=== PATIENT | female | born 1950 | race Caucasian/White ===

== ENCOUNTER 2017-11-14 16:47 | Emergency (ER) | payer MEDICARE ==
[~2017-11-14] VITALS: Ht 160 cm; Wt 68.0 kg
[2017-11-14] MEDS ORDERED: ALBUTEROL/IPRATROPIUM 3 ML NEB NEB ONE (17:30)
[2017-11-14] MEDS ORDERED: METHYLPREDNISOLONE SOD SUCC 125 MG/2ML VIAL IV ONE (20:15)
[2017-11-14] MEDS ORDERED: LEVOFLOXACIN 750MG/D5W 150ML 150 ML IV ONE (20:15)
== END 2017-11-14 20:34 | disposition left against medical advice (07) ==
LOC: ER 16:47 → FSED 20:34
DX: R07.9 Chest pain, unspecified (principal); R79.89 Other specified abnormal findings of blood chemistry; D69.6 Thrombocytopenia, unspecified; R03.0 Elevated blood-pressure reading, without diagnosis of hypertension; J44.9 Chronic obstructive pulmonary disease, unspecified; F17.210 Nicotine dependence, cigarettes, uncomplicated
CPT/HCPCS: 71046; 80048; 85025; 93005; 99284; J2930

== ENCOUNTER 2017-11-17 15:43 | Emergency (ER) | payer MEDICARE ==
[~2017-11-17] VITALS: Ht 160 cm; Wt 68.0 kg
--- OUTSIDE RECORDS SUMMARY | 2017-11-17 15:46 | XMS REPORT | Continuity of Care Document ---
Author Author [facility] Organization [facility] Address [address] [facility] [place] [address] Phone Unavailable Care Team Providers Care Yarn Man Name Role Phone NONSTAFF PCP Unavailable Insurance Providers Guarantor Karina Forte Address [address] [place] [address] Email NONE Payer [employer] Medicare Advantage Policy Number [id number] Subscriber's Name Karina Forte Relationship 18 Self / Same As Patient Group Name RETIRED Advance Directives Directive Response Recorded Date/Time Does the patient have an advance directive? No 11/14/17 6:01pm If yes, is advance directive on file with [facility]? No 11/14/17 6:01pm If not on file with [facility] will patient provide a copy? No 11/14/17 6:01pm Do you have a Directive to Physician? No 11/14/17 6:01pm Do you have a Medical Power of Vacuum Drum Drier Operator? No 11/14/17 6:01pm Do you have an out of hospital Do Not Resuscitate Order? No 11/14/17 6:01pm Do you have any special needs we should be aware of? No 11/14/17 6:01pm Do you have a support person here with you today? Yes 11/14/17 6:01pm Did patient receive Notice of Privacy Practices? Yes 11/14/17 6:01pm Did patient receive patient rights and responsibilities? Yes 11/14/17 6:01pm Problems No problem information available. Medications No medication information available. Social History No social history information available. Hospital Discharge Instructions No hospital discharge instruction information available. Plan of Care Discharge Date 11/14/17 8:34pm Disposition AGAINST MEDICAL ADVICE Condition at Discharge Other Instructions/Education Provided COPD - Emphysema Pneumonia - Bacterial Forms Provided Work/School Excuse Prescriptions See Medication Section Additional Instructions/Education Return to ER, if symptoms worsen. You have signed out of the ER "Against Medical Advice." Follow-up with Dr. Coates on 11/17/17. Take medications, as prescribed. Recommend that you wear 2L Oxygen continuously at home, until instructed otherwise by Dr. Coates. Recommend that you do your nebulizer treatments every 4 hours, around the clock Functional Status No functional status information available. Allergies, Adverse Reactions, Alerts Allergen Type Severity Reaction Status Last Updated Hydromorphone Allergy Severe Active 11/14/17 Immunizations No immunization information available. Vital Signs Acute Vital Signs Vital Response Date/Time Pulse Pulse Rate (adult) 106 bpm (60 - 90) 11/14/2017 7:10pm Respiratory Rate 22 bpm (12 - 24) 11/14/2017 7:10pm Height 5 ft 3 in 11/14/2017 5:59pm Weight 150 lb 11/14/2017 5:59pm Body Mass Index 26.6 kg/m^2 11/14/2017 5:59pm Results No relevant diagnostic test, laboratory data and/or discharge summary information available. Procedures No procedure information available. Encounters Encounter Location Arrival/Admit Date Discharge/Depart Date Attending Provider Departed Emergency Room [facility] 11/14/17 4:47pm 8:34pm MAYCOL PEARCE MD
[2017-11-17] MEDS ORDERED: METHYLPREDNISOLONE SOD SUCC 125 MG/2ML VIAL IV ONE (16:00)
--- NOTE | 2017-11-17 16:40 | Diagnostic Imaging Report ---
PROCEDURE: A single AP view of the chest. COMPARISON: None. INDICATIONS: SHORTNESS OF BREATH FINDINGS: Lines/tubes: None. Lungs: The lungs are well inflated. There is mildly increased interstitial lung markings. Pleura: There is no significant pleural effusion or pneumothorax. Heart and mediastinum: The heart and the mediastinum are unremarkable. Aorta is mildly calcified and tortuous. Bones: No acute bony abnormality. IMPRESSION: Mildly increased interstitial lung markings, suggestive of mild interstitial edema. Otherwise, unremarkable. Dictated by: Charlie Villalpando M.D. on 11/17/2017 at 16:39 Electronically approved by: Charlei Villalpando M.D. on 11/17/2017 at 16:39
[2017-11-17] MEDS ORDERED: ALBUTEROL/IPRATROPIUM 3 ML NEB NEB ONE (16:45)
[2017-11-17] MEDS ORDERED: ALBUTEROL/IPRATROPIUM 3 ML NEB NEB PRN (16:45)
[2017-11-17 16:57] LABS: BASOPHILS # (AUTO) 0.1 (0.0-0.1); BASOPHILS % 0.7 % (0.0-1.0); EOSINOPHILS # (AUTO) 0.4 (0.0-0.4); EOSINOPHILS % 5.9 % (0.0-6.0); HEMATOCRIT 40.9 % (34.2-44.1); HEMOGLOBIN 14.6 g/dL (12.0-16.0); LYMPHOCYTES # (AUTO) 1.4 (1.0-3.2); LYMPHOCYTES % 18.9 % (18.0-39.1); MEAN CORPUSCULAR HEMOGLOBIN 29.7 pg (28-32); MEAN CORPUSCULAR HGB CONC 35.7 g/dL (31-35); MEAN CORPUSCULAR VOLUME 83.1 fL (81-99); MONOCYTES # (AUTO) 0.4 (0.2-0.8); MONOCYTES % 5.3 % (4.4-11.3); NEUTROPHILS # (AUTO) 4.9 (2.1-6.9); NEUTROPHILS % 68.6 % (38.7-80.0); PLATELET COUNT 113 x10e3/uL (140-360); RED BLOOD COUNT 4.92 x10e6/uL (3.6-5.1); RED CELL DISTRIBUTION WIDTH 14.6 % (11.7-14.4)
[2017-11-17 17:16] LABS: ALANINE AMINOTRANSFERASE 32 IU/L (0-55); ALBUMIN/GLOBULIN RATIO 1.2 (0.8-2.0); ALKALINE PHOSPHATASE 118 IU/L (40-150); BLOOD UREA NITROGEN 10 mg/dL (7-26); BUN/CREATININE RATIO 15 (6-25); CALCIUM 9.2 mg/dL (8.4-10.2); CARBON DIOXIDE 25 mmol/L (22-29); CHLORIDE 105 mmol/L (98-107); CREATINE KINASE 75 IU/L (29-168); CREATININE, SERUM 0.67 mg/dL (0.57-1.11); EST GLOMERULAR FILTRATION RATE > 60 ML/MIN (60-); GLUCOSE 136 mg/dL (74-118); LIPASE 31 U/L (8-78); MAGNESIUM 1.4 MG/DL (1.3-2.1); SODIUM 140 mmol/L (136-145)
[2017-11-17 17:35] LABS: THYROID STIMULATING HORMONE 0.737 uIU/mL (0.350-4.940)
[2017-11-17] MEDS ORDERED: SODIUM CHLORIDE 0.9% 1000ML 1,000 ML IV STA (17:59)
[2017-11-17 18:14] LABS: BILIRUBIN,URINE NEGATIVE (NEGATIVE); CLARITY,URINE CLEAR (CLEAR); COLOR,URINE YELLOW (YELLOW); KETONES,URINE NEGATIVE (NEGATIVE); LEUKOCYTE ESTERASE ,URINE NEGATIVE (NEGATIVE); NITRITE,URINE NEGATIVE (NEGATIVE); PROTEIN,URINE DIPSTICK NEGATIVE (NEGATIVE); URINE UROBILINOGEN 0.2 mg/dL (0.2 - 1)
[2017-11-17 18:28] LABS: BACTERIA,URINE FEW /HPF; EPITHELIAL CELLS,URINE MODERATE /LPF
[2017-11-17] MEDS ORDERED: SODIUM CHLORIDE 0.9% 1000ML 1,000 ML IV SCH (18:28)
[2017-11-17] MEDS ORDERED: NICOTINE 21 MG/EA PATCH TOP SCH (18:30)
[2017-11-17] MEDS ORDERED: AZITHROMYCIN 500MG/SOD CHL 0.9% 250ML BAG IV SCH (18:30)
[2017-11-17] MEDS ORDERED: ASPIRIN 81 MG ENTERIC COATED PO SCH (18:45)
[2017-11-17] MEDS ORDERED: AZITHROMYCIN 500MG/NS 250 ML 250 ML IV SCH (18:45)
[2017-11-17] MEDS: NITROGLYCERIN 0.4 MG SUBL SL PRN ×2 (18:55→19:00)
[2017-11-17] MEDS ORDERED: IPRATROPIUM BROMIDE 0.02% 2.5 ML NEB NEB SCH (19:00)
[2017-11-17] MEDS ORDERED: ALBUTEROL SULF 0.083% NEB SOLN 3 ML NEB NEB SCH (19:00)
[2017-11-18] MEDS ORDERED: METHYLPREDNISOLONE SOD SUCC 40 MG/ML VIAL IV SCH
[2017-11-18] MEDS ORDERED: ASPIRIN 325 MG TAB PO SCH (09:00)
== END 2017-11-17 20:02 | disposition left against medical advice (07) ==
LOC: ER 15:43
DX: R06.09 Other forms of dyspnea (principal); R07.9 Chest pain, unspecified; J44.9 Chronic obstructive pulmonary disease, unspecified; F17.210 Nicotine dependence, cigarettes, uncomplicated; Z99.81 Dependence on supplemental oxygen
CPT/HCPCS: 36415; 71045; 80053; 81001; 82550; 82553; 83605; 83690; 83735; 83880; 84443; 84484; 85025; 87040; 87400; 93005; 94640; 99284; J0456; J2930; J7030

== ENCOUNTER 2018-02-23 17:13 | Observation (INO) | payer MEDICARE ==
[~2018-02-23] VITALS: Ht 157.5 cm; Wt 73.7 kg
--- OUTSIDE RECORDS SUMMARY | 2018-02-23 17:16 | XMS REPORT | Continuity of Care Document ---
Author Author [facility] Organization [facility] Address [address] [place] [address] Phone Unavailable Care Team Providers Care Armhole Baster Hand Name Role Phone NONSTAFF PCP Unavailable Insurance Providers Guarantor Karina Forte Address [address] [place] [address] [facility] [employer] Medicare Advantage Policy Number [id number] Subscriber's Name Karina Forte Relationship 18 Self / Same As Patient Group Name RETIRED Effective Date 93 Advance Directives Directive Response Recorded Date/Time Does the patient have an advance directive? No 11/14/17 6:01pm If yes, is advance directive on file with [facility]? No 11/14/17 6:01pm If not on file with [facility] will patient provide a copy? No 11/14/17 6:01pm Do you have a Directive to Physician? No 11/17/17 4:07pm Do you have a Medical Power of Mold Stacker? No 11/17/17 4:07pm Do you have an out of hospital Do Not Resuscitate Order? No 11/17/17 4:07pm Do you have any special needs we should be aware of? No 11/17/17 4:07pm Do you have a support person here with you today? Yes 11/17/17 4:07pm Did patient receive Notice of Privacy Practices? Yes 11/17/17 4:07pm Did patient receive patient rights and responsibilities? Yes 11/17/17 4:07pm Problems No problem information available. Medications No medication information available. Social History Smoking Status Start Date Stop Date Current every day smoker Hospital Discharge Instructions No hospital discharge instruction information available. Plan of Care Discharge Date 11/17/17 8:02pm Disposition AGAINST MEDICAL ADVICE Condition at Discharge Stable Forms Provided Work/School Excuse Prescriptions See Medication Section Functional Status No functional status information available. Allergies, Adverse Reactions, Alerts Allergen Type Severity Reaction Status Last Updated Hydromorphone Allergy Severe Active 11/14/17 Immunizations No immunization information available. Vital Signs Acute Vital Signs Vital Response Date/Time Pulse Pulse Rate (adult) 95 bpm (60 - 90) 11/17/2017 6:00pm Pulse Pulse Rate (adult) 88 bpm (60 - 90) 11/17/2017 6:00pm Respiratory Rate 18 bpm (12 - 24) 11/17/2017 6:00pm Height 5 ft 3 in 11/17/2017 4:00pm Weight 150 lb 11/17/2017 4:00pm Body Mass Index 26.6 kg/m^2 11/17/2017 4:00pm Results Laboratory Results Test Name Result Units Flags Reference Collection Date/Time Result Date/ Time Comments White Blood Count 7.16 x10e3/uL 4.8-10.8 11/17/2017 4:40pm 11/17/2017 4 :59pm Red Blood Count 4.92 x10e6/uL 3.6-5.1 11/17/2017 4:40pm 11/17/2017 4: 59pm Hemoglobin 14.6 g/dL 12.0-16.0 11/17/2017 4:40pm 11/17/2017 4:59pm Hematocrit 40.9 % 34.2-44.1 11/17/2017 4:40pm 11/17/2017 4:59pm Mean Corpuscular Volume 83.1 fL 81-99 11/17/2017 4:40pm 11/17/2017 4: 59pm Mean Corpuscular Hemoglobin 29.7 pg 28-32 11/17/2017 4:40pm 11/17/2017 4:59pm Mean Corpuscular Hemoglobin Concent 35.7 g/dL H 31-35 11/17/2017 4:40pm 11/17/2017 4:59pm Red Cell Distribution Width 14.6 % H 11.7-14.4 11/17/2017 4:40pm 2017 4:59pm Platelet Count 113 x10e3/uL L 140-360 11/17/2017 4:40pm 11/17/2017 4: 59pm Neutrophils (%) (Auto) 68.6 % 38.7-80.0 11/17/2017 4:40pm 11/17/2017 4: 59pm Lymphocytes (%) (Auto) 18.9 % 18.0-39.1 11/17/2017 4:40pm 11/17/2017 4: 59pm Monocytes (%) (Auto) 5.3 % 4.4-11.3 11/17/2017 4:40pm 11/17/2017 4: 59pm Eosinophils (%) (Auto) 5.9 % 0.0-6.0 11/17/2017 4:40pm 11/17/2017 4: 59pm Basophils (%) (Auto) 0.7 % 0.0-1.0 11/17/2017 4:40pm 11/17/2017 4:59pm IM GRANULOCYTES % 0.6 % 0.0-1.0 11/17/2017 4:40pm 11/17/2017 4:59pm Neutrophils # (Auto) 4.9 2.1-6.9 11/17/2017 4:40pm 11/17/2017 4:59pm Lymphocytes # (Auto) 1.4 1.0-3.2 11/17/2017 4:40pm 11/17/2017 4:59pm Monocytes # (Auto) 0.4 0.2-0.8 11/17/2017 4:40pm 11/17/2017 4:59pm Eosinophils # (Auto) 0.4 0.0-0.4 11/17/2017 4:40pm 11/17/2017 4:59pm Basophils # (Auto) 0.1 0.0-0.1 11/17/2017 4:40pm 11/17/2017 4:59pm Absolute Immature Granulocyte (auto 0.04 x10e3/uL 0-0.1 11/17/2017 4: 40pm 11/17/2017 4:59pm Urine Color YELLOW YELLOW 11/17/2017 6:10pm 11/17/2017 6:15pm Urine Clarity CLEAR CLEAR 11/17/2017 6:10pm 11/17/2017 6:15pm Urine Specific [place] 1.015 1.010-1.025 11/17/2017 6:10pm 2017 6:15pm Urine pH 8 H 5 - 7 11/17/2017 6:10pm 11/17/2017 6:15pm Urine Leukocyte Esterase NEGATIVE NEGATIVE 11/17/2017 6:10pm 2017 6:15pm Urine Nitrite NEGATIVE NEGATIVE 11/17/2017 6:10pm 11/17/2017 6:15pm Urine Protein NEGATIVE NEGATIVE 11/17/2017 6:10pm 11/17/2017 6:15pm Urine Glucose (UA) NEGATIVE NEGATIVE 11/17/2017 6:10pm 11/17/2017 6: 15pm Urine Ketones NEGATIVE NEGATIVE 11/17/2017 6:10pm 11/17/2017 6:15pm Urine Urobilinogen 0.2 mg/dL 0.2 - 1 11/17/2017 6:10pm 11/17/2017 6: 15pm Urine Bilirubin NEGATIVE NEGATIVE 11/17/2017 6:10pm 11/17/2017 6: 15pm Urine Blood NEGATIVE NEGATIVE 11/17/2017 6:10pm 11/17/2017 6:15pm Urine WBC NONE /HPF 0-5 11/17/2017 6:10pm 11/17/2017 6:28pm Urine RBC NONE /HPF 0-5 11/17/2017 6:10pm 11/17/2017 6:28pm Urine Bacteria FEW /HPF NONE 11/17/2017 6:10pm 11/17/2017 6:28pm Urine Epithelial Cells MODERATE /LPF NONE 11/17/2017 6:10pm 11/17/2017 6:28pm Sodium Level 140 mmol/L 136-145 11/17/2017 4:40pm 11/17/2017 5:17pm Potassium Level 4.0 mmol/L 3.5-5.1 11/17/2017 4:40pm 11/17/2017 5:17pm Chloride Level 105 mmol/L 98-107 11/17/2017 4:40pm 11/17/2017 5:17pm Influenza Virus Types A,B Antigen NEGATIVE NEGATIVE 11/17/2017 6:30pm 11/17/2017 6:53pm Carbon Dioxide Level 25 mmol/L 22-29 11/17/2017 4:40pm 11/17/2017 5: 17pm Anion Gap 14.0 mmol/L 8-16 11/17/2017 4:40pm 11/17/2017 5:17pm Blood Urea Nitrogen 10 mg/dL 7-26 11/17/2017 4:40pm 11/17/2017 5:17pm Creatinine 0.67 mg/dL 0.57-1.11 11/17/2017 4:40pm 11/17/2017 5:17pm BUN/Creatinine Ratio 15 6-25 11/17/2017 4:40pm 11/17/2017 5:17pm Estimat Glomerular Filtration Rate > 60 ML/MIN 60- 11/17/2017 4:40pm 5:17pm Ranges were taken from the National Kidney Disease Education Program and the National Kidney Foundation literature. Reference ranges: 60 or greater: Normal 16-59 (for 3 consecutive months): Chronic kidney disease 15 or less: Kidney failure Glucose Level 136 mg/dL H 74-118 11/17/2017 4:40pm 11/17/2017 5:17pm Calcium Level 9.2 mg/dL 8.4-10.2 11/17/2017 4:40pm 11/17/2017 5:17pm Lactic Acid Level 17.4 MG/DL 4.5-19.8 11/17/2017 4:40pm 11/17/2017 5: 09pm Magnesium Level 1.4 MG/DL 1.3-2.1 11/17/2017 4:40pm 11/17/2017 5:17pm Total Bilirubin 0.7 mg/dL 0.2-1.2 11/17/2017 4:40pm 11/17/2017 5:17pm Aspartate Amino Transf (AST/SGOT) 25 IU/L 5-34 11/17/2017 4:40pm 2017 5:17pm Alanine Aminotransferase (ALT/SGPT) 32 IU/L 0-55 11/17/2017 4:40pm 01/2018 5:17pm Total Protein 7.3 g/dL 6.5-8.1 11/17/2017 4:40pm 11/17/2017 5:17pm Albumin 4.0 g/dL 3.5-5.0 11/17/2017 4:40pm 11/17/2017 5:17pm Globulin 3.3 g/dL 2.3-3.5 11/17/2017 4:40pm 11/17/2017 5:17pm Albumin/Globulin Ratio 1.2 0.8-2.0 11/17/2017 4:40pm 11/17/2017 5: 17pm Alkaline Phosphatase 118 IU/L 40-150 11/17/2017 4:40pm 11/17/2017 5: 17pm B-Type Natriuretic Peptide 153.0 pg/mL H 0-100 11/17/2017 4:40pm 2017 5:21pm Creatine Kinase 75 IU/L 29-168 11/17/2017 4:40pm 11/17/2017 5:17pm Creatine Kinase MB 1.80 ng/mL 0-5.0 11/17/2017 4:40pm 11/17/2017 5: 40pm Troponin I 0.005 ng/mL 0-0.300 11/17/2017 4:40pm 11/17/2017 5:40pm Lipase 31 U/L 8-78 11/17/2017 4:40pm 11/17/2017 5:17pm Thyroid Stimulating Hormone (TSH) 0.737 uIU/mL 0.350-4.940 11/17/2017 4: 40pm 11/17/2017 5:40pm Procedures No procedure information available. Encounters Encounter Location Arrival/Admit Date Discharge/Depart Date Attending Provider Departed Emergency Room [facility] 11/17/17 3:43pm 8:02pm VLAD CANTU MD Departed Emergency Room [facility] 11/14/17 4:47pm 8:34pm MAYCOL PEARCE MD
--- OUTSIDE RECORDS SUMMARY | 2018-02-23 17:16 | XMS REPORT ---
Author Author [facility] Address Unknown Phone Unavailable Care Team Providers Care Director It Name Role Phone VLAD CANTU Unavailable Unavailable Problems This patient has no known problems. Allergies, Adverse Reactions, Alerts This patient has no known allergies or adverse reactions. Medications This patient has no known medications. Results Test Description Test Time Test Comments Text Results Atomic Results Result Comments CHEST SINGLE (PORTABLE) [place] [id number] Patient Name: NILSON FORTE MR #: [id number] : 1950 Age/Sex: 67/F Req #: [id number] Adm Physician: Ordered by: S[employer]TO [employer]AN[employer] COIN COLLECTOR Report #: [id number] Location: ER Room/Bed: Procedure: [id number] DX/CHEST SINGLE (PORTABLE) Exam Date: Exam Time: REPORT STATUS: Signed PROCEDURE: A single AP view of the chest. COMPARISON: None. INDICATIONS: SHORTNESS OF BREATH FINDINGS: Lines/tubes: None. Lungs: The lungs are well inflated. There is mildly increased interstitial lung markings. Pleura: There is no significant pleural effusion or pneumothorax. Heart and mediastinum: The heart and the mediastinum are unremarkable. Aorta is mildly calcified and tortuous. Bones: No acute bony abnormality. IMPRESSION: Mildly increased interstitial lung markings, suggestive of mild interstitial edema. Otherwise, unremarkable. Dictated by: Charlie Friedman M.D. on 11/17/2017 at 16:39 Electronically approved by: Charlie Friedman M.D. on 11/17/2017 at 16:39 Dictated By: CHARLIE FRIEDMAN MD [id number] Transcribed By: DINORA on 11/17/17 1640 COPY TO: SIXTO [employer]ANING NP
[2018-02-23] MEDS ORDERED: IPRATROPIUM BROMIDE 0.02% 2.5 ML NEB NEB STA (17:37)
[2018-02-23] MEDS ORDERED: SODIUM CHLORIDE 0.9% 500ML 500 ML IV STA (17:37)
[2018-02-23] MEDS ORDERED: ALBUTEROL SULF 0.083% NEB SOLN 3 ML NEB NEB STA (17:40)
[2018-02-23] MEDS ORDERED: METHYLPREDNISOLONE SOD SUCC 125 MG/2ML VIAL IV ONE (17:45)
--- NOTE | 2018-02-23 18:19 | Diagnostic Imaging Report ---
PROCEDURE: A single AP view of the chest. COMPARISON: Chest x-ray 11/17/2017. INDICATIONS: chest pains, copd, coughing up blood FINDINGS: Lines/tubes: None. Lungs: Lungs are inflated. Mild bibasilar atelectasis. Pleura: There is no pleural effusion or pneumothorax. Heart and mediastinum: The heart and the mediastinum are unremarkable. Aorta is mildly tortuous with atherosclerotic calcifications. Bones: No acute bony abnormality. IMPRESSION: Mild bibasilar atelectasis. No acute cardiopulmonary disease. Dictated by: Deonte Celis M.D. on 02/23/2018 at 18:22 Electronically approved by: Deonte Celis M.D. on 02/23/2018 at 18:22
--- NOTE | 2018-02-23 18:28 | Diagnostic Imaging Report ---
History:Syncope Comparison studies:None Technique: Axial images were obtained from the skull base to the vertex. Coronal and sagittal images reconstructed from the axial data. Intravenous contrast: None Findings: Some of the images are degraded by motion artifact. In spite of the artifacts: Scalp/skull: No abnormalities. Extra-axial spaces: No masses. No fluid collections. Brain sulci: Mildly prominent. Ventricles: Mild compensatory dilatation. No hydrocephalus. Parenchyma: Subtle hypodensities in the supratentorial white matter are small vessel ischemic changes. No masses, hemorrhage, acute or chronic cortical vascular insults. Sellar/suprasellar region: No abnormalities. Craniocervical junction: Patent foramen magnum. No Chiari one malformation. Incidental findings: Atherosclerotic calcifications in the carotid siphons . Impression: No acute abnormalities in spite of motion artifacts. Chronic findings: 1. Mild generalized volume loss. 2. Mild supratentorial white matter small vessel ischemic changes. Signed by: Dr. Jai Shin M.D. on 02/23/2018 7:31 PM
[2018-02-23 19:07] LABS: BASOPHILS # (AUTO) 0.1 (0.0-0.1); BASOPHILS % 0.9 % (0.0-1.0); EOSINOPHILS # (AUTO) 0.3 (0.0-0.4); EOSINOPHILS % 4.4 % (0.0-6.0); HEMATOCRIT 42.3 % (34.2-44.1); HEMOGLOBIN 15.1 g/dL (12.0-16.0); LYMPHOCYTES # (AUTO) 1.6 (1.0-3.2); LYMPHOCYTES % 21.4 % (18.0-39.1); MEAN CORPUSCULAR HGB CONC 35.7 g/dL (31-35); MEAN CORPUSCULAR VOLUME 83.9 fL (81-99); MONOCYTES # (AUTO) 0.5 (0.2-0.8); MONOCYTES % 6.5 % (4.4-11.3); NEUTROPHILS # (AUTO) 4.9 (2.1-6.9); NEUTROPHILS % 66.3 % (38.7-80.0); PLATELET COUNT 148 x10e3/uL (140-360); RED BLOOD COUNT 5.04 x10e6/uL (3.6-5.1); RED CELL DISTRIBUTION WIDTH 13.7 % (11.7-14.4)
[2018-02-23 19:18] LABS: INR 1.09; PROTHROMBIN TIME 13.3 seconds (11.9-14.5)
[2018-02-23 19:19] LABS: PARTIAL THROMBOPLASTIN TIME 29.7 seconds (23.8-35.5)
[2018-02-23 19:26] LABS: ALANINE AMINOTRANSFERASE 28 IU/L (0-55); ALBUMIN 4.1 g/dL (3.5-5.0); ALBUMIN/GLOBULIN RATIO 1.1 (0.8-2.0); ALKALINE PHOSPHATASE 211 IU/L (40-150); BLOOD UREA NITROGEN 13 mg/dL (7-26); BUN/CREATININE RATIO 18 (6-25); CALCIUM 10.2 mg/dL (8.4-10.2); CARBON DIOXIDE 26 mmol/L (22-29); CHLORIDE 102 mmol/L (98-107); CREATINE KINASE 64 IU/L (29-168); CREATININE, SERUM 0.74 mg/dL (0.57-1.11); EST GLOMERULAR FILTRATION RATE > 60 ML/MIN (60-); GLUCOSE 134 mg/dL (74-118); MAGNESIUM 1.5 MG/DL (1.3-2.1); SODIUM 139 mmol/L (136-145)
--- NOTE | 2018-02-23 19:37 | Diagnostic Imaging Report ---
History: Syncope Comparison studies: None Technique: Axial images were obtained through the cervical region.. Coronal and sagittal images reconstructed from the axial data.. Intravenous contrast: None Findings: Fractures: None. Soft tissues: No gross abnormalities. Atlantoaxial articulation: Mild degenerative changes. Alignment: Normal lordosis. No scoliosis. Cervicomedullary junction: No abnormalities. The foramen magnum is patent. Vertebrae: No infection or neoplasm. Degenerative changes: Mildly degenerated discs at C3-4 and from C5 to C7. Mild bilateral facet arthrosis from C2 to T1 Patent spinal canal and foramina. No disc herniations. IMPRESSION: 1. No acute abnormalities. 2. Cannot adequately evaluate for ligament, spinal cord and or vascular abnormalities. 3. Degenerative changes as described. Signed by: Dr. Jai Shin M.D. on 02/23/2018 7:34 PM
[2018-02-23] MEDS ORDERED: KETOROLAC TROMETHAMINE 30 MG/ML VIAL IV ONE (20:00)
[2018-02-23] MEDS ORDERED: ONDANSETRON HCL INJ 2 MG/ML VIAL IV PRN (20:00)
[2018-02-23] MEDS ORDERED: ACETAMINOPHEN 325 MG TAB PO PRN (20:00)
[2018-02-23] MEDS ORDERED: MORPHINE SULFATE 2 MG/ML SYR IV PRN (20:45)
[2018-02-23 22:57] VITALS: BP 142/69
[2018-02-23] MEDS: METHYLPREDNISOLONE SOD SUCC 125 MG/2ML VIAL IV SCH (23:25)
[2018-02-23 23:55] VITALS: BP 142/69
[2018-02-24] MEDS: ALBUTEROL SULF 0.083% NEB SOLN 3 ML NEB NEB SCH ×3 (00:05→07:00)
[2018-02-24] MEDS: IPRATROPIUM BROMIDE 0.02% 2.5 ML NEB NEB SCH ×5 (00:05→15:00)
[2018-02-24] MEDS ORDERED: TEMAZEPAM15 MG PO (00:25)
[2018-02-24] MEDS ORDERED: LORAZEPAM1 MG PO (00:29)
[2018-02-24] MEDS ORDERED: BACLOFEN10 MG PO (00:29)
[2018-02-24] MEDS ORDERED: PROAIR HFA INH8.5 GM INH (00:29)
[2018-02-24] MEDS ORDERED: ASPIRIN81 MG PO (00:29)
[2018-02-24] MEDS ORDERED: CODEINE SULFATE30 MG PO (00:29)
[2018-02-24] MEDS ORDERED: TEMAZEPAM 15 MG CAP PO SCH ×2 (00:31→21:00)
[2018-02-24 04:10] VITALS: BP 133/78
[2018-02-24 04:13] LABS: CREATINE KINASE MB 1.9 ng/mL (0-5.0)
[2018-02-24] MEDS: METHYLPREDNISOLONE SOD SUCC 125 MG/2ML VIAL IV SCH (05:20)
[2018-02-24 05:42] LABS: BASOPHILS % 0.5 % (0.0-1.0); HEMATOCRIT 35.8 % (34.2-44.1); LYMPHOCYTES # (AUTO) 0.5 (1.0-3.2); LYMPHOCYTES % 23.4 % (18.0-39.1); MEAN CORPUSCULAR HEMOGLOBIN 29.8 pg (28-32); MEAN CORPUSCULAR HGB CONC 35.8 g/dL (31-35); MEAN CORPUSCULAR VOLUME 83.4 fL (81-99); MONOCYTES % 1.5 % (4.4-11.3); NEUTROPHILS # (AUTO) 1.5 (2.1-6.9); NEUTROPHILS % 74.1 % (38.7-80.0); PLATELET COUNT 100 x10e3/uL (140-360); RED BLOOD COUNT 4.29 x10e6/uL (3.6-5.1); RED CELL DISTRIBUTION WIDTH 13.3 % (11.7-14.4)
[2018-02-24 06:02] LABS: ALANINE AMINOTRANSFERASE 23 IU/L (0-55); ALBUMIN 3.4 g/dL (3.5-5.0); ALKALINE PHOSPHATASE 176 IU/L (40-150); ANION GAP 11.7 mmol/L (8-16); BLOOD UREA NITROGEN 17 mg/dL (7-26); BUN/CREATININE RATIO 23 (6-25); CALCIUM 9.6 mg/dL (8.4-10.2); CARBON DIOXIDE 25 mmol/L (22-29); CHLORIDE 104 mmol/L (98-107); CHOLESTEROL 139 MD/DL (0-199); CREATININE, SERUM 0.73 mg/dL (0.57-1.11); EST GLOMERULAR FILTRATION RATE > 60 ML/MIN (60-); GLUCOSE 285 mg/dL (74-118); HDL CHOLESTEROL 46 MG/DL (40-60); LDL CHOLESTEROL 84 MG/DL (60-130); POTASSIUM 4.7 mmol/L (3.5-5.1); SODIUM 136 mmol/L (136-145); TRIGLYCERIDES 47 MG/DL (0-149)
[2018-02-24 06:09] LABS: HEMOGLOBIN 12.8 g/dL (12.0-16.0)
[2018-02-24 06:23] LABS: FREE THYROXINE INDEX 2.1305 (1.4-3.8); THYROID STIMULATING HORMONE 0.203 uIU/mL (0.350-4.940)
[2018-02-24 08:05] VITALS: BP 133/78
[2018-02-24] MEDS ORDERED: ASPIRIN 81 MG ENTERIC COATED PO SCH (09:00)
[2018-02-24] MEDS ORDERED: NICOTINE 21 MG/EA PATCH TOP SCH (09:00)
[2018-02-24 09:16] VITALS: BP 144/74
[2018-02-24] MEDS ORDERED: LIDOCAINE 1% W/EPINEPHRINE 20 ML VIAL ONE (11:35)
[2018-02-24] MEDS ORDERED: SODIUM CHLORIDE 0.9% 100 ML 0 ML ONE (12:25)
[2018-02-24] MEDS ORDERED: CEFAZOLIN SOD 1 GM VIAL ONE (12:25)
[2018-02-24 12:45] VITALS: BP 138/78
--- NOTE | 2018-02-24 13:11 | Consultation ---
DATE OF CONSULTATION: February 24, 2018 REASON FOR CONSULTATION: Recurrent syncope. HISTORY OF PRESENT ILLNESS: Ms. Mack is a 67-year-old lady with past medical history of COPD, emphysema, anxiety, chronic back pains and knee pains who has been experiencing recurrent syncope episodes for the past several months. She reports that all of a sudden light goes out and she is on the floor and is more less back to normal. Most recently she has been utilizing a walking aid to hopefully help her out and minimize any sort of injury. On Friday she was walking with her walker and she passed out without any prodrome symptoms and woke up on the floor shortly afterwards without any luckily major injuries. She denies any loss of bowel or bladder habits. No prior history of seizure disorder. On Friday patient was found on the floor after waking up from her bed and was walking around in her room and had a second episode of such. On telemetry monitoring she has been in normal sinus rhythm. Biomarkers are negative. EKG revealed normal sinus rhythm. Long discussion with the patient and family in terms of management options. PAST MEDICAL HISTORY 1. Anxiety. 2. Insomnia. 3. COPD/emphysema. 4. History of bowel obstruction. 5. 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 6. GERD. PAST SURGICAL HISTORY 1. Hysterectomy. 2. Bilateral tubal ligation. 3. History of right total knee arthroplasty surgery. 4. History of back surgery. 5. History of partial colectomy. 6. History of cholecystectomy. 7. History of tonsillectomy. FAMILY HISTORY: Mother alive at 82, had a stroke. Father is unknown. She has had a sister who had stroke and heart attack later in life. SOCIAL HISTORY: She is a smoker since the age of 16, has a 50-pack year smoking history. Denies any alcohol or illicit drug use. ALLERGIES: DILAUDID WHICH CAUSES CONFUSION. CURRENT MEDICATIONS: Include aspirin 81 mg daily, Atrovent p.r.n., Tylenol, temazepam 15 nightly, Zofran 4 mg p.r.n. and nicotine patch. REVIEW OF SYSTEMS GENERAL: Denies any fevers, chills, or any weight changes. HEENT: There is occasional visual blurriness. No sore throat or stuffy nose. RESPIRATORY: Denies any pleuritic chest pain. Has chronic exertional dyspnea. CARDIOVASCULAR: Denies any chest pain or discomfort. Recurrent syncope as per HPI. GI: Positive for constipation and occasional GERD. No bright red blood, melena, hematemesis. : Denies any dysuria, pyuria, urinary frequency. ENDOCRINE: No diabetes or thyroid issues. NEUROLOGIC: Positive for recurrent syncope. Has some gait unsteadiness and utilizes a walking aid for ambulation. EXTREMITIES: Positive for intermittent ankle swelling and bilateral knee pain and does report back pain. Remainder of review of systems negative otherwise as mentioned. PHYSICAL EXAMINATION VITAL SIGNS: Height of 5 feet 2 inches, weight of 168 pounds. Temperature 96.4, pulse 75, respiratory rate 20, O2 sat 94% on room air, pulse of 75. GENERAL: This is a well-nourished, well-developed lady who appears older than stated age. Currently no apparent distress. HEENT: Pupils equal, round and react to light. Extraocular movements are intact. Oropharynx is clear. NECK: No elevation in jugular venous pulsation. Faint bilateral carotid bruits. CARDIOVASCULAR: Regular rate and rhythm. Normal S1, S2. Soft 2/6 systolic murmur to the left lower sternal border. LUNGS: Show diminished air flow and poor air entry compatible with COPD type changes. ABDOMEN: Soft, nontender, nondistended. Normoactive bowel sounds. There is stigmata of old surgical scars. BACK: No costovertebral angle tenderness. EXTREMITIES: Warm with absent pedal pulses, 1+ femoral pulses and right total knee replacement scar. NEUROLOGIC: Cranial nerves II-XII seemingly preserved. Strength is weak all 4 extremities but symmetric and has abnormal gait. LABS: Reviewed. White count 2.05, hemoglobin 12.8, hematocrit 35.8, platelets of 100. Sodium 136, potassium 4.7, chloride 104, bicarb 25, BUN 17, creatinine 0.73, glucose 285. INR is 1.09, AST 26, ALT 23, alk phos 176, total bili 1.2. EKG reveals normal sinus rhythm, normal axis. No ST-T wave changes concerning for ischemia. DIAGNOSES 1. Recurrent syncopal episodes with some suspicion that this could be cardiogenic in origin but unclear etiology. 2. Chronic obstructive pulmonary disease smoker. 3. Severe degenerative joint disease and debility. 4. Chronic back pain. Does report taking pain medications at home. 5. Exertional dyspnea. PLAN/RECOMMENDATIONS 1. From a cardiovascular standpoint, we will go ahead and proceed with implantable loop recorder as we need to definitively find out if this recurrent syncope is cardiac in origin. She has had previous hospitalizations for this issue according to the patient and we need to come up with a definitive diagnosis and this would be the best way how. 2. We will check echocardiogram to evaluate her cardiac function. 3. We will continue telemetry monitoring while she is here. 4. Carotid duplex in light of her carotid bruits and heavy smoking history. 5. We will continue to follow this patient. Thank you for this referral. Job#: [id number] MARIBEL
--- NOTE | 2018-02-24 15:04 | Operative Report ---
DATE OF PROCEDURE: February 24, 2018 PROCEDURE PERFORMED: Implantation of an implantable loop recorder. INDICATIONS FOR THE PROCEDURE: This is a 67-year-old lady with history of recurrent syncope of unknown origin. The patient has had multiple collapse spells without prodrome, and this is to definitively figure out any cardiac source of syncope and prolonged monitoring. DESCRIPTION OF PROCEDURE: After risks, benefits, pros and cons of today's procedure were explained to the patient as well as the patient's sister, they agreed to proceed. She was brought down to the cardiac catheterization laboratory where the left parasternal region was prepped and draped in the usual sterile fashion. One percent lidocaine solution with 1:100,000 epinephrine solution was utilized to numb the left parasternal region at the 4th and 5th left intercostal space at a 45-degree trajectory heading towards the apex. At that point in time, we took the Medtronic injectable loop recorder, specifically the Reveal LINQ device. We took initially the scalpel and made a stab incision. Next, we took the injection system of the Reveal LINQ and injected it into the space for the delivery system. At the conclusion of the case, the skin was approximated, and Dermabond solution was applied, achieving well approximation, and no blood loss was attributed to the case. COMPLICATIONS: None. ESTIMATED BLOOD LOSS: None. FINDINGS 1. Successful implantation of a Medtronic Reveal LINQ, serial number [id number], MR conditional device, successfully implanted in the 4th to 5th left intercostal space with a trajectory towards the apex without any complications. 2. IV Ancef was given for antibiotic prophylaxis. PLAN/RECOMMENDATIONS 1. Patient will be instructed to keep a dressing on the incision site for about 5 days, and then she can take it off. 2. Further plan/recommendations after the next syncopal episode so that we can determine if there are any cardiac or other issues. Job#: [id number] TIMBO [place]
[2018-02-24 17:00] VITALS: BP 146/78
[2018-02-25] MEDS ORDERED: NS IV PRN (00:15)
[2018-02-25] MEDS ORDERED: CEFAZOLIN SOD IV PRN (00:15)
[2018-02-25] MEDS ORDERED: CEFAZOLIN SOD 1 GM VIAL IV PRN (05:00)
== END 2018-02-24 17:37 | disposition home or self-care (01) ==
LOC: ER 17:13 → ERHOLD 21:09 → MED/SURG2 22:49
PROVIDERS: ADMIT Internal Medicine; ATTEND Internal Medicine
DX: R55 Syncope and collapse (principal); J44.1 Chronic obstructive pulmonary disease with (acute) exacerbation; J96.10 Chronic respiratory failure, unspecified whether with hypoxia or hypercapnia; F17.210 Nicotine dependence, cigarettes, uncomplicated; G89.29 Other chronic pain; M17.0 Bilateral primary osteoarthritis of knee; Z82.3 Family history of stroke
CPT/HCPCS: 33282; 36415 ×2; 70450; 71045; 72125; 80053 ×2; 80061; 82550 ×2; 82553 ×2; 83735; 83880; 84436; 84443 ×2; 84479; 84484 ×2; 85025 ×2; 85610; 85730; 93005; 93306; 93880; 94640 ×3; 99284; C1764; G0378 ×2; J1885; J2930 ×2; J7040; J0690

== ENCOUNTER 2018-04-02 16:52 | Emergency (ER) | payer MEDICARE ==
[~2018-04-02] VITALS: Ht 157.5 cm; Wt 73.5 kg
[~2018-04-02 16:52] MED LIST: ASPIRIN81 MG PO; BACLOFEN10 MG PO; CODEINE SULFATE30 MG PO; LORAZEPAM1 MG PO; PROAIR HFA INH8.5 GM INH; TEMAZEPAM15 MG PO
[2018-04-02] MEDS ORDERED: ALBUTEROL/IPRATROPIUM 3 ML NEB NEB ONE (17:15)
[2018-04-02 17:35] LABS: BASOPHILS # (AUTO) 0.1 (0.0-0.1); BASOPHILS % 0.9 % (0.0-1.0); EOSINOPHILS # (AUTO) 0.6 (0.0-0.4); EOSINOPHILS % 9.6 % (0.0-6.0); HEMATOCRIT 43.2 % (34.2-44.1); HEMOGLOBIN 15.2 g/dL (12.0-16.0); LYMPHOCYTES # (AUTO) 1.8 (1.0-3.2); MEAN CORPUSCULAR HEMOGLOBIN 29.2 pg (28-32); MEAN CORPUSCULAR HGB CONC 35.2 g/dL (31-35); MEAN CORPUSCULAR VOLUME 82.9 fL (81-99); MONOCYTES # (AUTO) 0.5 (0.2-0.8); MONOCYTES % 7.4 % (4.4-11.3); NEUTROPHILS # (AUTO) 3.5 (2.1-6.9); NEUTROPHILS % 53.9 % (38.7-80.0); PLATELET COUNT 101 x10e3/uL (140-360); RED BLOOD COUNT 5.21 x10e6/uL (3.6-5.1); RED CELL DISTRIBUTION WIDTH 15.9 % (11.7-14.4)
[2018-04-02 17:56] LABS: ALANINE AMINOTRANSFERASE 24 IU/L (0-55); ALBUMIN 3.7 g/dL (3.5-5.0); ALBUMIN/GLOBULIN RATIO 1.2 (0.8-2.0); ALKALINE PHOSPHATASE 180 IU/L (40-150); BLOOD UREA NITROGEN 16 mg/dL (7-26); BUN/CREATININE RATIO 24 (6-25); CALCIUM 9.3 mg/dL (8.4-10.2); CARBON DIOXIDE 26 mmol/L (22-29); CHLORIDE 104 mmol/L (98-107); CREATINE KINASE 39 IU/L (29-168); CREATININE, SERUM 0.66 mg/dL (0.57-1.11); EST GLOMERULAR FILTRATION RATE > 60 ML/MIN (60-); GLUCOSE 116 mg/dL (74-118); SODIUM 143 mmol/L (136-145)
--- NOTE | 2018-04-02 18:14 | Diagnostic Imaging Report ---
PROCEDURE: A single AP view of the chest. COMPARISON: None. INDICATIONS: COUGH, SHORTNESS OF BREATH FINDINGS: Lines/tubes: None. Lungs: The lungs are well inflated. Patchy airspace opacity in the right lower lung. There is no evidence of pulmonary edema. Pleura: There is no pleural effusion or pneumothorax. Heart and mediastinum: Cardiac silhouette is unremarkable. Pulmonary vasculature is normal. Bones: No acute bony abnormality. IMPRESSION: 1. patchy air space opacity in the right lower lung, which may represent atelectasis or pneumonia, in the appropriate clinical setting Sabino Mann M.D. Dictated by: Sabino Mann M.D. on 04/02/2018 at 18:19 Electronically approved by: Sabino Mann M.D. on 04/02/2018 at 18:19
--- NOTE | 2018-04-02 19:03 | Diagnostic Imaging Report ---
PROCEDURE: CT scan of the chest WITH intravenous contrast, using PE protocol. TECHNIQUE: The chest was scanned utilizing a multidetector helical scanner from the lung apex through the level of the adrenal glands after the IV administration of 75 cc of Isovue 370 with special concentration in the pulmonary arteries. Coronal and sagittal multiplanar reformations were obtained. COMPARISON: None. INDICATIONS: Shortness of breath FINDINGS: Exam limited by breathing motion artifact. Lines/tubes: None. Lungs and Airways: No filling defects in the main, right or left pulmonary arteries or their segmental level to suggest pulmonary embolism. Mild centrilobular emphysematous changes predominantly in the upper lobes. Mild bilateral lower lobe dependent atelectasis. No consolidation, masses, or nodules. Airways are clear, without endobronchial lesions. Pleura: No effusion, or pneumothorax. Heart and mediastinum: Thyroid is unremarkable. Heart size is normal. No pericardial effusion. Aorta is non-aneurysmal. Main pulmonary artery is enlarged, measuring 3.5 cm. Lymph nodes: No mediastinal, hilar, or axillary adenopathy. Abdomen: Limited contrast-enhanced views of the upper abdomen show no abnormality within the visualized liver, pancreas, or kidneys. Moderate pneumobilia, predominantly in the left lobe. Gallbladder is not visualized. Spleen is enlarged, measuring 14.3 cm in AP diameter. The adrenal glands are normal. Soft tissue density encasing the common hepatic artery at the chong hepatis (for example series 2, image 53). Bones: No aggressive lytic lesions. Mild degenerative disc changes in the thoracic spine. Soft tissues are unremarkable. IMPRESSION: 1. Exam limited by breathing motion artifact. No CT evidence of pulmonary embolism. 2. Mild centrilobular emphysematous changes in the upper lobes. No consolidation, masses, or nodules. 3. Enlarged main pulmonary artery suggesting pulmonary hypertension. 4. Indeterminate soft tissue density which encases the common hepatic artery at the chong hepatis. It is unclear whether this arises from the pancreas, as it is only partially visualized. Recommend CT abdomen with pancreas mass protocol for further evaluation in at least 24 hours given that the patient received a full dose of contrast today. 5. Splenomegaly. Sabino Mann M.D. Dictated by: Sabino Mann M.D. on 04/02/2018 at 19:08 Electronically approved by: Sabino Mann M.D. on 04/02/2018 at 19:08
[2018-04-03] MEDS ORDERED: SODIUM CHLORIDE 0.9% 50ML 50 ML ONE (00:37)
[2018-04-03] MEDS ORDERED: IOPAMIDOL 370 MG/ML 200 ML INFUS..BTL INJ ONE (00:37)
== END 2018-04-02 19:20 | disposition left against medical advice (07) ==
LOC: ER 16:52
DX: R06.00 Dyspnea, unspecified (principal); R05 Cough; J44.1 Chronic obstructive pulmonary disease with (acute) exacerbation; J18.9 Pneumonia, unspecified organism; Z87.891 Personal history of nicotine dependence
CPT/HCPCS: 36415; 71045; 71260; 80053; 82550; 82553; 83880; 84484; 85025; 85379; 93005; 94640; 99284

== ENCOUNTER 2018-07-10 08:34 | Emergency (ER) | payer MEDICARE ==
[~2018-07-10] VITALS: Ht 157.5 cm; Wt 73.5 kg
--- OUTSIDE RECORDS SUMMARY | 2018-07-10 08:36 | XMS REPORT | Clinical Summary ---
Author Author [facility] Address Unknown Phone Unavailable Care Team Providers Care Steam Box Operator Name Role Phone PCP Unavailable Allergies Active Allergy Reactions Severity Noted Date Comments Hydromorphone 04/24/2018 Current Medications Prescription Sig. Disp. Refills Start End Date Status Date albuterol HFA (VENTOLIN Inhale 2 puffs by mouth Active HFA) 90 mcg/actuation via inhaler every 6 (six) inhaler hours as needed for Wheezing. albuterol (ACCUNEB) 1.25 Take 1 ampule by Active mg/3 mL nebulizer nebulization 2 (two) solution times daily as needed for Wheezing. aspirin 81 MG EC tablet Take 81 mg by mouth Active daily. baclofen (LIORESAL) 10 MG Take 10 mg by mouth 3 Active tablet (three) times daily. codeine 60 MG tablet Take 60 mg by mouth every Active 6 (six) hours as needed for Pain. LORazepam (ATIVAN) 1 MG Take 1 mg by mouth every Active tablet 8 (eight) hours as needed for Anxiety. temazepam (RESTORIL) 15 Take 15 mg by mouth every Active mg capsule night as needed for Sleep. Active Problems Problem Noted Date Syncope 04/27/2018 Status post placement of implantable loop recorder 04/27/2018 COPD (chronic obstructive pulmonary disease) ([facility]) 04/27/2018 History of loop recorder s/p explant of loop recorder on 04/27/2018 04/27/2018 Pulmonary HTN ([facility]) 04/07/2018 Mixed connective tissue disease ([facility]) 08/21/2017 Chronic pain disorder 02/21/2017 Anxiety 10/31/2016 Chronic respiratory failure with hypoxia and hypercapnia ([facility]) 10/31/2016 Major depressive disorder with single episode, in partial remission ([facility]) 10/31/2016 PVD (peripheral vascular disease) ([facility]) 10/31/2016 Thrombocytopenia ([facility]) 10/31/2016 Tobacco abuse 10/31/2016 Essential hypertension 10/02/2016 Encounters Date Type Specialty Care Team Description 04/27/2018 Hospital Dinorah Ford MD Encounter 04/27/2018 Procedure Pass 04/27/2018 Surgery Dinorah Ford MD SUBCUTANEOUS IMPLANTABLE LOOP RECORDER REMOVAL (EVENT RECORDER) after 07/09/2017 Social History Tobacco Use Types Packs/Day Years Used Date Current Some Day Smoker 0.25 Smokeless Tobacco: Never Used Alcohol Use Drinks/Week oz/Week Comments No Sex Assigned at Date Recorded Not on file Last Filed Vital Signs Vital Sign Reading Time Taken Blood Pressure 143/65 04/27/2018 1:15 PM CDT Pulse 88 04/27/2018 1:15 PM CDT Temperature 36.7 C (98.1 F) 04/27/2018 7:31 AM CDT Respiratory Rate 18 04/27/2018 1:15 PM CDT Oxygen Saturation 93% 04/27/2018 12:00 PM CDT Inhaled Oxygen - - Concentration Weight - - Height - - Body Mass Index - - Plan of Treatment Not on file Procedures Procedure Name Priority Date/Time Associated Diagnosis Comments SUBCUTANEOUS IMPLANTABLE 04/27/2018 Syncope, unspecified LOOP RECORDER REMOVAL 2:12 PM CDT syncope type (EVENT RECORDER) Case Notes [id number] after 07/09/2017 Results * EKG-SCANNED (04/28/2018 12:50 PM) * CARDIAC CATH REPORT - SCAN (04/28/2018 12:50 PM) after 07/09/2017
== END 2018-07-10 09:05 | disposition left against medical advice (07) ==
LOC: ER 08:34
DX: R55 Syncope and collapse (principal); S00.83XA Contusion of other part of head, initial encounter; W18.39XA Other fall on same level, initial encounter; Z87.891 Personal history of nicotine dependence
CPT/HCPCS: 99281

== ENCOUNTER 2020-08-03 13:52 | Inpatient (IN) | payer MEDICARE, OTHER ==
[~2020-08-03] VITALS: Ht 162.6 cm; Wt 73.5 kg
[2020-08-03] MEDS ORDERED: METHYLPREDNISOLONE SOD SUCC 40 MG/ML VIAL 1ML IV ONE (14:00)
[2020-08-03] MEDS ORDERED: ALBUTEROL SULF 0.083% NEB SOLN 3 ML NEB NEB STA (14:00)
--- NOTE | 2020-08-03 14:00 | Emergency Department Note ---
History of Present Illnes History of Present Illness History of Present Illness This is a 69 year old female past medical history significant for COPD presents to the emergency department for shortness of breath. She is seen with Dr. Negron earlier today instructed to come to be directly admitted. She presents to emergency department as respiratory distress. No other symptoms this time. Symptoms were ongoing for 3 days. Wax Blender Required: No Onset (how long ago): day(s) (3) Location: Chest Quality: SoB Radiation: Reports non-radiation Severity: severe Onset quality: gradual Duration (how long): day(s) (3) Timing of current episode: constant Progression: worsening Chronicity: recurrent Context: Denies recent illness, Denies recent surgery Relieving factors: none Exacerbating factors: none Associated symptoms: Reports denies other symptoms Treatments prior to arrival: none Past Medical/Family History Physician Review I have reviewed the patient's past medical and family history. Any updates have been documented here. Past Medical History Past Medical History: Hypertension, COPD Other Medical History: +SMOKER OXYGEN PRN AT HOME ARTHRITIS ANXIETY Past Surgical History: Hysterectomy, T&A Other Surgery: RT KNEE REPLACEMENT BACK SURGERY X 3 INTESTINAL SURGERY Other Last Tetanus: UTD Review of Systems Review of Systems Constitutional: Reports no symptoms EENTM: Reports no symptoms Cardiovascular: Reports no symptoms Respiratory: Reports as per HPI, Reports dyspnea Gastrointestinal: Reports no symptoms Genitourinary: Reports no symptoms Musculoskeletal: Reports no symptoms Integumentary: Reports no symptoms Neurological: Reports no symptoms Psychological: Reports no symptoms Endocrine: Reports no symptoms Hematological/Lymphatic: Reports no symptoms Physical Exam Related Data Allergies: Coded Allergies: hydromorphone (Verified Allergy, Severe, 07/10/18) SOB/ANAPHALAXSIS Vital signs reviewed: Yes Physical Exam CONSTITUTIONAL Constitutional: Present well-developed, Present well-nourished HENT HENT: Present normocephalic, Present atraumatic, Present oropharynx clear/moist, Present nose normal HENT L/R: Present left ext ear normal, Present right ext ear normal EYES Eyes: Reports PERRL, Reports conjunctivae normal NECK Neck: Present ROM normal PULMONARY Pulmonary: Present respiratory distress; Absent effort normal, Absent breath sounds normal (Diffuse wheezes and decresaed breath sounds) CARDIOVASCULAR Cardiovascular: Present regular rhythm, Present heart sounds normal, Present capillary refill normal, Present normal rate GASTROINTESTINAL Abdominal: Present soft, Present nontender, Present bowel sounds normal GENITOURINARY Genitourinary: Present exam deferred SKIN Skin: Present warm, Present dry MUSCULOSKELETAL Musculoskeletal: Present ROM normal NEUROLOGICAL Neurological: Present alert, Present oriented x 3, Present no gross motor or sensory deficits PSYCHOLOGICAL Psychological: Present mood/affect normal, Present judgement normal Assessment & Plan Medical Decision Making MDM 69-year-old female presents for COPD exacerbation. Patient will be admitted to Dr. Sandoval with Dr. Miller on board. She was given ureteral nebulizers, Solu-Med rol in the emergency department. Assessment & Plan Final Impression: (1) COPD exacerbation Depart Disposition: ADMITTED Home Meds Reported Medications Aspirin (ASPIRIN) 81 Mg Tab.chew, 81 MG PO DAILY 02/24/18 Codeine Sulfate (CODEINE SULFATE) 30 Mg Tab, 60 MG PO TID, #30 TAB 02/24/18 Albuterol Sulf* (PROAIR HFA INHALER*) 8.5 Gm Inh, INH PRN 02/24/18 Lorazepam (LORAZEPAM) 1 Mg Tablet, 1 MG PO TID, TAB 02/24/18 Baclofen (BACLOFEN) 10 Mg Tablet, 10 MG PO TID, #90 TAB 02/24/18 Temazepam (TEMAZEPAM) 15 Mg Capsule, 15 MG PO HS 02/24/18 FREDDIE VELASQUEZ MD Aug 03, 2020 14:00
--- OUTSIDE RECORDS SUMMARY | 2020-08-03 14:02 | XMS REPORT | Continuity of Care Document ---
Author Author [facility] Organization [facility] t Address [address] [place] [address] Phone Unavailable Care Team Providers Care Aircraft Engineer Name Role Phone NONSTAFF PCP Unavailable Karri KOEHLER Attphys Unavailable Del KEANE Attphys Unavailable Germania CANTU Attphyjoanna Unavailable Payers Payer Name Policy Type Policy Number Effective Date Expiration Date Joanna Gamingsey Care Medicare Advantage [id number] 2016 00:0 0:00 [facility] Problems Condition Name Condition Details Condition Category Status Onset Date Resolution Date Last Treatment Date Treating Clinician Comments Source Senile purpura Senile Purpura Problem Active 2020-03-23 00:00:00 [facility] Major depressive disorder Major Depressive Disorder Problem Ac tive 2020-03-23 00:00:00 [facility] Hypertensive disorder Hypertensive Disorder Problem Active 00:00:00 [facility] ractice Insomnia Insomnia Problem Active 2020-03-14 00:00:00 [facility] Tobacco user Tobacco User Problem Active 2019-11-29 00:00:00 [facility] Chronic pain syndrome Chronic Pain Syndrome Problem Active 202 00:00:00 [facility] ractice Esotropia Esotropia Problem Active 2019-11-29 00:00:00 [facility] Severe chronic obstructive pulmonary disease Severe Ch ronic Obstructive Pulmonary Disease Problem Active 2019-11-29 00:00:00 [facility] Eosinophilic asthma Eosinophilic Asthma Problem Active 2019-11-29 00:00 :00 [facility] Multiple nodules of lung Multiple Nodules of Lung Problem Acti ve 2019-11-29 00:00:00 [facility] Syncope Syncope Disease Active 2018-04-27 00:00:00 [facility] Status post placement of implantable loop recorder Sta tus post placement of implantable loop recorder Disease Active 2018-04-27 00:00:00 [facility] COPD (chronic obstructive pulmonary disease) COPD (chr onic obstructive pulmonary disease) Disease Active 2018-04-27 00:00:00 [facility] History of loop recorder s/p explant of loop recorder on 04/27/2018 History of loop recorder s/p explant of loop recorder on 04/27/2018 Disease Acti ve 2018-04-27 00:00:00 [facility] Pulmonary HTN Pulmonary HTN Disease Active 2018-04-07 00:00:00 [facility] Mixed connective tissue disease Mixed connective tissue disease Dis ease Active 2017-08-21 00:00:00 [facility] Chronic pain disorder Chronic pain disorder Disease Active 201 03-20-09 00:00:00 [facility] Anxiety Anxiety Disease Active 2016-10-31 00:00:00 [facility] Chronic respiratory failure with hypoxia and hypercapn ia Chronic respiratory failure with hypoxia and hypercapnia Disease Active 2016-10-31 00:00:00 [facility] Major depressive disorder with single episode, in part ial remission Major depressive disorder with single episode, in partial remission Disease Active 2016-10-31 00:00:00 [facility] PVD (peripheral vascular disease) PVD (peripheral vascular disea se) Disease Active 2016-10-31 00:00:00 [facility] Thrombocytopenia Thrombocytopenia Disease Active 2016-10-31 00:00:00 [facility] Tobacco abuse Tobacco abuse Disease Active 2016-10-31 00:00:00 [facility] Essential hypertension Essential hypertension Disease Active 2016-10-02 00:00:00 [facility] Obstructive chronic bronchitis with exacerbation COPD exacerbati on Problem Active [facility] Chest pain Chest pain Problem Active [facility] Allergies, Adverse Reactions, Alerts Allergy Name Allergy Type Status Severity Reaction(s) Onset Date Inacti ve Date Treating Clinician Comments Source Hydromorphone Allergy to substance Active 2018-04-24 00:00: 00 [facility] Hydromorphone Propensity to adverse reactions Active 02-05-10 00:00:00 [facility] Harrison smith Hydromorphone Allergy to substance Active 2018-02-23 00:00: 00 [facility] DELALUTIN Allergy to substance Active Fatal Other [facility] Social History Social Habit Start Date Stop Date Quantity Comments Source Sex Assigned At [facility] Cigarettes smoked current (pack per day) - Reported 00:00:00 2018-04-28 00:00:00 [facility] Tobacco use and exposure 2018-04-28 00:00:00 2018-04-28 00:00:00 Neve r used [facility] Alcohol intake 2018-04-28 00:00:00 2018-04-28 00:00:00 Current non-drinker of alcohol (finding) [facility] Harrison smith Smoking Status Start Date Stop Date Source Former Smoker [facility] Current some day smoker 2018-04-28 00:00:00 [facility] Medications Ordered Medication Name Filled Medication Name Start Date Stop Da te Current Medication? Ordering Clinician Indication Dosage Frequency Signature (SIG) Comments Components Source albuterol HFA (VENTOLIN HFA) 90 mcg/actuation inhaler 2018-04-27 13:40:47 Yes 2{puff} Inhale 2 puffs by mouth via inhaler every 6 (six) hours as needed for Wheezing. [facility] albuterol (ACCUNEB) 1.25 mg/3 mL nebulizer solution 04-27 13:40:47 Yes 1{ampule} Take 1 ampule by nebulization 2 (two) times daily as needed for Wheezing. [facility] aspirin 81 MG EC tablet 2018-04-27 13:40:47 Yes 81mg QD Take 81 mg by mouth daily. [facility] baclofen (LIORESAL) 10 MG tablet 2018-04-27 13:40:47 Yes 10mg Q.[id number] Take 10 mg by mouth 3 (three) times daily. [facility] codeine 60 MG tablet 2018-04-27 13:40:47 Yes 60mg Take 60 mg by mouth every 6 (six) hours as needed for Pain. [facility] LORazepam (ATIVAN) 1 MG tablet 2018-04-27 13:40:47 Yes 1mg Take 1 mg by mouth every 8 (eight) hours as needed for Anxiety. [facility] temazepam (RESTORIL) 15 mg capsule 2018-04-27 13:40:47 Yes 15mg Take 15 mg by mouth every night as needed for Sleep. [facility] albuterol sulfate 1.25 mg/3 mL solution for nebulization Inhale 3 mL 4 times a day by inhalation route. albuterol sulfate 1.25 mg/3 mL solution for nebulization Inhale 3 mL 4 times a day by inhalation route. No albuterol sulfate 1.25 mg/3 mL solution for nebulization Inhale 3 mL 4 times a day by inhalation route. [facility] albuterol sulfate HFA 90 mcg/actuation a erosol inhaler INHALE 2 PUFFS BY MOUTH EVERY 4 HOURS NEEDED albuterol sulfate HFA 90 mcg/actuation a erosol inhaler INHALE 2 PUFFS BY MOUTH EVERY 4 HOURS NEEDED No albuterol sulfate HFA 90 mcg/actuation aerosol inhaler INHALE 2 PUFFS BY MOUTH EVERY 4 HOURS NEEDED [facility] ice amlodipine 5 mg tablet Take 1 tablet every day by oral route. amlodipine 5 mg tablet Take 1 tablet every day by oral route. No 1 Q1D amlodipine 5 mg tablet Take 1 tablet every day by oral route. [facility] loratadine 10 mg tablet Take 1 tablet every day by ora l route. loratadine 10 mg tablet Take 1 tablet every day by oral route. No 1 Q1D loratadine 10 mg tablet Take 1 tablet every day by oral route. [facility] losartan 100 mg tablet TAKE 1 TABLET BY MOUTH EVERY DA Y losartan 100 mg tablet TAKE 1 TABLET BY MOUTH EVERY DAY No losartan 100 mg tablet TAKE 1 TABLET BY MOUTH EVERY DAY [facility] methocarbamol 750 mg tablet TAKE 1 TABLET BY MOUTH THR EE TIMES A DAY NEEDED methocarbamol 750 mg tablet TAKE 1 TABLET BY MOUTH THREE TIMES A DAY NEEDED No methocarba mol 750 mg tablet TAKE 1 TABLET BY MOUTH THREE TIMES A DAY NEEDED [facility] ice temazepam 15 mg capsule TAKE 1 CAPSULE BY MOUTH TWICE DAILY NEEDED temazepam 15 mg capsule TAKE 1 CAPSULE BY MOUTH TWICE DAILY NEEDED No temazepam 15 mg capsule TAKE 1 CAPSULE BY MOUTH TWICE DAILY NEEDED [facility] Albuterol Sulfate (Proair Hfa Inhaler*) 8.5 Gm Inh Alb uterol Sulfate (Proair Hfa Inhaler*) 8.5 Gm Inh Yes As Needed [facility] Aspirin 81 Mg Tab.chew Aspirin 81 Mg Tab.chew Yes 81 Daily [facility] Baclofen 10 Mg Tablet Baclofen 10 Mg Tablet Yes 10 Three Times A Day [facility] Codeine Sulfate 30 Mg Tab Codeine Sulfate 30 Mg Tab Yes 60 Three Times A Day [facility] Lorazepam 1 Mg Tablet Lorazepam 1 Mg Tablet Yes 1 Three Times A Day [facility] Temazepam 15 Mg Capsule Temazepam 15 Mg Capsule Yes 15 Bedtime [facility] Vital Signs Vital Name Observation Time Observation Value Comments Source BP Diastolic 2020-07-11 00:00:00 69 mm[Hg] [facility] Height 2020-07-11 00:00:00 62 [in_i] [facility] BMI (Body Mass Index) 2020-07-11 00:00:00 27.8 kg/m2 [facility] BP Systolic 2020-07-11 00:00:00 133 mm[Hg] [facility] Body Weight 2020-07-11 00:00:00 152 [lb_av] [facility] BP Diastolic 2020-06-13 00:00:00 89 mm[Hg] [facility] Height 2020-06-13 00:00:00 62 [in_i] [facility] BMI (Body Mass Index) 2020-06-13 00:00:00 28.3 kg/m2 [facility] BP Systolic 2020-06-13 00:00:00 165 mm[Hg] [facility] Body Weight 2020-06-13 00:00:00 155 [lb_av] [facility] BP Diastolic 2020-03-30 00:00:00 89 mm[Hg] [facility] Height 2020-03-30 00:00:00 62 [in_i] [facility] BMI (Body Mass Index) 2020-03-30 00:00:00 29.6 kg/m2 [facility] BP Systolic 2020-03-30 00:00:00 150 mm[Hg] [facility] Body Weight 2020-03-30 00:00:00 162 [lb_av] [facility] BP Diastolic 2020-03-23 00:00:00 108 mm[Hg] [facility] Height 2020-03-23 00:00:00 62 [in_i] [facility] BMI (Body Mass Index) 2020-03-23 00:00:00 29.6 kg/m2 [facility] BP Systolic 2020-03-23 00:00:00 180 mm[Hg] [facility] Body Weight 2020-03-23 00:00:00 162 [lb_av] [facility] BP Diastolic 2019-11-16 00:00:00 105 mm[Hg] [facility] Height 2019-11-16 00:00:00 62 [in_i] [facility] BMI (Body Mass Index) 2019-11-16 00:00:00 28.7 kg/m2 [facility] BP Systolic 2019-11-16 00:00:00 184 mm[Hg] [facility] Body Weight 2019-11-16 00:00:00 157 [lb_av] [facility] BP Diastolic 2019-10-25 00:00:00 93 mm[Hg] [facility] Height 2019-10-25 00:00:00 62 [in_i] [facility] BMI (Body Mass Index) 2019-10-25 00:00:00 28.2 kg/m2 [facility] BP Systolic 2019-10-25 00:00:00 165 mm[Hg] [facility] Body Weight 2019-10-25 00:00:00 154 [lb_av] [facility] Procedures Procedure Date / Time Performed Performing Clinician [facility] e Eye Surgery Procedure 2020-05-22 00:00:00 [facility] Eye Surgery 2018-09-15 00:00:00 [facility] Gastrointestinal Surgery 2018-09-15 00:00:00 Eric hansone [facility] Computed tomography of chest with contrast 2018-04-02 00:00: 00 CRISTAL KOEHLER V [facility] Computed tomography of brain without radiopaque contrast 201 04-20-11 00:00:00 TANIKA KEANE [facility] Computed tomography of cervical spine without contrast 02-23 00:00:00 TANIKA KEANE [facility] IMPLANT PAT-ACTIVE HT RECORD 2018-02-23 00:00:00 TASHA RESENDEZ [facility] Cholecystectomy (Gall Bladder Removal) 2013-09-15 00:00:00 [facility] Orthopedic Surgery 2009-09-15 00:00:00 [facility] Hysterectomy (Total) 1989-09-15 00:00:00 [facility] Cholecystectomy (Gall Bladder Removal) 1987-09-15 00:00:00 [facility] Other 1987-09-15 00:00:00 [facility] Other 1986-09-15 00:00:00 [facility] Plan of Care Planned Activity Planned Date Details Comments Source Future Scheduled Test 2020-05-16 00:00:00 INFLUENZA VACCINE (#1) [code = INFLUENZA VACCINE (#1)] [facility] Future Scheduled Test 2017-09-16 00:00:00 MEDICARE ANNUAL WE LLNESS (YEAR 2 or FIRST YEAR if no IPPE) [code = MEDICARE ANNUAL WELLNESS (YEAR 2 or FIRST YEAR if no IPPE)] [facility] Future Scheduled Test 2016 00:00:00 PNEUMOCOCCAL 65+ Y RS (2 of 2 - PPSV23) [code = PNEUMOCOCCAL 65+ YRS (2 of 2 - PPSV23)] [facility] Future Scheduled Test 1950 00:00:00 Screening for nolan gnant neoplasm of breast (procedure) [code = 242743239] [facility] 1950 00:00:00 Screening for nolan gnant neoplasm of colon (procedure) [code = 952923812] [facility] dical [place] Instructions [facility] Encounters Start Date/Time End Date/Time Encounter Type Admission Type [facility] Facility Care Department Encounter ID Source 2020-07-11 00:00:00 2020-07-11 00:00:00 Mario Lester , DO: [address], [address], [place] [address], Ph. [facility] [place] - [facility] - FREDDY_STEVE_Elke (SHANIG) [id number] [facility] 2020-06-13 00:00:00 2020-06-13 00:00:00 Mario Lester , DO: [address] [address], Ph. [facility] - VM_HOU_[place] (WAG) [id number] [facility] 2020-06-12 00:00:00 2020-06-12 00:00:00 Perlita Sharp: [address], [address], [place] [address], Ph. [facility] - VM_HOU_Care Management [id number] [facility] 2020-03-30 00:00:00 2020-03-30 00:00:00 Mario Lester , DO: [address], [address], [place] [address], Ph. [facility] - VM_HOU_N. Ihsan ([facility]) [id number] [facility] 2020-03-23 00:00:00 2020-03-23 00:00:00 Mario Lester , DO: [address], [address], [place] [address], Ph. [facility] - VM_HOU_N. [place]hs[place] ([facility]) [id number] [facility] 2020-02-11 00:00:00 2020-02-11 00:00:00 Mario Lester , DO: [address], [address], [place] [address], Ph. [facility] - VM_HOU_Care Management [id number] [facility] y Practice 2019-12-10 00:00:00 2019-12-10 00:00:00 Mario Lester , DO: [address], [address], [place] [address], Ph. [facility] - VM_HOU_N. Ihsan ([facility]) [id number] [facility] 2019-11-16 00:00:00 2019-11-16 00:00:00 Mario Lester , DO: [address] , [address], [place] [address], Ph. [facility] VM_HOU_N. [place] (WAG) [id number] [facility] 2019-10-25 00:00:00 2019-10-25 00:00:00 Mario Lester , DO: [address] , [address], [place] [address], Ph. [facility] VM_HOU_N. [place] (WAG) [id number] [facility] 2018-04-02 16:52:00 2018-04-02 19:20:00 Departed Emergency Room 1 CRISTAL KOEHLER [facility] [id number] [facility] 2018-02-23 21:09:00 2018-02-24 17:37:00 Discharged Inpatient (obs) 1 TANIKA KEANE [facility] [id number] [facility] 2017-11-17 15:43:00 2017-11-17 20:02:00 Departed Emergency Room ER LEANNMANUELVLAD [facility] [id number] [facility] 2017-11-14 16:47:00 2017-11-14 20:34:00 Departed Emergency Room [facility] [id number] [facility] Results Test Description Test Time Test Comments Results Result Comments Source CT CHEST W 2018-04-02 19:08:00 [place] [address] Patient Name: NILSON FORTE MR #: [id number] : 1950 Age/Sex: 67/F Req #: [id number] Adm Physician: Ordered by: CRISTAL KOEHLER MD Report #: [id number] Location: ER Room/Bed: Procedure: [id number] CT/CT CHEST W Exam Date: 04/02/18 Exam Time: 1840 REPORT STATUS: Signed PROCEDURE: CT scan of the chest WITH intravenous contrast, using PE protocol. TECHNIQUE: The chest was scanned utilizing a multidetector helical scanner from the lung apex through the level of the adrenal glands after the IV administration of 75 cc of Isovue 370 with special concentration in the pulmonary arteries. Coronal and sagittal multiplanar reformations were obtained. COMPARISON: None. INDICATIONS: Shortness of breath FINDINGS: Exam limited by breathing motion artifact. Lines/tubes: None. Lungs and Airways: No filling defects in the main, right or left pulmonary arteries or their segmental level to suggest pulmonary embolism. Mild centrilobular emphysematous changes predominantly in the upper lobes. Mild bilateral lower lobe dependent atelectasis. No consolidation, masses, or nodules. Airways are clear, without endobronchial lesions. Pleura: No effusion, or pneumothorax. Heart and mediastinum: Thyroid is unremarkable. Heart size is normal. No pericardial effusion. Aorta is non-aneurysmal. Main pulmonary artery is enlarged, measuring 3.5 cm. Lymph nodes: No mediastinal, hilar, or axillary adenopathy. Abdomen: Limited contrast-enhanced views of the upper abdomen show no abnormality within the visualized liver, pancreas, or kidneys. Moderate pneumobilia, predominantly in the left lobe. Gallbladder is not visualized. Spleen is enlarged, measuring 14.3 cm in AP diameter. The adrenal glands are normal. Soft tissue density encasing the common hepatic artery at the chong hepatis (for example series 2, image 53). Bones: No aggressive lytic lesions. Mild degenerative disc changes in the thoracic spine. Soft tissues are unremarkable. IMPRESSION: 1. Exam limited by breathing motion artifact. No CT evidence of pulmonary embolism. 2. Mild centrilobular emphysematous changes in the upper lobes. No consolidation, masses, or nodules. 3. Enlarged main pulmonary artery suggesting pulmonary hypertension. 4. Indeterminate soft tissue density which encases the common hepatic artery at the chong hepatis. It is unclear whether this arises from the pancreas, as it is only partially visualized. Recommend CT abdomen with pancreas mass protocol for further evaluation in at least 24 hours given that the patient received a full dose of contrast today. 5. Splenomegaly. Sabino Durand M.D. Dictated by: Sabino Durand M.D. on 04/02/2018 at 19:08 Electronically approved by: Sabino Durand M.D. on 04/02/2018 at 19:08 Dictated By: SABINO DURAND MD 07 Transcribed By: DINORA on 04/02/181907 COPY TO: CRISTAL KOEHLER MD CHEST SINGLE (PORTABLE) 2018-04-02 18:19:00 [place] [address] Patient Name: NILSON FORTE MR #: [id number] : 1950 Age/Sex: 67/F Req #: [id number] Adm Physician: Ordered by: CRISTAL KOEHLER MD Report #: [id number] Location: ER Room/Bed: Procedure: [id number] DX/CHEST SINGLE (PORTABLE) Exam Date: 04/02/18 Exam Time: 1800 REPORT STATUS: Signed PROCEDURE: A single AP view of the chest. COMPARISON: None. INDICATIONS: COUGH, SHORTNESS OF BREATH FINDINGS: Lines/tubes: None. Lungs: The lungs are well inflated. Patchy airspace opacity in the right lower lung. There is no evidence of pulmonary edema. Pleura: There is no pleural effusion or pneumothorax. Heart and mediastinum: Cardiac silhouette is unremarkable. Pulmonary vasculature is normal. Bones: No acute bony abnormality. IMPRESSION: 1. patchy air space opacity in the right lower lung, which may represent atelectasis or pneumonia, in the appropriate clinical setting Sabino Durand M.D. Dictated by: Sabino Durand M.D. on 04/02/2018 at 18:19 Electronically approved by: Sabino Durand M.D. on 04/02/2018 at 18:19 Dictated By: SABINO DURNAD MD 18 Transcribed By: DINORA on 04/02/181818 COPY TO: CRISTAL KOEHLER MD Creatine Kinase MB 2018-04-02 18:05:00 Test Item Creatine Kinase MB (test code = 55179-3) 2.10 0-5.0 [facility] [id number] 18:05:00* Test Item Value Reference Range Interpretation Comments Troponin I (test code = TWY8065) 0.015 0-0.300 [facility] Natriuretic [id number] 18:01:00* Test Item Value Reference Range Interpretation Comments B-Type Natriuretic Peptide (test code = 59009-3) 84.5 0-100 [facility] [id number] 17:56:00* Test Item Value Reference Range Interpretation Comments Sodium Level (test code = 2951-2) 143 136-145 [facility] Hxgln5820-20-57 17:56:00* Test Item Value Reference Range Interpretation Comments Potassium Level (test code = 2823-3) 4.0 3.5-5.1 [facility] CenterCh[facility]ide [id number] 17:56:00* Test Item Value Reference Range Interpretation Comments Chloride Level (test code = 2075-0) 104 98-107 [facility] CenterCar[facility] Dioxide [id number] 17:56:00* Test Item Value Reference Range Interpretation Comments Carbon Dioxide Level (test code = 2028-9) 26 - [facility] CenterAnion Swb1650-64-30 17:56:00* Test Item Value Reference Range Interpretation Comments Anion Gap (test code = 36599-3) 17.0 8-16 H [facility] Center[facility] Urea [id number] 17:56:00* Test Item Value Reference Range Interpretation Comments Blood Urea Nitrogen (test code = 3094-0) 16 7-26 [facility] Center[facility]inine2018-07-19 17:56:00* Test Item Value Reference Range Interpretation Comments Creatinine (test code = 2160-0) 0.66 0.57-1.11 [facility] Center[facility]UN/Creatinine Eleft6035-84-68 17:56:00* Test Item Value Reference Range Interpretation Comments BUN/Creatinine Ratio (test code = 3097-3) 24 6- [facility] Center[facility]at Glomerular Filtration Rate 2018-04-02 17:56:00* Test Item Value Reference Range Interpretation Comments Estimat Glomerular Filtration Rate (test code = 09977-0) 60- >60 Ranges were taken from the National Kidney Disease Education Program and the [facility] literature.Reference ranges:60 or greater: Vhttez49-05 ( for 3 consecutive months): Chronic kidney disease 15 or less: Kidney failureChildress Regional Medical CenterGlucose Cutum2468-19-89 17:56:00* Test Item Value Reference Range Interpretation Comments Glucose Level (test code = GJJ8606) 116 74-118 [facility] CenterCalcium Ejcug6754-45-83 17:56:00* Test Item Value Reference Range Interpretation Comments Calcium Level (test code = 10532-9) 9.3 8.4-10.2 [facility] CenterTotal Piyjeirzg1160-73-59 17:56:00* Test Item Value Reference Range Interpretation Comments Total Bilirubin (test code = 1975-2) 2.0 0.2-1.2 [facility] CenterAspartate Amino Transf (AST/SGOT) 2018-04-02 17:56:00* Test Item Value Reference Range Interpretation Comments Aspartate Amino Transf (AST/SGOT) (test code = Aspartate Amino Transf (AST/SGOT)) 44 5-34 H [facility] CenterAlanine Aminotransferase (ALT/SGPT) 2018-04-02 17:56:00* Test Item Value Reference Range Interpretation Comments Alanine Aminotransferase (ALT/SGPT) (test code = 1742-6) 24 0-55 [facility] CenterTotal Cbeduxe2899-64-15 17:56:00* Test Item Value Reference Range Interpretation Comments Total Protein (test code = 2885-2) 6.9 6.5-8.1 [facility] CenterAlbumin2018-07-19 17:56:00* Test Item Value Reference Range Interpretation Comments Albumin (test code = 1751-7) 3.7 3.5-5.0 [facility] CenterGlobulin2018-07-19 17:56:00* Test Item Value Reference Range Interpretation Comments Globulin (test code = 92402-7) 3.2 2.3-3.5 [facility] CenterAlbumin/Globulin Gcyvh1448-10-77 17:56:00 * Test Item Value Reference Range Interpretation Comments Albumin/Globulin Ratio (test code = 1759-0) 1.2 0.8-2.0 [facility] CenterAlkaline Flnulfmrvxn2010-01-33 17:56:00* Test Item Value Reference Range Interpretation Comments Alkaline Phosphatase (test code = 6768-6) 180 40-150 H [facility] CenterCreatine Ujubbu7211-25-73 17:56:00* Test Item Value Reference Range Interpretation Comments Creatine Kinase (test code = 2157-6) 39 29-168 [facility] CenterD-Dimer Quantitative (PE/DVT)2018-04-02 17:48:00* Test Item Value Reference Range Interpretation Comments D-Dimer Quantitative (PE/DVT) (test code = 97753-3) 1.66 0. 00-0.45 H As with all in vitro diagnostic tests, the test results should be interpreted by the physician in conjunction with clinical findings and other test results.Test results are reported in NEW D-dimer units(ug/mLFEU).[facility] CenterWhite Blood Waynr1930-22-43 17:36:00* Test Item Value Reference Range Interpretation Comments White Blood Count (test code = 6690-2) 6.53 4.8-10.8 [facility] CenterRed Blood Myuay2223-19-10 17:36:00* Test Item Value Reference Range Interpretation Comments Red Blood Count (test code = 789-8) 5.21 3.6-5.1 H [facility] CenterHemoglobin2018-07-19 17:36:00* Test Item Value Reference Range Interpretation Comments Hemoglobin (test code = 28423-7) 15.2 12.0-16.0 [facility] CenterHematocrit2018-07-19 17:36:00* Test Item Value Reference Range Interpretation Comments Hematocrit (test code = 4544-3) 43.2 34.2-44.1 [facility] CenterMean Corpuscular Ptgmuq5100-81-32 17:36:00* Test Item Value Reference Range Interpretation Comments Mean Corpuscular Volume (test code = 787-2) 82.9 81-99 [facility] CenterMean Corpuscular Bmefqyxths3933-59-81 17:36:00* Test Item Value Reference Range Interpretation Comments Mean Corpuscular Hemoglobin (test code = 785-6) 29.2 28-32 [facility] CenterMean Corpuscular Hemoglobin Concent 2018-04-02 17:36:00* Test Item Value Reference Range Interpretation Comments Mean Corpuscular Hemoglobin Concent (test code = 786-4) 35.2 31-35 H [facility] CenterRed Cell Distribution Umnqf3727-39-88 17:36:00* Test Item Value Reference Range Interpretation Comments Red Cell Distribution Width (test code = 21093-1) 15.9 11.7 -14.4 H [facility] CenterPlatelet Qnnkm5767-68-32 17:36:00* Test Item Value Reference Range Interpretation Comments Platelet Count (test code = 777-3) 101 140-360 L [facility] CenterNeutrophils (%) (Auto)2018-04-02 17:36:00 * Test Item Value Reference Range Interpretation Comments Neutrophils (%) (Auto) (test code = 08136-7) 53.9 38.7-80.0 [facility] CenterLymphocytes (%) (Auto)2018-04-02 17:36:00 * Test Item Value Reference Range Interpretation Comments Lymphocytes (%) (Auto) (test code = 736-9) 28.0 18.0-39.1 [facility] CenterMonocytes (%) (Auto)2018-04-02 17:36:00* Test Item Value Reference Range Interpretation Comments Monocytes (%) (Auto) (test code = 5905-5) 7.4 4.4-11.3 [facility] CenterEosinophils (%) (Auto)2018-04-02 17:36:00 * Test Item Value Reference Range Interpretation Comments Eosinophils (%) (Auto) (test code = 713-8) 9.6 0.0-6.0 H [facility] CenterBasophils (%) (Auto)2018-04-02 17:36:00* Test Item Value Reference Range Interpretation Comments Basophils (%) (Auto) (test code = 706-2) 0.9 0.0-1.0 [facility] CenterIM GRANULOCYTES %2018-04-02 17:36:00* Test Item Value Reference Range Interpretation Comments IM GRANULOCYTES % (test code = IM GRANULOCYTES %) 0.2 0.0- 1.0 [facility] CenterNeutrophils # (Auto)2018-04-02 17:36:00* Test Item Value Reference Range Interpretation Comments Neutrophils # (Auto) (test code = 751-8) 3.5 2.1-6.9 [facility] CenterLymphocytes # (Auto)2018-04-02 17:36:00* Test Item Value Reference Range Interpretation Comments Lymphocytes # (Auto) (test code = 24177-5) 1.8 1.0-3.2 [facility] CenterMonocytes # (Auto)2018-04-02 17:36:00* Test Item Value Reference Range Interpretation Comments Monocytes # (Auto) (test code = 742-7) 0.5 0.2-0.8 [facility] CenterEosinophils # (Auto)2018-04-02 17:36:00* Test Item Value Reference Range Interpretation Comments Eosinophils # (Auto) (test code = 711-2) 0.6 0.0-0.4 H [facility] CenterBasophils # (Auto)2018-04-02 17:36:00* Test Item Value Reference Range Interpretation Comments Basophils # (Auto) (test code = 704-7) 0.1 0.0-0.1 [facility] CenterAbsolute Immature Granulocyte (auto 2018-04-02 17:36:00* Test Item Value Reference Range Interpretation Comments Absolute Immature Granulocyte (auto (briseyda t code = Absolute Immature Granulocyte (auto) 0.01 0-0.1 [facility] CenterFree Thyroxine Xttar3026-20-88 06:25:00* Test Item Value Reference Range Interpretation Comments Free Thyroxine Index (test code = 48905-7) 2.1305 1.4-3.8 [facility] CenterThyroxine (T4)2018-02-24 06:25:00* Test Item Value Reference Range Interpretation Comments Thyroxine (T4) (test code = 3026-2) 7.81 4.5-10.9 Our current method for Total T4 is not recommended for use as the only marker fo r evaluating patients for thyroid disorders.[facility] CenterTriiodothyronine (T3) Qhnccp7763-04-75 06:25:00* Test Item Value Reference Range Interpretation Comments Triiodothyronine (T3) Uptake (test code = 3050-2) 27.28 22.5 -37.0 [facility] CenterThyroid Stimulating Hormone (TSH) 2018-02-24 06:25:00* Test Item Value Reference Range Interpretation Comments Thyroid Stimulating Hormone (TSH) (test code = 51414-4) 0.203 0.350-4.940 L [facility] CenterFree Thyroxine Bisuw4642-00-89 06:25:00* Test Item Value Reference Range Interpretation Comments Free Thyroxine Index (test code = 05354-8) 2.1305 1.4-3.8 [facility] CenterThyroxine (T4)2018-02-24 06:25:00* Test Item Value Reference Range Interpretation Comments Thyroxine (T4) (test code = 3026-2) 7.81 4.5-10.9 Our current method for Total T4 is not recommended for use as the only marker fo r evaluating patients for thyroid disorders.[facility] CenterTriiodothyronine (T3) Hirrez9936-61-17 06:25:00* Test Item Value Reference Range Interpretation Comments Triiodothyronine (T3) Uptake (test code = 3050-2) 27.28 22.5 -37.0 [facility] CenterThyroid Stimulating Hormone (TSH) 2018-02-24 06:25:00* Test Item Value Reference Range Interpretation Comments Thyroid Stimulating Hormone (TSH) (test code = 10479-0) 0.203 0.350-4.940 L [facility] CenterWhite Blood Sehzr0495-50-24 06:09:00* Test Item Value Reference Range Interpretation Comments White Blood Count (test code = 6690-2) 2.05 4.8-10.8 L [facility] CenterRed Blood Gbgju1242-33-09 06:09:00* Test Item Value Reference Range Interpretation Comments Red Blood Count (test code = 789-8) 4.29 3.6-5.1 [facility] CenterHemoglobin2018-06-12 06:09:00* Test Item Value Reference Range Interpretation Comments Hemoglobin (test code = 82855-3) 12.8 12.0-16.0 Results called to TINA SINGHRN at 0609 on 02/24/18 by Renaldo Wills. RB [place]. [facility] CenterHematocrit2018-06-12 06:09:00* Test Item Value Reference Range Interpretation Comments Hematocrit (test code = 4544-3) 35.8 34.2-44.1 [facility] CenterMean Corpuscular Ewcnjf4158-91-03 06:09:00* Test Item Value Reference Range Interpretation Comments Mean Corpuscular Volume (test code = 787-2) 83.4 81-99 [facility] CenterMean Corpuscular Juuqfbilie3123-57-23 06:09:00* Test Item Value Reference Range Interpretation Comments Mean Corpuscular Hemoglobin (test code = 785-6) 29.8 28-32 [facility] CenterMean Corpuscular Hemoglobin Concent 2018-02-24 06:09:00* Test Item Value Reference Range Interpretation Comments Mean Corpuscular Hemoglobin Concent (test code = 786-4) 35.8 31-35 H [facility] CenterRed Cell Distribution Rbtea8715-93-20 06:09:00* Test Item Value Reference Range Interpretation Comments Red Cell Distribution Width (test code = 92494-8) 13.3 11.7 -14.4 [facility] CenterPlatelet Fwkum7432-67-03 06:09:00* Test Item Value Reference Range Interpretation Comments Platelet Count (test code = 777-3) 100 140-360 L [facility] CenterNeutrophils (%) (Auto)2018-02-24 06:09:00 * Test Item Value Reference Range Interpretation Comments Neutrophils (%) (Auto) (test code = 60785-4) 74.1 38.7-80.0 [facility] CenterLymphocytes (%) (Auto)2018-02-24 06:09:00 * Test Item Value Reference Range Interpretation Comments Lymphocytes (%) (Auto) (test code = 736-9) 23.4 18.0-39.1 [facility] CenterMonocytes (%) (Auto)2018-02-24 06:09:00* Test Item Value Reference Range Interpretation Comments Monocytes (%) (Auto) (test code = 5905-5) 1.5 4.4-11.3 L [facility] CenterEosinophils (%) (Auto)2018-02-24 06:09:00 * Test Item Value Reference Range Interpretation Comments Eosinophils (%) (Auto) (test code = 713-8) 0.0 0.0-6.0 [facility] CenterBasophils (%) (Auto)2018-02-24 06:09:00* Test Item Value Reference Range Interpretation Comments Basophils (%) (Auto) (test code = 706-2) 0.5 0.0-1.0 [facility] CenterIM GRANULOCYTES %2018-02-24 06:09:00* Test Item Value Reference Range Interpretation Comments IM GRANULOCYTES % (test code = IM GRANULOCYTES %) 0.5 0.0- 1.0 [facility] CenterNeutrophils # (Auto)2018-02-24 06:09:00* Test Item Value Reference Range Interpretation Comments Neutrophils # (Auto) (test code = 751-8) 1.5 2.1-6.9 L [facility] CenterLymphocytes # (Auto)2018-02-24 06:09:00* Test Item Value Reference Range Interpretation Comments Lymphocytes # (Auto) (test code = 70052-6) 0.5 1.0-3.2 L [facility] CenterMonocytes # (Auto)2018-02-24 06:09:00* Test Item Value Reference Range Interpretation Comments Monocytes # (Auto) (test code = 742-7) 0.0 0.2-0.8 L [facility] CenterEosinophils # (Auto)2018-02-24 06:09:00* Test Item Value Reference Range Interpretation Comments Eosinophils # (Auto) (test code = 711-2) 0.0 0.0-0.4 [facility] CenterBasophils # (Auto)2018-02-24 06:09:00* Test Item Value Reference Range Interpretation Comments Basophils # (Auto) (test code = 704-7) 0.0 0.0-0.1 [facility] CenterAbsolute Immature Granulocyte (auto 2018-02-24 06:09:00* Test Item Value Reference Range Interpretation Comments Absolute Immature Granulocyte (auto (briseyda t code = Absolute Immature Granulocyte (auto) 0.01 0-0.1 [facility]odium Vefcj3811-00-24 06:06:00* Test Item Value Reference Range Interpretation Comments Sodium Level (test code = 2951-2) 136 136-145 [facility] CenterPotassium Nvnmr1813-36-71 06:06:00* Test Item Value Reference Range Interpretation Comments Potassium Level (test code = 2823-3) 4.7 3.5-5.1 [facility] CenterChloride Gbbpl7157-82-34 06:06:00* Test Item Value Reference Range Interpretation Comments Chloride Level (test code = 2075-0) 104 98-107 [facility] CenterCarbon Dioxide Uxtds6331-15-97 06:06:00* Test Item Value Reference Range Interpretation Comments Carbon Dioxide Level (test code = 2028-9) 25 22-29 [facility] CenterAnion Yjr0036-64-34 06:06:00* Test Item Value Reference Range Interpretation Comments Anion Gap (test code = 36260-5) 11.7 8-16 [facility] CenterBlood Urea Wyokbabe0309-68-43 06:06:00* Test Item Value Reference Range Interpretation Comments Blood Urea Nitrogen (test code = 3094-0) 17 7-26 [facility] CenterCreatinine2018-06-12 06:06:00* Test Item Value Reference Range Interpretation Comments Creatinine (test code = 2160-0) 0.73 0.57-1.11 [facility] CenterBUN/Creatinine Ugihn3356-26-24 06:06:00* Test Item Value Reference Range Interpretation Comments BUN/Creatinine Ratio (test code = 3097-3) 23 6-25 [facility] CenterEstimat Glomerular Filtration Rate 2018-02-24 06:06:00* Test Item Value Reference Range Interpretation Comments Estimat Glomerular Filtration Rate (test code = 69963-8) 60- >60 Ranges were taken from the National Kidney Disease Education Program and the [facility] literature.Reference ranges:60 or greater: Jzajit43-57 ( for 3 consecutive months): Chronic kidney disease 15 or less: Kidney failureChildress [facility] Medical CenterGlucose Dntbt5301-93-15 06:06:00* Test Item Value Reference Range Interpretation Comments Glucose Level (test code = EAU9683) 285 74-118 H [facility] CenterCalcium Bmdbd8306-30-11 06:06:00* Test Item Value Reference Range Interpretation Comments Calcium Level (test code = 49865-6) 9.6 8.4-10.2 [facility] CenterTotal Xiojmiqbe1832-80-49 06:06:00* Test Item Value Reference Range Interpretation Comments Total Bilirubin (test code = 1975-2) 1.2 0.2-1.2 [facility] CenterAspartate Amino Transf (AST/SGOT) 2018-02-24 06:06:00* Test Item Value Reference Range Interpretation Comments Aspartate Amino Transf (AST/SGOT) (test code = Aspartate Amino Transf (AST/SGOT)) 26 5-34 [facility] CenterAlanine Aminotransferase (ALT/SGPT) 2018-02-24 06:06:00* Test Item Value Reference Range Interpretation Comments Alanine Aminotransferase (ALT/SGPT) (test code = 1742-6) 23 0-55 [facility] CenterTotal Nthmtic1980-18-83 06:06:00* Test Item Value Reference Range Interpretation Comments Total Protein (test code = 2885-2) 6.8 6.5-8.1 [facility] CenterAlbumin2018-06-12 06:06:00* Test Item Value Reference Range Interpretation Comments Albumin (test code = 1751-7) 3.4 3.5-5.0 L [facility] CenterGlobulin2018-06-12 06:06:00* Test Item Value Reference Range Interpretation Comments Globulin (test code = 89234-3) 3.4 2.3-3.5 [facility] CenterAlbumin/Globulin Zbolt2270-87-92 06:06:00 * Test Item Value Reference Range Interpretation Comments Albumin/Globulin Ratio (test code = 1759-0) 1.0 0.8-2.0 [facility] CenterAlkaline Fwqgiwisweu5869-80-69 06:06:00* Test Item Value Reference Range Interpretation Comments Alkaline Phosphatase (test code = 6768-6) 176 40-150 H [facility] CenterTriglycerides Uxofo4898-70-58 06:06:00* Test Item Value Reference Range Interpretation Comments Triglycerides Level (test code = 2571-8) 47 0-149 [facility] CenterCholesterol Otiqn6498-34-69 06:06:00* Test Item Value Reference Range Interpretation Comments Cholesterol Level (test code = 2093-3) 139 0-199 Less than 200 mg/dL Low Lfad162 - 239 mg/dL Borderline Jkit195 m g/dl and greater High Risk [facility] CenterLDL Ggbmaqtlvjh4012-02-72 06:06:00* Test Item Value Reference Range Interpretation Comments LDL Cholesterol (test code = 2089-1) 84 60-130 [facility] CenterHDL Gtnyzjlotam0178-65-23 06:06:00* Test Item Value Reference Range Interpretation Comments HDL Cholesterol (test code = 2085-9) 46 40-60 [facility] CenterCholesterol/HDL Poyuo4724-09-41 06:06:00 * Test Item Value Reference Range Interpretation Comments Cholesterol/HDL Ratio (test code = 9830-1) 3.0 3.0-3.6 [facility] CenterTriglycerides Sikev6566-25-41 06:06:00* Test Item Value Reference Range Interpretation Comments Triglycerides Level (test code = 2571-8) 47 0-149 [facility] CenterCholesterol Xmaly5708-77-60 06:06:00* Test Item Value Reference Range Interpretation Comments Cholesterol Level (test code = 2093-3) 139 0-199 Less than 200 mg/dL Low Wagy583 - 239 mg/dL Borderline Igyf880 m g/dl and greater High Risk [facility] CenterLDL Hzjhpjdcnwf9429-25-52 06:06:00* Test Item Value Reference Range Interpretation Comments LDL Cholesterol (test code = 2089-1) 84 60-130 [facility]L Hrvotsjnxvk3490-70-34 06:06:00* Test Item Value Reference Range Interpretation Comments HDL Cholesterol (test code = 2085-9) 46 40-60 [facility] CenterCholesterol/HDL Hszmm1973-38-23 06:06:00 * Test Item Value Reference Range Interpretation Comments Cholesterol/HDL Ratio (test code = 9830-1) 3.0 3.0-3.6 [facility] CenterCreatine Davuqz5905-31-32 04:15:00* Test Item Value Reference Range Interpretation Comments Creatine Kinase (test code = 2157-6) 40 29-168 [facility] CenterCreatine Kinase JY0484-38-95 04:15:00* Test Item Value Reference Range Interpretation Comments Creatine Kinase MB (test code = 64941-1) 1.90 0-5.0 [facility] CenterTroponin G4963-27-69 04:15:00* Test Item Value Reference Range Interpretation Comments Troponin I (test code = QNK7760) 0.005 0-0.300 [facility] CenterMagnesium Nqmfb8852-92-29 19:28:00* Test Item Value Reference Range Interpretation Comments Magnesium Level (test code = 89501-7) 1.5 1.3-2.1 [facility] CenterB-Type Natriuretic Pasanpg4768-75-59 19:28:00* Test Item Value Reference Range Interpretation Comments B-Type Natriuretic Peptide (test code = 91161-8) 74.8 0-100 [facility] CenterMagnesium Dvtsg4990-98-54 19:28:00* Test Item Value Reference Range Interpretation Comments Magnesium Level (test code = 95868-3) 1.5 1.3-2.1 [facility] CenterProthrombin Swoi4886-66-03 19:19:00* Test Item Value Reference Range Interpretation Comments Prothrombin Time (test code = 5902-2) 13.3 11.9-14.5 [facility] CenterProthromb Time International Ratio 2018-02-23 19:19:00* Test Item Value Reference Range Interpretation Comments Prothromb Time International Ratio (test code = 6301-6) 1.09 Oral Anticoagulant Therapy INR Values:1. Low Intensity Therapy 1.5 - 2.02 . Moderate Intensity Therapy 2.0 - 3.03. High Intensity Therapy(1) 2.5 - 3. 54. High Intensity Therapy(2) 3.0 - 4.05. Panic Value INR > 5.0 [facility] CenterActivated Partial Thromboplast Time 2018-02-23 19:19:00* Test Item Value Reference Range Interpretation Comments Activated Partial Thromboplast Time (test code = 49460-5) 29.7 23.8-35.5 [facility] CenterProthrombin Ayfl4262-22-45 19:19:00* Test Item Value Reference Range Interpretation Comments Prothrombin Time (test code = 5902-2) 13.3 11.9-14.5 [facility] CenterProthromb Time International Ratio 2018-02-23 19:19:00* Test Item Value Reference Range Interpretation Comments Prothromb Time International Ratio (test code = 6301-6) 1.09 Oral Anticoagulant Therapy INR Values:1. Low Intensity Therapy 1.5 - 2.02 . Moderate Intensity Therapy 2.0 - 3.03. High Intensity Therapy(1) 2.5 - 3. 54. High Intensity Therapy(2) 3.0 - 4.05. Panic Value INR > 5.0 [facility] CenterActivated Partial Thromboplast Time 2018-02-23 19:19:00* Test Item Value Reference Range Interpretation Comments Activated Partial Thromboplast Time (test code = 50425-4) 29.7 23.8-35.5 [facility] CenterCT BRAIN CP9044-20-87 18:24:00 [place] [address] Patient Name: NILSON FORTE MR #: [id number] : 1950 Age/Sex: 67/F Req #: [id number] [facility] Physician: Ordered by: TANIKA KEANE MD Report #: [id number] Location: ER Room /Bed: Procedure: [id number] CT/CT BRAIN WO Exam Date: 02/23/18 Exam Time: 1750 REPORT STATUS: Signed History:Syncope Comparison studies:None Technique: Axial images were obtained from the skull base to the vertex. Coronal and sagittal images eddy nstructed from the axial data. Intravenous contrast: None Findings: Some of the images are degraded by motion artifact. In spite of the artifacts: Scalp/skull: No abnormalities. Extra-axial spaces: No masses. No fluid collections. Brain sulci: Mildly prominent. Ventricles: Mild com pensatory dilatation. No hydrocephalus. Parenchyma: Subtle hypodensities in the supratentorial white matter are small vessel ischemic changes. No mass es, hemorrhage, acute or chronic cortical vascular insults. Sellar/supras ellar region: No abnormalities. Craniocervical junction: Patent foramen magnum . No Chiari one malformation. Incidental findings: Atherosclerotic calci fications in the carotid siphons . Impression: No acute abnormalities in spite of motion artifacts. Chronic findings: 1. Mild generalized volu me loss. 2. Mild supratentorial white matter small vessel ischemic changes. Signed by: Dr. Jai Donohue M.D. on 02/23/2018 7:31 PM Dictated By: JAI DONOHUE MD, MD 30 Transcribed By: ROSA MARIA on 02/23/181930 COPY TO: TANIKA KEANE MD CT CERVICAL SPINE ZC9662-68-47 18:24:00 [place] [address] Patient Name: NILSON FORTE MR #: [id number] : 1950 Age/Sex: 67/F Req #: [id number] Adm Physician: Ordered by: TANIKA KEANE MD Report #: [id number] Location: Room /Bed: Procedure: [id number] CT/CT CERVICAL SPINE WENDY Wheeler xam Date: 02/23/18 Exam Time: 1750 REPORT STATU S: Signed History: Syncope Comparison studies: None Technique: Axia l images were obtained through the cervical region.. Coronal and sagittal imag es reconstructed from the axial data.. Intravenous contrast: None Finding s: Fractures: None. Soft tissues: No gross abnormalities. Atlantoaxi al articulation: Mild degenerative changes. Alignment: Normal lordosis. No sco liosis. Cervicomedullary junction: No abnormalities. The foramen magnum is pat ent. Vertebrae: No infection or neoplasm. Degenerative changes: Mildly degenerated discs at C3-4 and from C5 to C7. Mild bilateral facet arthr osis from C2 to T1 Patent spinal canal and foramina. No disc herniations. IMPRESSION: 1. No acute abnormalities. 2. Cannot adequately evaluate for ligament, spinal cord and or vascular abnormalities. 3. Degenerative changes as described. Signed by: Dr. Jai Donohue M.D. on 02/23/2018 7:34 PM Dictated By: JIA DONOHUE MD, MD 33 Transcribed By: ROSA MARIA on 08/02 COPY TO: TANIKA KEANE MD CHEST SINGLE (PORTABLE) 2018-02-23 18:22:00 [place] [address] Patient Name: NILSON FORTE MR #: [id number] : 1950 Age/Sex: 67/F Req #: [id number] Adm Physician: Ordered by: TANIKA KEANE MD Report #: [id number] Location: ER Room/Bed: Procedure: [id number] DX/CHEST SINGLE (PORTABLE) Exam Date: 02/23/18 Exam Time: [address] ATUS: Signed PROCEDURE: A single AP view of the chest. COMPARISON: [facility] x-ray 11/17/2017. INDICATIONS: chest pains, copd, coughing up blood FINDINGS: Lines/tubes: None. Lungs: Lungs are inflated. Mild b ibasilar atelectasis. Pleura: There is no pleural effusion or pneumothora x. Heart and mediastinum: The heart and the mediastinum are unremarkable. Aorta is mildly tortuous with atherosclerotic calcifications. Bones: No acute bony abnormality. IMPRESSION: Mild bibasilar atelectasis. No acute cardiopulmonary disease. Dictated by: Deonte Constantino M.D. on 02/23/2018 at 18:22 Electronically approved by: Deonte Constantino M.D. on 02/23/2018 at 18:22 Dictated By: DEONTE CONSTANTINO MD 21 Transcribed By: DINORA on 02/23/181821 COPY TO: TANIKA KEANE MD Blood Icntaae3300-55-52 17:00:00* Test Item Value Reference Range Interpretation Comments Blood Culture (test code = 85958245) NO GROWTH AFTER 5 DAYS, FINAL REPORT [facility] Cnahark9660-19-60 17:00:00* Test Item Value Reference Range Interpretation Comments Blood Culture (test code = 31366328) NO GROWTH AFTER 5 DAYS, FINAL REPORT [facility] CenterInfluenza Virus Types A,B Antigen 2017-11-17 18:53:00* Test Item Value Reference Range Interpretation Comments Influenza Virus Types A,B Antigen (test code = 78531-7) NEGATIVE NEGATIVE [facility] CenterInfluenza Virus Types A,B Antigen 2017-11-17 18:53:00* Test Item Value Reference Range Interpretation Comments Influenza Virus Types A,B Antigen (test code = 15455-3) NEGATIVE NEGATIVE [facility] CenterIn[facility]enza Virus Types A,B Antigen 2017-11-17 18:53:00* Test Item Value Reference Range Interpretation Comments Influenza Virus Types A,B Antigen (test code = 95522-5) NEGATIVE NEGATIVE [facility] LKX8733-16-00 18:28:00* Test Item Value Reference Range Interpretation Comments Urine WBC (test code = 5821-4) NONE 0-5 [facility] EBF2793-88-33 18:28:00* Test Item Value Reference Range Interpretation Comments Urine RBC (test code = 79782-7) NONE 0-5 [facility] Ijfswyus4861-70-68 18:28:00* Test Item Value Reference Range Interpretation Comments Urine Bacteria (test code = 94618-6) FEW NONE [facility] Epithelial Egazc4019-87-54 18:28:00 * Test Item Value Reference Range Interpretation Comments Urine Epithelial Cells (test code = 28690-9) MODERATE NONE [facility] [id number] 18:28:00* Test Item Value Reference Range Interpretation Comments Urine WBC (test code = 5821-4) NONE 0-5 [facility] [id number] 18:28:00* Test Item Value Reference Range Interpretation Comments Urine RBC (test code = 33630-7) NONE 0-5 [facility] Spxsphao1147-77-66 18:28:00* Test Item Value Reference Range Interpretation Comments Urine Bacteria (test code = 01452-0) FEW NONE [facility] Epithelial Hzfsd2411-89-87 18:28:00 * Test Item Value Reference Range Interpretation Comments Urine Epithelial Cells (test code = 87406-0) MODERATE NONE [facility] MDF7185-50-94 18:28:00* Test Item Value Reference Range Interpretation Comments Urine WBC (test code = 5821-4) NONE 0-5 [facility] ILY7557-51-64 18:28:00* Test Item Value Reference Range Interpretation Comments Urine RBC (test code = 59567-6) NONE 0-5 [facility] Tddioaeu1972-36-78 18:28:00* Test Item Value Reference Range Interpretation Comments Urine Bacteria (test code = 58542-6) FEW NONE [facility] Epithelial Pqlzf6001-86-31 18:28:00 * Test Item Value Reference Range Interpretation Comments Urine Epithelial Cells (test code = 89925-6) MODERATE NONE [facility] Thfdf1862-07-69 18:15:00* Test Item Value Reference Range Interpretation Comments Urine Color (test code = 5778-6) YELLOW YELLOW [facility] Adniqgs3578-18-39 18:15:00* Test Item Value Reference Range Interpretation Comments Urine Clarity (test code = 01291-1) CLEAR CLEAR [facility] Center[facility] Specific Prntewz3342-60-19 18:15:00 * Test Item Value Reference Range Interpretation Comments Urine Specific [place] (test code = 5811-5) 1.015 1.010-1.02 5 [facility] Center[facility] fL1140-17-90 18:15:00* Test Item Value Reference Range Interpretation Comments Urine pH (test code = 27500-1) 8 5-7 H [facility] Center[facility] Leukocyte Gwfhnhzt1895-89-59 18:15:00* Test Item Value Reference Range Interpretation Comments Urine Leukocyte Esterase (test code = 5799-2) NEGATIVE NEGATIVE [facility] Usueqlq1096-27-51 18:15:00* Test Item Value Reference Range Interpretation Comments Urine Nitrite (test code = 76060-8) NEGATIVE NEGATIVE [facility] Rpasimi2721-56-21 18:15:00* Test Item Value Reference Range Interpretation Comments Urine Protein (test code = 5804-0) NEGATIVE NEGATIVE [facility] Center[facility] Glucose (UA)2017-11-17 18:15:00* Test Item Value Reference Range Interpretation Comments Urine Glucose (UA) (test code = 2349-9) NEGATIVE NEGATIVE [facility] Center[facility] Vomxekn0762-60-88 18:15:00* Test Item Value Reference Range Interpretation Comments Urine Ketones (test code = 33740-1) NEGATIVE NEGATIVE [facility] Ojnrpfrwijdq0420-59-48 18:15:00* Test Item Value Reference Range Interpretation Comments Urine Urobilinogen (test code = 16593-7) 0.2 0.2-1 [facility] Orezseeno0487-09-85 18:15:00* Test Item Value Reference Range Interpretation Comments Urine Bilirubin (test code = 1978-6) NEGATIVE NEGATIVE [facility] Center[facility] Whtoz6264-75-54 18:15:00* Test Item Value Reference Range Interpretation Comments Urine Blood (test code = 86969-4) NEGATIVE NEGATIVE [facility] Bwuuv6332-92-03 18:15:00* Test Item Value Reference Range Interpretation Comments Urine Color (test code = 5778-6) YELLOW YELLOW [facility] Center[facility] Takkrwy8756-78-62 18:15:00* Test Item Value Reference Range Interpretation Comments Urine Clarity (test code = 43045-2) CLEAR CLEAR [facility] CenterU[facility] Specific Dixuqai0174-39-43 18:15:00 * Test Item Value Reference Range Interpretation Comments Urine Specific [place] (test code = 5811-5) 1.015 1.010-1.02 5 [facility] wO6201-47-45 18:15:00* Test Item Value Reference Range Interpretation Comments Urine pH (test code = 28697-2) 8 5-7 H [facility] Center[facility] Leukocyte Askgruyx8537-95-82 18:15:00* Test Item Value Reference Range Interpretation Comments Urine Leukocyte Esterase (test code = 5799-2) NEGATIVE NEGATIVE [facility] Center[facility] Dskhdfp4090-30-32 18:15:00* Test Item Value Reference Range Interpretation Comments Urine Nitrite (test code = 62747-9) NEGATIVE NEGATIVE [facility] Center[facility] Krqqxhe3830-99-89 18:15:00* Test Item Value Reference Range Interpretation Comments Urine Protein (test code = 5804-0) NEGATIVE NEGATIVE [facility] CenterU[facility] Glucose (UA)2017-11-17 18:15:00* Test Item Value Reference Range Interpretation Comments Urine Glucose (UA) (test code = 2349-9) NEGATIVE NEGATIVE [facility] CenterU[facility] Dbebliy5229-85-60 18:15:00* Test Item Value Reference Range Interpretation Comments Urine Ketones (test code = 96191-6) NEGATIVE NEGATIVE [facility] Kxruxbffhdbz1935-60-25 18:15:00* Test Item Value Reference Range Interpretation Comments Urine Urobilinogen (test code = 14476-3) 0.2 0.2-1 [facility] Pztxygply2087-79-43 18:15:00* Test Item Value Reference Range Interpretation Comments Urine Bilirubin (test code = 1978-6) NEGATIVE NEGATIVE [facility] Nhsay4497-74-94 18:15:00* Test Item Value Reference Range Interpretation Comments Urine Blood (test code = 50701-5) NEGATIVE NEGATIVE [facility] Center[facility] Jezir2095-44-93 18:15:00* Test Item Value Reference Range Interpretation Comments Urine Color (test code = 5778-6) YELLOW YELLOW [facility] Center[facility] Ghkzlnv7194-67-90 18:15:00* Test Item Value Reference Range Interpretation Comments Urine Clarity (test code = 89132-6) CLEAR CLEAR [facility] CenterU[facility] Specific Jnqwinr4695-33-91 18:15:00 * Test Item Value Reference Range Interpretation Comments Urine Specific [place] (test code = 5811-5) 1.015 1.010-1.02 5 [facility] CenterU[facility] qO7028-13-77 18:15:00* Test Item Value Reference Range Interpretation Comments Urine pH (test code = 90530-1) 8 5-7 H [facility] CenterU[facility] Leukocyte Brufpuar3947-79-45 18:15:00* Test Item Value Reference Range Interpretation Comments Urine Leukocyte Esterase (test code = 5799-2) NEGATIVE NEGATIVE [facility] Center[facility] Lsrepqn8282-00-29 18:15:00* Test Item Value Reference Range Interpretation Comments Urine Nitrite (test code = 68794-5) NEGATIVE NEGATIVE [facility] Center[facility] Tclczcw6599-05-41 18:15:00* Test Item Value Reference Range Interpretation Comments Urine Protein (test code = 5804-0) NEGATIVE NEGATIVE [facility] CenterU[facility] Glucose (UA)2017-11-17 18:15:00* Test Item Value Reference Range Interpretation Comments Urine Glucose (UA) (test code = 2349-9) NEGATIVE NEGATIVE [facility] CenterU[facility] Hbugmiq4755-89-12 18:15:00* Test Item Value Reference Range Interpretation Comments Urine Ketones (test code = 16881-1) NEGATIVE NEGATIVE [facility] Center[facility] Faxmecehbupd1410-39-16 18:15:00* Test Item Value Reference Range Interpretation Comments Urine Urobilinogen (test code = 84434-7) 0.2 0.2-1 [facility] CenterU[facility] Qtqmifaya4635-89-81 18:15:00* Test Item Value Reference Range Interpretation Comments Urine Bilirubin (test code = 1978-6) NEGATIVE NEGATIVE [facility] CenterU[facility] Gkzro2790-24-88 18:15:00* Test Item Value Reference Range Interpretation Comments Urine Blood (test code = 08375-3) NEGATIVE NEGATIVE [facility] CenterCreatine Kinase EY7340-83-16 17:40:00* Test Item Value Reference Range Interpretation Comments Creatine Kinase MB (test code = 14144-6) 1.80 0-5.0 [facility] CenterTroponin [id number] 17:40:00* Test Item Value Reference Range Interpretation Comments Troponin I (test code = DBU8141) 0.005 0-0.300 [facility] CenterThyroid Stimulating Hormone (TSH) 2017-11-17 17:40:00* Test Item Value Reference Range Interpretation Comments Thyroid Stimulating Hormone (TSH) (test code = 01241-6) 0.737 0.350-4.940 [facility] CenterB-Type Natriuretic Exioteg0770-95-35 17:21:00* Test Item Value Reference Range Interpretation Comments B-Type Natriuretic Peptide (test code = 34685-9) 153.0 0-100 [facility] Bnpad2969-33-14 17:17:00* Test Item Value Reference Range Interpretation Comments Sodium Level (test code = 2951-2) 140 136-145 [facility] CenterPotassium Aigiw8047-20-88 17:17:00* Test Item Value Reference Range Interpretation Comments Potassium Level (test code = 2823-3) 4.0 3.5-5.1 [facility] CenterChloride Iwzze6788-19-78 17:17:00* Test Item Value Reference Range Interpretation Comments Chloride Level (test code = 2075-0) 105 98-107 [facility] CenterCarbon Dioxide Qbjsk7419-67-01 17:17:00* Test Item Value Reference Range Interpretation Comments Carbon Dioxide Level (test code = 2028-9) 25 22-29 [facility] CenterAnion Iml7817-83-06 17:17:00* Test Item Value Reference Range Interpretation Comments Anion Gap (test code = 85308-6) 14.0 8-16 [facility] CenterBlood Urea Ghqhqyri9099-30-28 17:17:00* Test Item Value Reference Range Interpretation Comments Blood Urea Nitrogen (test code = 3094-0) 10 7-26 [facility] CenterCreatinine2018-03-05 17:17:00* Test Item Value Reference Range Interpretation Comments Creatinine (test code = 2160-0) 0.67 0.57-1.11 [facility] CenterBUN/Creatinine Uulba6262-68-45 17:17:00* Test Item Value Reference Range Interpretation Comments BUN/Creatinine Ratio (test code = 3097-3) 15 6-25 [facility] CenterEstimat Glomerular Filtration Rate 2017-11-17 17:17:00* Test Item Value Reference Range Interpretation Comments Estimat Glomerular Filtration Rate (test code = 86599-6) 60- >60 Ranges were taken from the National Kidney Disease Education Program and the [facility] literature.Reference ranges:60 or greater: Ozuxrr62-32 ( for 3 consecutive months): Chronic kidney disease 15 or less: Kidney failureChildress Regional Medical CenterGlucose Nmfqg5419-07-52 17:17:00* Test Item Value Reference Range Interpretation Comments Glucose Level (test code = CHP9330) 136 74-118 H [facility] CenterCalcium Egfmj3405-38-82 17:17:00* Test Item Value Reference Range Interpretation Comments Calcium Level (test code = 28031-7) 9.2 8.4-10.2 [facility] CenterMagnesium Fekud1575-78-88 17:17:00* Test Item Value Reference Range Interpretation Comments Magnesium Level (test code = 09644-4) 1.4 1.3-2.1 [facility] CenterTotal Xmebroawo9835-14-99 17:17:00* Test Item Value Reference Range Interpretation Comments Total Bilirubin (test code = 1975-2) 0.7 0.2-1.2 [facility] CenterAspartate Amino Transf (AST/SGOT) 2017-11-17 17:17:00* Test Item Value Reference Range Interpretation Comments Aspartate Amino Transf (AST/SGOT) (test code = Aspartate Amino Transf (AST/SGOT)) 25 5-34 [facility] CenterAlanine Aminotransferase (ALT/SGPT) 2017-11-17 17:17:00* Test Item Value Reference Range Interpretation Comments Alanine Aminotransferase (ALT/SGPT) (test code = 1742-6) 32 0-55 [facility] CenterTotal Jtenfrs2758-73-67 17:17:00* Test Item Value Reference Range Interpretation Comments Total Protein (test code = 2885-2) 7.3 6.5-8.1 [facility] CenterAlbumin2018-03-05 17:17:00* Test Item Value Reference Range Interpretation Comments Albumin (test code = 1751-7) 4.0 3.5-5.0 [facility] CenterGlobulin2018-03-05 17:17:00* Test Item Value Reference Range Interpretation Comments Globulin (test code = 56665-6) 3.3 2.3-3.5 [facility] CenterAlbumin/Globulin Nnrzj7189-24-95 17:17:00 * Test Item Value Reference Range Interpretation Comments Albumin/Globulin Ratio (test code = 1759-0) 1.2 0.8-2.0 [facility] CenterAlkaline Ecacasmgdws5026-98-34 17:17:00* Test Item Value Reference Range Interpretation Comments Alkaline Phosphatase (test code = 6768-6) 118 40-150 [facility] CenterCreatine Mxsojp6158-66-56 17:17:00* Test Item Value Reference Range Interpretation Comments Creatine Kinase (test code = 2157-6) 75 29-168 [facility] CenterLipase2018-03-05 17:17:00* Test Item Value Reference Range Interpretation Comments Lipase (test code = 3040-3) 31 8-78 [facility] CenterLipase2018-03-05 17:17:00* Test Item Value Reference Range Interpretation Comments Lipase (test code = 3040-3) 31 8-78 [facility] CenterLipase2018-03-05 17:17:00* Test Item Value Reference Range Interpretation Comments Lipase (test code = 3040-3) 31 8-78 [facility] CenterLactic Acid Uvozf4312-72-91 17:09:00* Test Item Value Reference Range Interpretation Comments Lactic Acid Level (test code = Lactic Acid Level) 17.4 4.5- 19.8 [facility] CenterLactic Acid Tsiel9776-28-83 17:09:00* Test Item Value Reference Range Interpretation Comments Lactic Acid Level (test code = Lactic Acid Level) 17.4 4.5- 19.8 [facility] CenterLactic Acid Rxhfy6442-96-31 17:09:00* Test Item Value Reference Range Interpretation Comments Lactic Acid Level (test code = Lactic Acid Level) 17.4 4.5- 19.8 [facility] CenterWhite Blood Remuq5177-51-05 16:59:00* Test Item Value Reference Range Interpretation Comments White Blood Count (test code = 6690-2) 7.16 4.8-10.8 [facility] CenterRed Blood Ovgnt1917-12-05 16:59:00* Test Item Value Reference Range Interpretation Comments Red Blood Count (test code = 789-8) 4.92 3.6-5.1 [facility] CenterHemoglobin2018-03-05 16:59:00* Test Item Value Reference Range Interpretation Comments Hemoglobin (test code = 53487-6) 14.6 12.0-16.0 [facility] CenterHematocrit2018-03-05 16:59:00* Test Item Value Reference Range Interpretation Comments Hematocrit (test code = 4544-3) 40.9 34.2-44.1 [facility] CenterMean Corpuscular Rlekhd3643-13-47 16:59:00* Test Item Value Reference Range Interpretation Comments Mean Corpuscular Volume (test code = 787-2) 83.1 81-99 [facility] CenterMean Corpuscular Lbndxpemtv2985-68-48 16:59:00* Test Item Value Reference Range Interpretation Comments Mean Corpuscular Hemoglobin (test code = 785-6) 29.7 28-32 [facility] CenterMean Corpuscular Hemoglobin Concent 2017-11-17 16:59:00* Test Item Value Reference Range Interpretation Comments Mean Corpuscular Hemoglobin Concent (test code = 786-4) 35.7 31-35 H [facility] CenterRed Cell Distribution Irgzy0941-23-12 16:59:00* Test Item Value Reference Range Interpretation Comments Red Cell Distribution Width (test code = 47207-3) 14.6 11.7 -14.4 H [facility] CenterPlatelet Zemiq0670-02-67 16:59:00* Test Item Value Reference Range Interpretation Comments Platelet Count (test code = 777-3) 113 140-360 L [facility] CenterNeutrophils (%) (Auto)2017-11-17 16:59:00 * Test Item Value Reference Range Interpretation Comments Neutrophils (%) (Auto) (test code = 13565-4) 68.6 38.7-80.0 [facility] CenterLymphocytes (%) (Auto)2017-11-17 16:59:00 * Test Item Value Reference Range Interpretation Comments Lymphocytes (%) (Auto) (test code = 736-9) 18.9 18.0-39.1 [facility] CenterMonocytes (%) (Auto)2017-11-17 16:59:00* Test Item Value Reference Range Interpretation Comments Monocytes (%) (Auto) (test code = 5905-5) 5.3 4.4-11.3 [facility] CenterEosinophils (%) (Auto)2017-11-17 16:59:00 * Test Item Value Reference Range Interpretation Comments Eosinophils (%) (Auto) (test code = 713-8) 5.9 0.0-6.0 [facility] CenterBasophils (%) (Auto)2017-11-17 16:59:00* Test Item Value Reference Range Interpretation Comments Basophils (%) (Auto) (test code = 706-2) 0.7 0.0-1.0 [facility] CenterIM GRANULOCYTES %2017-11-17 16:59:00* Test Item Value Reference Range Interpretation Comments IM GRANULOCYTES % (test code = IM GRANULOCYTES %) 0.6 0.0- 1.0 [facility] CenterNeutrophils # (Auto)2017-11-17 16:59:00* Test Item Value Reference Range Interpretation Comments Neutrophils # (Auto) (test code = 751-8) 4.9 2.1-6.9 [facility] CenterLymphocytes # (Auto)2017-11-17 16:59:00* Test Item Value Reference Range Interpretation Comments Lymphocytes # (Auto) (test code = 01513-1) 1.4 1.0-3.2 [facility] CenterMonocytes # (Auto)2017-11-17 16:59:00* Test Item Value Reference Range Interpretation Comments Monocytes # (Auto) (test code = 742-7) 0.4 0.2-0.8 [facility] CenterEosinophils # (Auto)2017-11-17 16:59:00* Test Item Value Reference Range Interpretation Comments Eosinophils # (Auto) (test code = 711-2) 0.4 0.0-0.4 [facility] CenterBasophils # (Auto)2017-11-17 16:59:00* Test Item Value Reference Range Interpretation Comments Basophils # (Auto) (test code = 704-7) 0.1 0.0-0.1 [facility] CenterAbsolute Immature Granulocyte (auto 2017-11-17 16:59:00* Test Item Value Reference Range Interpretation Comments Absolute Immature Granulocyte (auto (briseyda t code = Absolute Immature Granulocyte (auto) 0.04 0-0.1 [facility] [address] [address] Patient Name: NILSON FORTE MR #: [id number] : 1950 Age/Sex: 67/F Req #: [id number] Adm Physician: Ordered by: S[employer]TO CLEANING TRAVELING AUDITOR Report #: [id number] Location: ER Room/Bed: Procedure: [id number] DX/CHEST SINGLE (PORTABLE) Exam Date: Exam Time: REPORT STATUS: Signed PROCEDURE: A single AP view of the chest. COMPARISON: None. MAGALYS CATIONS: SHORTNESS OF BREATH FINDINGS: Lines/tubes: None. L ungs: The lungs are well inflated. There is mildly increased interstitial kiley ng markings. Pleura: There is no significant pleural effusion or pneu mothorax. Heart and mediastinum: The heart and the mediastinum are unrema rkable. Aorta is mildly calcified and tortuous. Bones: No acute bony a bnormality. IMPRESSION: Mildly increased interstitial lung markings , suggestive of mild interstitial edema. Otherwise, unremarkable. D ictated by: Charlie Friedman M.D. on 11/17/2017 at 16:39 Electronically tiara roved by: Charlie Friedman M.D. on 11/17/2017 at 16:39 Dictated By: CHARLIE FRIEDMAN MD 164 0 Transcribed By: DINORA on 11/17/17 1640 COPY TO: S[employer]AN[employer] TRAVELING AUDITOR
--- OUTSIDE RECORDS SUMMARY | 2020-08-03 14:02 | XMS REPORT | Clinical Summary ---
Author Author NERY FenergoBon[facility] HospitalOneStopWebFlorida Medical Center Address Unknown Phone Unavailable Care Team Providers Care Blueprint Machine Operator Name Role Phone PCP Unavailable Allergies Comments Active Allergy Reactions Severity Noted Date Hydromorphone 04/24/2018 Medications End Date Status Medication Sig Dispensed Refills Start Date Active albuterol HFA (VENTOLIN Inhale 2 0 HFA) 90 mcg/actuation puffs by inhaler mouth via inhaler every 6 (six) hours as needed for Wheezing. Active albuterol (ACCUNEB) 1.25 Take 1 ampule 0 mg/3 mL nebulizer by solution nebulization 2 (two) times daily as needed for Wheezing. Active aspirin 81 MG EC tablet Take 81 mg by 0 mouth daily. Active baclofen (LIORESAL) 10 MG Take 10 mg by 0 tablet mouth 3 (three) times daily. Active codeine 60 MG tablet Take 60 mg by 0 mouth every 6 (six) hours as needed for Pain. Active LORazepam (ATIVAN) 1 MG Take 1 mg by 0 tablet mouth every 8 (eight) hours as needed for Anxiety. Active temazepam (RESTORIL) 15 Take 15 mg by 0 mg capsule mouth every night as needed for Sleep. Active Problems Problem Noted Date Syncope 04/27/2018 Status post placement of implantable loop recorder 0 04/27/2018 COPD (chronic obstructive pulmonary disease) 018 History of loop recorder s/p explant of loop recorder on 04/27/2018 04/27/2018 Pulmonary HTN 04/07/2018 Mixed connective tissue disease 08/21/2017 Chronic pain disorder 02/21/2017 Anxiety 10/31/2016 Chronic respiratory failure with hypoxia and hypercap brandon 10/31/2016 Major depressive disorder with single episode, in par tial remission 10/31/2016 PVD (peripheral vascular disease) 10/31/2016 Thrombocytopenia 10/31/2016 Tobacco abuse 10/31/2016 Essential hypertension 10/02/2016 Social History Date Tobacco Use Types Packs/Day Years Used Current Some Day Smoker 0.25 Smokeless Tobacco: Never Used Drinks/Week oz/Week Comments Alcohol Use No Sex Assigned at Date Recorded Not on file Last Filed Vital Signs Not on file Plan of Treatment Health Maintenance Due Date Last Done Comments BREAST CANCER SCREENING 1950 COLON CANCER SCREENING 1950 COLONOSCOPY PNEUMOCOCCAL 65+ YRS (2 2016 08/11/2016 of 2 - PPSV23) MEDICARE ANNUAL WELLNESS 09/16/2017 (YEAR 2 or FIRST YEAR if no IPPE) INFLUENZA VACCINE (#1) 2020 Results Not on fileafter 08/03/2019 Insurance Type Payer Benefit Subscriber ID Effective Phone Address Plan / Dates Group [employer] [id number] 2016-P MEDICARE resent ADV [id number] Advance Directives For more information, please contact: [phone] Date Inactivated Comments Code Status Date Activated 04/27/2018 3:40 PM Full Code 04/27/2018 7:57 AM This code status was determined by: Patient
[2020-08-03] MEDS ORDERED: ALBUTEROL SULF 0.083% NEB SOLN 3 ML NEB ONE (14:06)
[2020-08-03 15:06] LABS: BASOPHILS # (AUTO) 0.1 (0.0-0.1); BASOPHILS % 0.8 % (0.0-1.0); EOSINOPHILS # (AUTO) 0.8 (0.0-0.4); HEMATOCRIT 41.5 % (34.2-44.1); HEMOGLOBIN 14.5 g/dL (12.0-16.0); LYMPHOCYTES # (AUTO) 0.9 (1.0-3.2); MEAN CORPUSCULAR HEMOGLOBIN 34.5 pg (28-32); MEAN CORPUSCULAR HGB CONC 34.9 g/dL (31-35); MEAN CORPUSCULAR VOLUME 98.8 fL (81-99); MONOCYTES # (AUTO) 0.3 (0.2-0.8); MONOCYTES % 4.9 % (4.4-11.3); NEUTROPHILS # (AUTO) 3.9 (2.1-6.9); PLATELET COUNT 171 x10e3/uL (140-360); RED CELL DISTRIBUTION WIDTH 16.4 % (11.7-14.4)
[2020-08-03 15:17] LABS: INR 1.05; PROTHROMBIN TIME 14.2 seconds (11.9-14.5)
[2020-08-03 15:18] LABS: PARTIAL THROMBOPLASTIN TIME 28.6 seconds (23.8-35.5)
--- NOTE | 2020-08-03 15:18 | Diagnostic Imaging Report ---
Exam: CHEST 2 VIEWS Date: 08/03/2020 3:13 PM INDICATION: ^SOB ^Y Comparison: None FINDINGS: Lines/Tubes:None Lungs:The lungs are well inflated. Negative for lobar consolidation. Basilar atelectasis is noted. Pleura:Trace effusions are noted. Negative for pneumothorax. Heart/Mediastinum:The cardiomediastinal silhouette is normal in size and contour. Bones/Soft Tissues: No acute osseous abnormality. Upper abdomen: Unremarkable. IMPRESSION: Trace effusions/atelectasis bilaterally. Signed by: John Barba MD on 08/03/2020 3:15 PM
[2020-08-03 15:22] LABS: ALANINE AMINOTRANSFERASE 15 IU/L (0-55); ALBUMIN 4.2 g/dL (3.5-5.0); ALBUMIN/GLOBULIN RATIO 1.1 (0.8-2.0); ALKALINE PHOSPHATASE 140 IU/L (40-150); ANION GAP 16.2 mmol/L (8-16); BLOOD UREA NITROGEN 12 mg/dL (7-26); BUN/CREATININE RATIO 16 (6-25); CALCIUM 9.2 mg/dL (8.4-10.2); CARBON DIOXIDE 25 mmol/L (22-29); CHLORIDE 104 mmol/L (98-107); CREATININE, SERUM 0.75 mg/dL (0.57-1.11); EST GLOMERULAR FILTRATION RATE > 60 ML/MIN (60-); GLUCOSE 180 mg/dL (74-118); POTASSIUM 4.2 mmol/L (3.5-5.1); SODIUM 141 mmol/L (136-145)
[2020-08-03] MEDS ORDERED: TEMAZEPAM 7.5 MG CAP PO PRN ×2 (16:45→17:00)
[2020-08-03] MEDS ORDERED: ACETAMINOPHEN 325 MG TAB PO PRN ×2 (16:45→17:00)
[2020-08-03] MEDS ORDERED: ONDANSETRON HCL INJ 2MG/ML 2ML 2 MG/ML VIAL IV PRN ×2 (16:45→17:00)
[2020-08-03] MEDS ORDERED: ALBUTEROL SULFATE HFA 8GM INHALATION AEROSOL INH PRN ×2 (16:45→17:00)
--- NOTE | 2020-08-03 16:53 | NUR ---
RCD PT FROM ER BY BED PT IS ALERT AND ORIENTED VITALS CHECKED ADMISSION ASSESSMENT AND HISTORY DONE IV PATENT BY SALINE FLUSH , GETTING O2 4L BY NASAL CANULA INSTRUCTED PT REGARDING HOSPITAL POLICY AND ROUTINE BED LOW AND LOCKED CALL LIGHT IN REACH
[2020-08-03] MEDS ORDERED: DOXYCYCLINE 100MG/NS 100ML 100 ML IV SCH ×2 (17:00→17:30)
--- OUTSIDE RECORDS SUMMARY | 2020-08-03 17:17 | XMS REPORT | Continuity of Care Document ---
Author Author [facility] t Organization [facility] t Address [address] [place]. [address] [place] [id number] Phone Unavailable Care Team Providers Care Air Conditioning Equipment Mechanic Name Role Phone Paris SMITH PCP Kaylyn Abdalla Attphys Unavailable Karri KOEHLER Attphys Unavailable Del KEANE Attphys Unavailable Germania CANTU Attphys Unavailable Elina VEGAS Admphys Unavailable Payers Payer Name Policy Type Policy Number Effective Date Expiration Date Abisai geiger Kelsey Care Medicare Advantage [id number] 1993 00:0 0:00 [facility] Problems Condition Name Condition Details Condition Category Status Onset Date Resolution Date Last Treatment Date Treating Clinician Comments Source Senile purpura Senile Purpura Problem Active 2020-03-23 00:00:00 [facility] Major depressive disorder Major Depressive Disorder Problem Ac tive 2020-03-23 00:00:00 [facility] Hypertensive disorder Hypertensive Disorder Problem Active 202 00:00:00 [facility] P ractice Insomnia Insomnia Problem Active 2020-03-14 00:00:00 [facility] Tobacco user Tobacco User Problem Active 2019-11-29 00:00:00 [facility] Chronic pain syndrome Chronic Pain Syndrome Problem Active 202 00:00:00 [facility] P ractice Esotropia Esotropia Problem Active 2019-11-29 00:00:00 [facility] Severe chronic obstructive pulmonary disease Severe Ch ronic Obstructive Pulmonary Disease Problem Active 2019-11-29 00:00:00 [facility] Eosinophilic asthma Eosinophilic Asthma Problem Active 2019-11-29 00:00 :00 [facility] Multiple nodules of lung Multiple Nodules of Lung Problem Acti ve 2019-11-29 00:00:00 [facility] Syncope Syncope Disease Active 2018-04-27 00:00:00 [facility] Status post placement of implantable loop recorder Sta tus post placement of implantable loop recorder Disease Active 2018-04-27 00:00:00 [facility] COPD (chronic obstructive pulmonary disease) COPD (chr onic obstructive pulmonary disease) Disease Active 2018-04-27 00:00:00 [facility] History of loop recorder s/p explant of loop recorder on 04/27/2018 History of loop recorder s/p explant of loop recorder on 04/27/2018 Disease Acti ve 2018-04-27 00:00:00 [facility] HTN Pulmonary HTN Disease Active 2018-04-07 00:00:00 [facility] Mixed connective tissue disease Mixed connective tissue disease Dis ease Active 2017-08-21 00:00:00 [facility] Chronic pain disorder Chronic pain disorder Disease Active 201 03-20-09 00:00:00 [facility] Anxiety Anxiety Disease Active 2016-10-31 00:00:00 [facility] Chronic respiratory failure with hypoxia and hypercapn ia Chronic respiratory failure with hypoxia and hypercapnia Disease Active 2016-10-31 00:00:00 [facility] Major depressive disorder with single episode, in part ial remission Major depressive disorder with single episode, in partial remission Disease Active 2016-10-31 00:00:00 [facility] PVD (peripheral vascular disease) PVD (peripheral vascular disea se) Disease Active 2016-10-31 00:00:00 [facility] Thrombocytopenia Thrombocytopenia Disease Active 2016-10-31 00:00:00 [facility] Tobacco abuse Tobacco abuse Disease Active 2016-10-31 00:00:00 [facility] Essential hypertension Essential hypertension Disease Active 2016-10-02 00:00:00 [facility] Chest pain Chest pain Problem Active [facility] Obstructive chronic bronchitis with exacerbation Problem Active [facility] Allergies, Adverse Reactions, Alerts Allergy Name Allergy Type Status Severity Reaction(s) Onset Date Inacti ve Date Treating Clinician Comments Source Hydromorphone Allergy to substance Active Severe 2018-07-10 00:00: 00 [facility] Hydromorphone Allergy to substance Active 2018-04-24 00:00: 00 [facility] Hydromorphone Propensity to adverse reactions Active 20 02-05-10 00:00:00 [facility] [place] [facility] Hydromorphone Allergy to substance Active 2018-02-23 00:00: 00 [facility] DELALUTIN Allergy to substance Active Fatal Other [facility] Social History Social Habit Start Date Stop Date Quantity Comments Source Sex Assigned At [facility] Cigarettes smoked current (pack per day) - Reported 00:00:00 2018-04-28 00:00:00 [facility] Tobacco use and exposure 2018-04-28 00:00:00 2018-04-28 00:00:00 Shari smith used [facility] Alcohol intake 2018-04-28 00:00:00 2018-04-28 00:00:00 Current non-drinker of alcohol (finding) [facility] Gregge r Smoking Status Start Date Stop Date Source Former Smoker [facility] Deep avalos Current some day smoker 2018-04-28 00:00:00 [facility] Medications Ordered Medication Name Filled Medication Name Start Date Stop Da te Current Medication? Ordering Clinician Indication Dosage Frequency Signature (SIG) Comments Components Source albuterol HFA (VENTOLIN HFA) 90 mcg/actuation inhaler 2018-04-27 13:40:47 Yes 2{puff} Inhale 2 puffs by mouth via inhaler every 6 (six) hours as needed for Wheezing. [facility] albuterol (ACCUNEB) 1.25 mg/3 mL nebulizer solution 04-27 13:40:47 Yes 1{ampule} Take 1 ampule by nebulization 2 (two) times daily as needed for Wheezing. [facility] aspirin 81 MG EC tablet 2018-04-27 13:40:47 Yes 81mg QD Take 81 mg by mouth daily. [facility] baclofen (LIORESAL) 10 MG tablet 2018-04-27 13:40:47 Yes 10mg Q.[id number] Take 10 mg by mouth 3 (three) times daily. [facility] codeine 60 MG tablet 2018-04-27 13:40:47 Yes 60mg Take 60 mg by mouth every 6 (six) hours as needed for Pain. [facility] LORazepam (ATIVAN) 1 MG tablet 2018-04-27 13:40:47 Yes 1mg Take 1 mg by mouth every 8 (eight) hours as needed for Anxiety. [facility] temazepam (RESTORIL) 15 mg capsule 2018-04-27 13:40:47 Yes 15mg Take 15 mg by mouth every night as needed for Sleep. [facility] albuterol sulfate 1.25 mg/3 mL solution for nebulization Inhale 3 mL 4 times a day by inhalation route. albuterol sulfate 1.25 mg/3 mL solution for nebulization Inhale 3 mL 4 times a day by inhalation route. No albuterol sulfate 1.25 mg/3 mL solution for nebulization Inhale 3 mL 4 times a day by inhalation route. [facility] albuterol sulfate HFA 90 mcg/actuation a erosol inhaler INHALE 2 PUFFS BY MOUTH EVERY 4 HOURS NEEDED albuterol sulfate HFA 90 mcg/actuation a erosol inhaler INHALE 2 PUFFS BY MOUTH EVERY 4 HOURS NEEDED No albuterol sulfate HFA 90 mcg/actuation aerosol inhaler INHALE 2 PUFFS BY MOUTH EVERY 4 HOURS NEEDED [facility] ice amlodipine 5 mg tablet Take 1 tablet every day by oral route. amlodipine 5 mg tablet Take 1 tablet every day by oral route. No 1 Q1D amlodipine 5 mg tablet Take 1 tablet every day by oral route. [facility] loratadine 10 mg tablet Take 1 tablet every day by ora l route. loratadine 10 mg tablet Take 1 tablet every day by oral route. No 1 Q1D loratadine 10 mg tablet Take 1 tablet every day by oral route. [facility] losartan 100 mg tablet TAKE 1 TABLET BY MOUTH EVERY DA Y losartan 100 mg tablet TAKE 1 TABLET BY MOUTH EVERY DAY No losartan 100 mg tablet TAKE 1 TABLET BY MOUTH EVERY DAY [facility] methocarbamol 750 mg tablet TAKE 1 TABLET BY MOUTH THR EE TIMES A DAY NEEDED methocarbamol 750 mg tablet TAKE 1 TABLET BY MOUTH THREE TIMES A DAY NEEDED No methocarba mol 750 mg tablet TAKE 1 TABLET BY MOUTH THREE TIMES A DAY NEEDED [facility] ice temazepam 15 mg capsule TAKE 1 CAPSULE BY MOUTH TWICE DAILY NEEDED temazepam 15 mg capsule TAKE 1 CAPSULE BY MOUTH TWICE DAILY NEEDED No temazepam 15 mg capsule TAKE 1 CAPSULE BY MOUTH TWICE DAILY NEEDED [facility] Albuterol Sulfate (Proair Hfa Inhaler*) 8.5 Gm INH Alb uterol Sulfate (Proair Hfa Inhaler*) 8.5 Gm INH Yes As Needed [facility] Aspirin Aspirin Yes 81 Daily [facility] Baclofen Baclofen Yes 10 Three Times A Day [facility] Codeine Sulfate Codeine Sulfate Yes 60 Three Ti mes A Day [facility] Lorazepam Lorazepam Yes 1 Three Times A Day [facility] Temazepam Temazepam Yes 15 Bedtime [facility] Vital Signs Vital Name Observation Time Observation Value Comments Source BP Diastolic 2020-07-11 00:00:00 69 mm[Hg] [facility] Height 2020-07-11 00:00:00 62 [in_i] [facility] BMI (Body Mass Index) 2020-07-11 00:00:00 27.8 kg/m2 [facility] BP Systolic 2020-07-11 00:00:00 133 mm[Hg] [facility] Body Weight 2020-07-11 00:00:00 152 [lb_av] [facility] BP Diastolic 2020-06-13 00:00:00 89 mm[Hg] [facility] Height 2020-06-13 00:00:00 62 [in_i] [facility] BMI (Body Mass Index) 2020-06-13 00:00:00 28.3 kg/m2 [facility] BP Systolic 2020-06-13 00:00:00 165 mm[Hg] [facility] Body Weight 2020-06-13 00:00:00 155 [lb_av] [facility] BP Diastolic 2020-03-30 00:00:00 89 mm[Hg] [facility] Height 2020-03-30 00:00:00 62 [in_i] [facility] BMI (Body Mass Index) 2020-03-30 00:00:00 29.6 kg/m2 [facility] BP Systolic 2020-03-30 00:00:00 150 mm[Hg] [facility] Body Weight 2020-03-30 00:00:00 162 [lb_av] [facility] BP Diastolic 2020-03-23 00:00:00 108 mm[Hg] [facility] Height 2020-03-23 00:00:00 62 [in_i] [facility] BMI (Body Mass Index) 2020-03-23 00:00:00 29.6 kg/m2 [facility] BP Systolic 2020-03-23 00:00:00 180 mm[Hg] [facility] Body Weight 2020-03-23 00:00:00 162 [lb_av] [facility] BP Diastolic 2019-11-16 00:00:00 105 mm[Hg] [facility] Height 2019-11-16 00:00:00 62 [in_i] [facility] BMI (Body Mass Index) 2019-11-16 00:00:00 28.7 kg/m2 [facility] BP Systolic 2019-11-16 00:00:00 184 mm[Hg] [facility] Body Weight 2019-11-16 00:00:00 157 [lb_av] [facility] BP Diastolic 2019-10-25 00:00:00 93 mm[Hg] [facility] Height 2019-10-25 00:00:00 62 [in_i] [facility] BMI (Body Mass Index) 2019-10-25 00:00:00 28.2 kg/m2 [facility] BP Systolic 2019-10-25 00:00:00 165 mm[Hg] [facility] Body Weight 2019-10-25 00:00:00 154 [lb_av] [facility] Body Temperature 2020-08-03 16:40:00 97.9 [degF] [facility] Heart Rate 2020-08-03 16:40:00 92 /min [facility] Respiratory rate 2020-08-03 16:40:00 18 /min [facility] BP Systolic 2020-08-03 16:40:00 128 mm[Hg] [facility] BP Diastolic 2020-08-03 16:40:00 74 mm[Hg] [facility] Oxygen saturation by Pulse oximetry 2020-08-03 16:40:00 98 /min [facility] Weight 2020-08-03 14:04:00 162 [lb_av] [facility] BMI (Body Mass Index) 2020-08-03 14:04:00 29.6 kg/m2 [facility] Procedures Procedure Date / Time Performed Performing Clinician [facility] e X-ray of chest, two views 2020-08-03 00:00:00 PEGGY Vasquez [facility] Eye Surgery Procedure 2020-05-22 00:00:00 Antelmo e [facility][1] Eye Surgery 2018-09-15 00:00:00 [facility] Gastrointestinal Surgery 2018-09-15 00:00:00 Eric ram [facility][1] Cholecystectomy (Gall Bladder Removal) 2013-09-15 00:00:00 [facility] Orthopedic Surgery 2009-09-15 00:00:00 [facility] Hysterectomy (Total) 1989-09-15 00:00:00 [facility] Cholecystectomy (Gall Bladder Removal) 1987-09-15 00:00:00 [facility] Other 1987-09-15 00:00:00 [facility] Practice Other 1986-09-15 00:00:00 [facility] Practice Plan of Care Planned Activity Planned Date Details Comments Source Future Scheduled Test 2020-05-16 00:00:00 INFLUENZA VACCINE (#1) [code = INFLUENZA VACCINE (#1)] [facility] Future Scheduled Test 2017-09-16 00:00:00 MEDICARE ANNUAL WE LLNESS (YEAR 2 or FIRST YEAR if no IPPE) [code = MEDICARE ANNUAL WELLNESS (YEAR 2 or FIRST YEAR if no IPPE)] [facility] Future Scheduled Test 2016 00:00:00 PNEUMOCOCCAL 65+ Y RS (2 of 2 - PPSV23) [code = PNEUMOCOCCAL 65+ YRS (2 of 2 - PPSV23)] [facility] Future Scheduled Test 1950 00:00:00 Screening for nolan gnant neoplasm of breast (procedure) [code = 346800065] [facility] Future Scheduled Test 1950 00:00:00 Screening for nolan gnant neoplasm of colon (procedure) [code = 071798152] [facility] Instructions [facility] Encounters Start Date/Time End Date/Time Encounter Type Admission Type Attendi [facility] Care Department Encounter ID Source 2020-08-03 13:59:00 2020-08-03 16:52:00 Departed Emergency Room 1 Stephon Abdalla [facility] [id number] [facility] 2020-07-11 00:00:00 2020-07-11 00:00:00 Mario Smith , DO: [address], [address], [place] [address], Ph. [facility] - [facility] ([place]) [id number] [facility] 2020-06-13 00:00:00 2020-06-13 00:00:00 Mario Smith , DO: [address], [address], [place] [address], Ph. [facility] - [facility] (WAG) [id number] [facility] 2020-06-12 00:00:00 2020-06-12 00:00:00 Perlita Sharp: [address], [address], [place] [address], Ph. [facility] - VM_HOU_Care Management [id number] [facility] 2020-03-30 00:00:00 2020-03-30 00:00:00 Mario Smith , DO: [address], [address], [place] [address], Ph. [facility] - VM_HOU_Fa[place]o [place] ([place]) [id number] [facility] 2020-03-23 00:00:00 2020-03-23 00:00:00 Mario Smith , DO: [address], [address], [place] [address], Ph. [facility] - VM_HOU_N. [place]hsan ([place]) [id number] [facility] 2020-02-11 00:00:00 2020-02-11 00:00:00 Mario Smith , DO: [address], [place] [address], Ph. [facility] - VM_HOU_Care Management [id number] [facility] 2019-12-10 00:00:00 2019-12-10 00:00:00 Mario Smith , DO: [address], [address], [place] [address], Ph. [facility] - VM[facility]HOU_N. Ihsan ([facility]) [id number] [facility] 2019-11-16 00:00:00 2019-11-16 00:00:00 Mario Smith , DO: [address], [address], [place] [address], Ph. [facility] - VM_HOU_N. [place]hsan ([place]) [id number] [facility] 2019-10-25 00:00:00 2019-10-25 00:00:00 Mario Smith , DO: [address], [place] [address], Ph. [facility] - [facility]HOU_N. [place]hs[place] ([facility]) [id number] [facility] 2018-04-02 16:52:00 2018-04-02 19:20:00 Departed Emergency Room 1 CRISTAL KOEHLER [facility] [id number] [facility] 2018-02-23 21:09:00 2018-02-24 17:37:00 Discharged Inpatient (obs) 1 TANIKA KEANE [facility] [id number] [facility] 2017-11-17 15:43:00 2017-11-17 20:02:00 Departed Emergency Room ER VLAD CANTU [facility] [id number] [facility] 2017-11-14 16:47:00 2017-11-14 20:34:00 Departed Emergency Room [facility] [id number] [facility] Results Test Description Test Time Test Comments Results Result Comments Source CHEST 2 VIEWS 2020-08-03 15:13:00 [facility] NILSON FOTRE : 1950 Sex: F [place] [address] Patient Name: NILSON FORTE MR #: [id number] : 1950 Age/Sex: 69/F Req #: [id number] [facility] Physician: Ordered by: MARIO VEGAS MD Report #: [id number] Location: ER Room/Bed: Procedure: [id number] DX/CHEST 2 VIEWS Exam Date: Exam Time: REPORT STATUS: Signed Exam: CHEST 2 VIEWS Date: 08/03/2020 3:13 PM INDICATION: SOB Y Comparison: None FINDINGS: Lines/Tubes:None Lungs:The lungs are well inflated. Negative for lobar consolidation. Basilar atelectasis is noted. Pleura:Trace effusions are noted. Negative for pneumothorax. Heart/Mediastinum:The cardiomediastinal silhouette is normal in size and contour. Bones/Soft Tissues: No acute osseous abnormality. Upper abdomen: Unremarkable. IMPRESSION: Trace effusions/atelectasis bilaterally. Signed by: Concepcion Barba MD on 08/03/2020 3:15 PM Dictated By: CONCEPCION BARBA MD 14 Transcribed By: ROSA MARIA on 08/03/201514 COPY TO: MARIO VEGAS MD Blood leukocytes automated count (number/volume) 2020-08-03 15:00:00 Test Item White Blood Count (test code = 6690-2) 5.93 10*3/uL 4.8-10.8 [facility] automated count (number/volume)2020-08-03 15:00:00* Test Item Value Reference Range Interpretation Comments Red Blood Count (test code = 789-8) 4.20 10*6/mL 3.6-5.1 [facility] measurement (moles/volume)2020-08-03 15:00:00* Test Item Value Reference Range Interpretation Comments Hemoglobin (test code = 37374-0) 14.5 g/dL 12.0-16.0 [facility] blood hematocrit (volume fraction)2020-08-03 15:00:00* Test Item Value Reference Range Interpretation Comments Hematocrit (test code = 4544-3) 41.5 % 34.2-44.1 [facility] erythrocyte mean corpuscular [id number] 15:00:00* Test Item Value Reference Range Interpretation Comments Mean Corpuscular Volume (test code = 787-2) 98.8 81-99 [facility] erythrocyte mean corpuscular hemoglobin (mass per erythrocyte)2020-08-03 15:00:00* Test Item Value Reference Range Interpretation Comments Mean Corpuscular Hemoglobin (test code = 785-6) 34.5 pg 28-32 [facility] erythrocyte mean corpuscular hemoglobin concentration measurement (mass/volume)2020-08-03 15:00:00* Test Item Value Reference Range Interpretation Comments Mean Corpuscular Hemoglobin Concent (test code = 786-4) 34.9 g/dL 31-35 [facility] HospitalRDW [id number] 15:00:00* Test Item Value Reference Range Interpretation Comments Red Cell Distribution Width (test code = 66980-5) 16.4 % 11.7 -14.4 [facility] blood platelet count (count/volume)2020-08-03 15:00:00* Test Item Value Reference Range Interpretation Comments Platelet Count (test code = 777-3) 171 10*3/uL 140-360 [facility]Autunc [facility] lenoired blood segmented neutrophil count as percentage of total [id number] 15:00:00* Test Item Value Reference Range Interpretation Comments Neutrophils (%) (Auto) (test code = 43276-3) 66.0 % 38.7-80.0 [facility]Aut[facility] leno[facility] blood lymphocyte count as percentage ot total [id number] 15:00:00* Test Item Value Reference Range Interpretation Comments Lymphocytes (%) (Auto) (test code = 736-9) 15.0 % 18.0-39.1 [facility] blood monocyte count as percentage of total [id number] 15:00:00* Test Item Value Reference Range Interpretation Comments Monocytes (%) (Auto) (test code = 5905-5) 4.9 % 4.4-11.3 [facility] blood eosinophil count as percentage of total [id number] 15:00:00* Test Item Value Reference Range Interpretation Comments Eosinophils (%) (Auto) (test code = 713-8) 13.0 % 0.0-6.0 [facility] blood basophil count as percentage of total [id number] 15:00:00* Test Item Value Reference Range Interpretation Comments Basophils (%) (Auto) (test code = 706-2) 0.8 % 0.0-1.0 [facility] HospitalFluoroscopic procedure less than one hour [id number] 15:00:00* Test Item Value Reference Range Interpretation Comments IM GRANULOCYTES % (test code = IM GRANULOCYTES %) 0.3 % 0.0- 1.0 [facility] blood neutrophil count 2020-08-03 15:00:00* Test Item Value Reference Range Interpretation Comments Neutrophils # (Auto) (test code = 751-8) 3.9 2.1-6.9 [facility] lymphocytes count (number/volume) 2020-08-03 15:00:00* Test Item Value Reference Range Interpretation Comments Lymphocytes # (Auto) (test code = 11059-3) 0.9 1.0-3.2 [facility] monocytes automated count (number/volume)2020-08-03 15:00:00* Test Item Value Reference Range Interpretation Comments Monocytes # (Auto) (test code = 742-7) 0.3 0.2-0.8 [facility] HospitalAutom[facility] blood eosinophil count 2020-08-03 15:00:00* Test Item Value Reference Range Interpretation Comments Eosinophils # (Auto) (test code = 711-2) 0.8 0.0-0.4 [facility] HospitalAutom[facility] blood basophil count (count/volume)2020-08-03 15:00:00* Test Item Value Reference Range Interpretation Comments Basophils # (Auto) (test code = 704-7) 0.1 0.0-0.1 [facility] HospitalFluoroscopic procedure less than one hour [id number] 15:00:00* Test Item Value Reference Range Interpretation Comments Absolute Immature Granulocyte (auto (briseyda t code = Absolute Immature Granulocyte (auto) 0.02 10*3/uL 0-0.1 [facility] HospitalProthrombin time (PT) in platelet poor plasma by coagulation [id number] 15:00:00* Test Item Value Reference Range Interpretation Comments Prothrombin Time (test code = 5902-2) 14.2 s 11.9-14.5 [facility] HospitalINR in Platelet poor plasma by Coagulation [id number] 15:00:00* Test Item Value Reference Range Interpretation Comments Prothromb Time International Ratio (test code = 6301-6) 1.05 Oral Anticoagulant Therapy INR Values:1. Low Intensity Therapy 1.5 - 2.02 . Moderate Intensity Therapy 2.0 - 3.03. High Intensity Therapy(1) 2.5 - 3. 54. High Intensity Therapy(2) 3.0 - 4.05. Panic Value INR > 5.0 [facility] HospitalActivated partial thromboplastin time (aPTT) in platelet poor plasma by coagulation [id number] 15:00:00* Test Item Value Reference Range Interpretation Comments Activated Partial Thromboplast Time (test code = 31945-8) 28.6 s 23.8-35.5 [facility] Districterum or plasma sodium measurement (moles/volume)2020-08-03 15:00:00* Test Item Value Reference Range Interpretation Comments Sodium Level (test code = 2951-2) 141 mmol/L 136-145 [facility] Districterum or plasma potassium measurement (moles/volume)2020-08-03 15:00:00* Test Item Value Reference Range Interpretation Comments Potassium Level (test code = 2823-3) 4.2 mmol/L 3.5-5.1 [facility] Districterum or plasma chloride measurement (moles/volume)2020-08-03 15:00:00* Test Item Value Reference Range Interpretation Comments Chloride Level (test code = 2075-0) 104 mmol/L 98-107 [facility] Districterum or plasma carbon dioxide, total measurement (moles/volume)2020-08-03 15:00:00* Test Item Value Reference Range Interpretation Comments Carbon Dioxide Level (test code = 2028-9) 25 mmol/L 22-29 [facility] Districterum or plasma anion qll2589-11-65 15:00:00* Test Item Value Reference Range Interpretation Comments Anion Gap (test code = 00835-5) 16.2 mmol/L 8-16 [facility] Districterum or plasma urea nitrogen measurement (mass/volume)2020-08-03 15:00:00* Test Item Value Reference Range Interpretation Comments Blood Urea Nitrogen (test code = 3094-0) 12 mg/dL 7-26 [facility] Districterum or plasma creatinine measurement (mass/volume)2020-08-03 15:00:00* Test Item Value Reference Range Interpretation Comments Creatinine (test code = 2160-0) 0.75 mg/dL 0.57-1.11 [facility] Districterum or plasma urea nitrogen/creatinine mass djbdx2318-41-44 15:00:00* Test Item Value Reference Range Interpretation Comments BUN/Creatinine Ratio (test code = 3097-3) 16 6-25 [facility] HospitalEstimated glomerular filtration rate (GFR) juvdidqbyehgt0632-30-48 15:00:00* Test Item Value Reference Range Interpretation Comments Estimat Glomerular Filtration Rate (test code = 122544727) > 60 mL/ min >60 Ranges were taken from the National Kidney Disease Education Program and the [facility] literature.Reference ranges:60 or greater: Vdezlv34-26 ( for 3 consecutive months): Chronic kidney disease 15 or less: Kidney failureHouston [facility] HospitalGlucose ophwoytgcyt5503-16-05 15:00:00* Test Item Value Reference Range Interpretation Comments Glucose Level (test code = VWW6686) 180 mg/dL 74-118 [facility] Districterum or plasma calcium measurement (mass/volume)2020-08-03 15:00:00* Test Item Value Reference Range Interpretation Comments Calcium Level (test code = 03700-7) 9.2 mg/dL 8.4-10.2 [facility] Districterum or plasma total bilirubin measurement (mass/volume)2020-08-03 15:00:00* Test Item Value Reference Range Interpretation Comments Total Bilirubin (test code = 1975-2) 1.1 mg/dL 0.2-1.2 [facility] HospitalFluoroscopic procedure less than one hour rjyvzqib1206-80-84 15:00:00* Test Item Value Reference Range Interpretation Comments Aspartate Amino Transf (AST/SGOT) (test code = Aspartate Amino Transf (AST/SGOT)) 21 [IU]/L 5-34 [facility] Districterum or plasma alanine aminotransferase measurement (enzymatic activity/volume)2020-08-03 15:00:00* Test Item Value Reference Range Interpretation Comments Alanine Aminotransferase (ALT/SGPT) (test code = 1742-6) 15 [IU]/L 0-55 [facility] Districterum or plasma protein measurement (mass/volume)2020-08-03 15:00:00* Test Item Value Reference Range Interpretation Comments Total Protein (test code = 2885-2) 8.0 g/dL 6.5-8.1 [facility] Districterum or plasma albumin measurement (mass/volume)2020-08-03 15:00:00* Test Item Value Reference Range Interpretation Comments Albumin (test code = 1751-7) 4.2 g/dL 3.5-5.0 [facility] HospitalPlasma globulin measurement (mass/volume) 2020-08-03 15:00:00* Test Item Value Reference Range Interpretation Comments Globulin (test code = 85359-7) 3.8 g/dL 2.3-3.5 [facility] Districterum or plasma albumin/globulin mass sqadu9050-03-98 15:00:00* Test Item Value Reference Range Interpretation Comments Albumin/Globulin Ratio (test code = 1759-0) 1.1 0.8-2.0 [facility] Districterum or plasma alkaline phosphatase measurement (enzymatic activity/volume)2020-08-03 15:00:00* Test Item Value Reference Range Interpretation Comments Alkaline Phosphatase (test code = 6768-6) 140 [IU]/L 40-150 [facility] HospitalCT CHEST P8516-03-96 19:08:00 [facility] [address] [place] [address] Patient Name: NILSON FORTE MR #: [id number] : 1950 Age/Sex: 67/F Req #: [id number] Adm Physician: Ordered by: CRISTAL KOHELER MD Report #: [id number] Location: ER Room /Bed: Procedure: [id number] CT/CT CHEST W Exam Date: 04/02/18 Exam Time: 1840 REPORT STATUS: Signed PROCEDURE: CT scan of the chest WITH intravenous contrast, using PE protoc ol. TECHNIQUE: The chest was scanned utilizing a multidetector helical s canner from the lung apex through the level of the adrenal glands after the I V administration of 75 cc of Isovue 370 with special concentration in the pulmonary arteries. Coronal and sagittal multiplanar reformations were obtai pedro. COMPARISON: None. INDICATIONS: Shortness of breath FIN DINGS: Exam limited by breathing motion artifact. Lines/tubes: None. Carolyn ngs and Airways: No filling defects in the main, right or left pulmonary sunshine georgi or their segmental level to suggest pulmonary embolism. Mild centrilob ular emphysematous changes predominantly in the upper lobes. Mild bilateral lower lobe dependent atelectasis. No consolidation, masses, or nodules. Air ways are clear, without endobronchial lesions. Pleura: No effusion, or pneumot horax. Heart and mediastinum: Thyroid is unremarkable. Heart size is ivan l. No pericardial effusion. Aorta is non-aneurysmal. Main pulmonary artery is enlarged, measuring 3.5 cm. Lymph nodes: No mediastinal, hilar, or axi llary adenopathy. Abdomen: Limited contrast-enhanced views of the upper ab domen show no abnormality within the visualized liver, pancreas, or kidneys. Moderate pneumobilia, predominantly in the left lobe. Gallbladder is not v isualized. Spleen is enlarged, measuring 14.3 cm in AP diameter. The adrenal glands are normal. Soft tissue density encasing the common hepatic artery at the chong hepatis (for example series 2, image 53). Bones: No aggressive l ytic lesions. Mild degenerative disc changes in the thoracic spine. Soft tiss ues are unremarkable. IMPRESSION: 1. Exam limited by breathing aguila on artifact. No CT evidence of pulmonary embolism. 2. Mild centrilobular em physematous changes in the upper lobes. No consolidation, masses, or nodules. 3. Enlarged main pulmonary artery suggesting pulmonary hypertension. 4. Ind eterminate soft tissue density which encases the common [...] Sabino Durand M.D. on 04/02/2018 at 19:08 El ectronically approved by: Sabino Durand M.D. on 04/02/2018 at 19:08 Dictated By: SABINO DURAND MD 07 Transcribed By: DINORA on 04/02/181907 COPY TO: CRISTAL KOEHLER MD CHEST SINGLE (PORTABLE)2018-04-02 18:19:00 [place] [address] Patient Name: NILSON FORTE MR #: [id number] : 1950 Age/Sex: 67/F Req #: [id number] Adm Physician: Ordered by: CRISTAL KOEHLER MD Report #: [id number] Location: ER Room /Bed: Procedure: [id number] DX/CHEST SINGLE (PORTABLE) Exam Date: 04/02/18 Exam Time: [address] ATUS: Signed PROCEDURE: A single AP view of the chest. COMPARISON: No ne. INDICATIONS: COUGH, SHORTNESS OF BREATH FINDINGS: Lines/ tubes: None. Lungs: The lungs are well inflated. Patchy airspace opacity in the right lower lung. There is no evidence of pulmonary edema. Pleu ra: There is no pleural effusion or pneumothorax. Heart and mediastinum: Cardiac silhouette is unremarkable. Pulmonary vasculature is normal. Levi lori: No acute bony abnormality. IMPRESSION: 1. patchy air space op acity in the right lower lung, which may represent atelectasis or pneumonia, in the appropriate clinical setting Oumou Sheehan ictated by: Sabino Durand M.D. on 04/02/2018 at 18:19 Electronically approved by: Sabino Durand M.D. on 04/02/2018 at 18:19 D ictated By: SABINO DURAND MD 18 COPY TO: Meredith KOEHLER MD Creatine Kinase [id number] 18:05:00* Test Item Value Reference Range Interpretation Comments Creatine Kinase MB (test code = 83350-6) 2.10 0-5.0 [facility] HospitalTroponin S0204-07-69 18:05:00* Test Item Value Reference Range Interpretation Comments Troponin I (test code = WEY8312) 0.015 0-0.300 [facility] HospitalB-Type Natriuretic Zqywahr6361-60-94 18:01:00* Test Item Value Reference Range Interpretation Comments B-Type Natriuretic Peptide (test code = 34471-1) 84.5 0-100 [facility] Districtodium Zwzko6745-10-46 17:56:00* Test Item Value Reference Range Interpretation Comments Sodium Level (test code = 2951-2) 143 136-145 [facility] HospitalPotassium Gdzcf5099-98-46 17:56:00* Test Item Value Reference Range Interpretation Comments Potassium Level (test code = 2823-3) 4.0 3.5-5.1 [facility] HospitalChloride Sqhge7470-20-96 17:56:00* Test Item Value Reference Range Interpretation Comments Chloride Level (test code = 2075-0) 104 98-107 [facility] HospitalCarbon Dioxide Efqbe4919-01-09 17:56:00* Test Item Value Reference Range Interpretation Comments Carbon Dioxide Level (test code = 2028-9) 26 22-29 [facility] HospitalAnion Eyf4593-64-33 17:56:00* Test Item Value Reference Range Interpretation Comments Anion Gap (test code = 47797-5) 17.0 8-16 H [facility] HospitalBlood Urea Pgfxmhwe5802-33-30 17:56:00* Test Item Value Reference Range Interpretation Comments Blood Urea Nitrogen (test code = 3094-0) 16 7-26 [facility] HospitalCreatinine2018-07-19 17:56:00* Test Item Value Reference Range Interpretation Comments Creatinine (test code = 2160-0) 0.66 0.57-1.11 [facility] HospitalBUN/Creatinine Jwjvh4360-83-38 17:56:00* Test Item Value Reference Range Interpretation Comments BUN/Creatinine Ratio (test code = 3097-3) 24 6- [facility] HospitalEstimat Glomerular Filtration Rate 2018-04-02 17:56:00* Test Item Value Reference Range Interpretation Comments Estimat Glomerular Filtration Rate (test code = 09784-1) 60- >60 Ranges were taken from the National Kidney Disease Education Program and the [facility] literature.Reference ranges:60 or greater: Wguirb56-79 ( for 3 consecutive months): Chronic kidney disease 15 or less: Kidney failureHouston [facility] HospitalGlucose Imwki3960-72-58 17:56:00* Test Item Value Reference Range Interpretation Comments Glucose Level (test code = MNL2791) 116 74-118 [facility] HospitalCalcium Ezrjl9484-47-16 17:56:00* Test Item Value Reference Range Interpretation Comments Calcium Level (test code = 87253-9) 9.3 8.4-10.2 [facility] HospitalTotal Oyjoukmoe2584-72-75 17:56:00* Test Item Value Reference Range Interpretation Comments Total Bilirubin (test code = 1975-2) 2.0 0.2-1.2 H [facility] HospitalAspartate Amino Transf (AST/SGOT) 2018-04-02 17:56:00* Test Item Value Reference Range Interpretation Comments Aspartate Amino Transf (AST/SGOT) (test code = Aspartate Amino Transf (AST/SGOT)) 44 5-34 H [facility] HospitalAlanine Aminotransferase (ALT/SGPT) 2018-04-02 17:56:00* Test Item Value Reference Range Interpretation Comments Alanine Aminotransferase (ALT/SGPT) (test code = 1742-6) 24 0-55 [facility] HospitalTotal Dihporj0094-25-21 17:56:00* Test Item Value Reference Range Interpretation Comments Total Protein (test code = 2885-2) 6.9 6.5-8.1 [facility] HospitalAlbumin2018-07-19 17:56:00* Test Item Value Reference Range Interpretation Comments Albumin (test code = 1751-7) 3.7 3.5-5.0 [facility] HospitalGlobulin2018-07-19 17:56:00* Test Item Value Reference Range Interpretation Comments Globulin (test code = 44109-0) 3.2 2.3-3.5 [facility] HospitalAlbumin/Globulin Uytfl9251-84-71 17:56:00 * Test Item Value Reference Range Interpretation Comments Albumin/Globulin Ratio (test code = 1759-0) 1.2 0.8-2.0 [facility] HospitalAlkaline Bqjippqbcxu1005-52-83 17:56:00* Test Item Value Reference Range Interpretation Comments Alkaline Phosphatase (test code = 6768-6) 180 40-150 H [facility] HospitalCreatine Cfumcf3889-69-22 17:56:00* Test Item Value Reference Range Interpretation Comments Creatine Kinase (test code = 2157-6) 39 29-168 [facility] HospitalD-Dimer Quantitative (PE/DVT)2018-04-02 17:48:00* Test Item Value Reference Range Interpretation Comments D-Dimer Quantitative (PE/DVT) (test code = 00048-8) 1.66 0. 00-0.45 H As with all in vitro diagnostic tests, the test results should be interpreted by the physician in conjunction with clinical findings and other test results.Test results are reported in NEW D-dimer units(ug/mLFEU).[facility] HospitalWhite Blood Igezl3740-42-92 17:36:00* Test Item Value Reference Range Interpretation Comments White Blood Count (test code = 6690-2) 6.53 4.8-10.8 [facility] HospitalRed Blood Kqaac4547-89-46 17:36:00* Test Item Value Reference Range Interpretation Comments Red Blood Count (test code = 789-8) 5.21 3.6-5.1 H [facility] HospitalHemoglobin2018-07-19 17:36:00* Test Item Value Reference Range Interpretation Comments Hemoglobin (test code = 92829-2) 15.2 12.0-16.0 [facility] HospitalHematocrit2018-07-19 17:36:00* Test Item Value Reference Range Interpretation Comments Hematocrit (test code = 4544-3) 43.2 34.2-44.1 [facility] HospitalMean Corpuscular Asykdy8179-87-04 17:36:00* Test Item Value Reference Range Interpretation Comments Mean Corpuscular Volume (test code = 787-2) 82.9 81-99 [facility] HospitalMean Corpuscular Rqnhwltqki1143-67-77 17:36:00* Test Item Value Reference Range Interpretation Comments Mean Corpuscular Hemoglobin (test code = 785-6) 29.2 28-32 [facility] HospitalMean Corpuscular Hemoglobin Concent 2018-04-02 17:36:00* Test Item Value Reference Range Interpretation Comments Mean Corpuscular Hemoglobin Concent (test code = 786-4) 35.2 31-35 H [facility] HospitalRed Cell Distribution Wsdly4892-45-46 17:36:00* Test Item Value Reference Range Interpretation Comments Red Cell Distribution Width (test code = 64278-6) 15.9 11.7 -14.4 H [facility] HospitalPlatelet Tetvc7097-90-69 17:36:00* Test Item Value Reference Range Interpretation Comments Platelet Count (test code = 777-3) 101 140-360 L [facility] HospitalNeutrophils (%) (Auto)2018-04-02 17:36:00 * Test Item Value Reference Range Interpretation Comments Neutrophils (%) (Auto) (test code = 38091-3) 53.9 38.7-80.0 [facility] HospitalLymphocytes (%) (Auto)2018-04-02 17:36:00 * Test Item Value Reference Range Interpretation Comments Lymphocytes (%) (Auto) (test code = 736-9) 28.0 18.0-39.1 [facility] HospitalMonocytes (%) (Auto)2018-04-02 17:36:00* Test Item Value Reference Range Interpretation Comments Monocytes (%) (Auto) (test code = 5905-5) 7.4 4.4-11.3 [facility] HospitalEosinophils (%) (Auto)2018-04-02 17:36:00 * Test Item Value Reference Range Interpretation Comments Eosinophils (%) (Auto) (test code = 713-8) 9.6 0.0-6.0 H [facility] HospitalBasophils (%) (Auto)2018-04-02 17:36:00* Test Item Value Reference Range Interpretation Comments Basophils (%) (Auto) (test code = 706-2) 0.9 0.0-1.0 [facility] HospitalIM GRANULOCYTES %2018-04-02 17:36:00* Test Item Value Reference Range Interpretation Comments IM GRANULOCYTES % (test code = IM GRANULOCYTES %) 0.2 0.0- 1.0 [facility] HospitalNeutrophils # (Auto)2018-04-02 17:36:00* Test Item Value Reference Range Interpretation Comments Neutrophils # (Auto) (test code = 751-8) 3.5 2.1-6.9 [facility] HospitalLymphocytes # (Auto)2018-04-02 17:36:00* Test Item Value Reference Range Interpretation Comments Lymphocytes # (Auto) (test code = 27699-3) 1.8 1.0-3.2 [facility] HospitalMonocytes # (Auto)2018-04-02 17:36:00* Test Item Value Reference Range Interpretation Comments Monocytes # (Auto) (test code = 742-7) 0.5 0.2-0.8 [facility] HospitalEosinophils # (Auto)2018-04-02 17:36:00* Test Item Value Reference Range Interpretation Comments Eosinophils # (Auto) (test code = 711-2) 0.6 0.0-0.4 H [facility] HospitalBasophils # (Auto)2018-04-02 17:36:00* Test Item Value Reference Range Interpretation Comments Basophils # (Auto) (test code = 704-7) 0.1 0.0-0.1 [facility] HospitalAbsolute Immature Granulocyte (auto 2018-04-02 17:36:00* Test Item Value Reference Range Interpretation Comments Absolute Immature Granulocyte (auto (briseyda t code = Absolute Immature Granulocyte (auto) 0.01 0-0.1 [facility] HospitalFree Thyroxine Maxyb0024-12-12 06:25:00* Test Item Value Reference Range Interpretation Comments Free Thyroxine Index (test code = 61647-3) 2.1305 1.4-3.8 [facility] HospitalThyroxine (T4)2018-02-24 06:25:00* Test Item Value Reference Range Interpretation Comments Thyroxine (T4) (test code = 3026-2) 7.81 4.5-10.9 Our current method for Total T4 is not recommended for use as the only marker fo r evaluating patients for thyroid disorders.[facility] HospitalTriiodothyronine (T3) Irultk6723-81-83 06:25:00* Test Item Value Reference Range Interpretation Comments Triiodothyronine (T3) Uptake (test code = 3050-2) 27.28 22.5 -37.0 [facility] HospitalThyroid Stimulating Hormone (TSH) 2018-02-24 06:25:00* Test Item Value Reference Range Interpretation Comments Thyroid Stimulating Hormone (TSH) (test code = 39639-4) 0.203 0.350-4.940 L [facility] HospitalFree Thyroxine Byfvv0943-24-88 06:25:00* Test Item Value Reference Range Interpretation Comments Free Thyroxine Index (test code = 88764-4) 2.1305 1.4-3.8 [facility] HospitalThyroxine (T4)2018-02-24 06:25:00* Test Item Value Reference Range Interpretation Comments Thyroxine (T4) (test code = 3026-2) 7.81 4.5-10.9 Our current method for Total T4 is not recommended for use as the only marker fo r evaluating patients for thyroid disorders.[facility] HospitalTriiodothyronine (T3) Dnlplc0287-47-17 06:25:00* Test Item Value Reference Range Interpretation Comments Triiodothyronine (T3) Uptake (test code = 3050-2) 27.28 22.5 -37.0 [facility] HospitalThyroid Stimulating Hormone (TSH) 2018-02-24 06:25:00* Test Item Value Reference Range Interpretation Comments Thyroid Stimulating Hormone (TSH) (test code = 21125-5) 0.203 0.350-4.940 L [facility] HospitalWhite Blood Mxvpq4221-76-48 06:09:00* Test Item Value Reference Range Interpretation Comments White Blood Count (test code = 6690-2) 2.05 4.8-10.8 L [facility] HospitalRed Blood Uzhrd0985-95-87 06:09:00* Test Item Value Reference Range Interpretation Comments Red Blood Count (test code = 789-8) 4.29 3.6-5.1 [facility] HospitalHemoglobin2018-06-12 06:09:00* Test Item Value Reference Range Interpretation Comments Hemoglobin (test code = 05879-5) 12.8 12.0-16.0 Results called to TINA SINGH RN at 0609 on 02/24/18 by Renaldo Wills. RB OK. [facility] HospitalHematocrit2018-06-12 06:09:00* Test Item Value Reference Range Interpretation Comments Hematocrit (test code = 4544-3) 35.8 34.2-44.1 [facility] HospitalMean Corpuscular Sxvcwh8584-17-97 06:09:00* Test Item Value Reference Range Interpretation Comments Mean Corpuscular Volume (test code = 787-2) 83.4 81-99 [facility] HospitalMean Corpuscular Qdahzpimty9758-75-07 06:09:00* Test Item Value Reference Range Interpretation Comments Mean Corpuscular Hemoglobin (test code = 785-6) 29.8 28-32 [facility] HospitalMean Corpuscular Hemoglobin Concent 2018-02-24 06:09:00* Test Item Value Reference Range Interpretation Comments Mean Corpuscular Hemoglobin Concent (test code = 786-4) 35.8 31-35 H [facility] HospitalRed Cell Distribution Ucdgf8211-64-76 06:09:00* Test Item Value Reference Range Interpretation Comments Red Cell Distribution Width (test code = 65351-2) 13.3 11.7 -14.4 [facility] HospitalPlatelet Dnjwb2271-52-42 06:09:00* Test Item Value Reference Range Interpretation Comments Platelet Count (test code = 777-3) 100 140-360 L [facility] HospitalNeutrophils (%) (Auto)2018-02-24 06:09:00 * Test Item Value Reference Range Interpretation Comments Neutrophils (%) (Auto) (test code = 70668-6) 74.1 38.7-80.0 [facility] HospitalLymphocytes (%) (Auto)2018-02-24 06:09:00 * Test Item Value Reference Range Interpretation Comments Lymphocytes (%) (Auto) (test code = 736-9) 23.4 18.0-39.1 [facility] HospitalMonocytes (%) (Auto)2018-02-24 06:09:00* Test Item Value Reference Range Interpretation Comments Monocytes (%) (Auto) (test code = 5905-5) 1.5 4.4-11.3 L [facility] HospitalEosinophils (%) (Auto)2018-02-24 06:09:00 * Test Item Value Reference Range Interpretation Comments Eosinophils (%) (Auto) (test code = 713-8) 0.0 0.0-6.0 [facility] HospitalBasophils (%) (Auto)2018-02-24 06:09:00* Test Item Value Reference Range Interpretation Comments Basophils (%) (Auto) (test code = 706-2) 0.5 0.0-1.0 [facility] HospitalIM GRANULOCYTES %2018-02-24 06:09:00* Test Item Value Reference Range Interpretation Comments IM GRANULOCYTES % (test code = IM GRANULOCYTES %) 0.5 0.0- 1.0 [facility] HospitalNeutrophils # (Auto)2018-02-24 06:09:00* Test Item Value Reference Range Interpretation Comments Neutrophils # (Auto) (test code = 751-8) 1.5 2.1-6.9 L [facility] HospitalLymphocytes # (Auto)2018-02-24 06:09:00* Test Item Value Reference Range Interpretation Comments Lymphocytes # (Auto) (test code = 33903-8) 0.5 1.0-3.2 L [facility] HospitalMonocytes # (Auto)2018-02-24 06:09:00* Test Item Value Reference Range Interpretation Comments Monocytes # (Auto) (test code = 742-7) 0.0 0.2-0.8 L [facility] HospitalEosinophils # (Auto)2018-02-24 06:09:00* Test Item Value Reference Range Interpretation Comments Eosinophils # (Auto) (test code = 711-2) 0.0 0.0-0.4 [facility] HospitalBasophils # (Auto)2018-02-24 06:09:00* Test Item Value Reference Range Interpretation Comments Basophils # (Auto) (test code = 704-7) 0.0 0.0-0.1 [facility] HospitalAbsolute Immature Granulocyte (auto 2018-02-24 06:09:00* Test Item Value Reference Range Interpretation Comments Absolute Immature Granulocyte (auto (briseyda t code = Absolute Immature Granulocyte (auto) 0.01 0-0.1 [facility] Districtodium Uuzjq1356-91-92 06:06:00* Test Item Value Reference Range Interpretation Comments Sodium Level (test code = 2951-2) 136 136-145 [facility] HospitalPotassium Fdxfa2875-31-58 06:06:00* Test Item Value Reference Range Interpretation Comments Potassium Level (test code = 2823-3) 4.7 3.5-5.1 [facility] HospitalChloride Nzknq4253-47-33 06:06:00* Test Item Value Reference Range Interpretation Comments Chloride Level (test code = 2075-0) 104 98-107 [facility] HospitalCarbon Dioxide Zsjvc7809-45-91 06:06:00* Test Item Value Reference Range Interpretation Comments Carbon Dioxide Level (test code = 2028-9) 25 22-29 [facility] HospitalAnion Hwc3763-34-83 06:06:00* Test Item Value Reference Range Interpretation Comments Anion Gap (test code = 10610-4) 11.7 8-16 [facility] HospitalBlood Urea Egzjcgra8117-59-44 06:06:00* Test Item Value Reference Range Interpretation Comments Blood Urea Nitrogen (test code = 3094-0) 17 7-26 [facility] HospitalCreatinine2018-06-12 06:06:00* Test Item Value Reference Range Interpretation Comments Creatinine (test code = 2160-0) 0.73 0.57-1.11 [facility] HospitalBUN/Creatinine Dodkk7317-10-46 06:06:00* Test Item Value Reference Range Interpretation Comments BUN/Creatinine Ratio (test code = 3097-3) 23 6-25 [facility] HospitalEstimat Glomerular Filtration Rate 2018-02-24 06:06:00* Test Item Value Reference Range Interpretation Comments Estimat Glomerular Filtration Rate (test code = 97780-4) 60- >60 Ranges were taken from the National Kidney Disease Education Program and the [facility] literature.Reference ranges:60 or greater: Sxvsla50-74 ( for 3 consecutive months): Chronic kidney disease 15 or less: Kidney failureCHI [facility]o [facility] HospitalGlucose Voazi0758-08-39 06:06:00* Test Item Value Reference Range Interpretation Comments Glucose Level (test code = JXV1111) 285 74-118 H [facility] HospitalCalcium Vksul9284-75-15 06:06:00* Test Item Value Reference Range Interpretation Comments Calcium Level (test code = 42050-1) 9.6 8.4-10.2 [facility] HospitalTotal Irdsednin2244-32-13 06:06:00* Test Item Value Reference Range Interpretation Comments Total Bilirubin (test code = 1975-2) 1.2 0.2-1.2 [facility] HospitalAspartate Amino Transf (AST/SGOT) 2018-02-24 06:06:00* Test Item Value Reference Range Interpretation Comments Aspartate Amino Transf (AST/SGOT) (test code = Aspartate Amino Transf (AST/SGOT)) 26 5-34 [facility] HospitalAlanine Aminotransferase (ALT/SGPT) 2018-02-24 06:06:00* Test Item Value Reference Range Interpretation Comments Alanine Aminotransferase (ALT/SGPT) (test code = 1742-6) 23 0-55 [facility] HospitalTotal Vzzmzhm0488-40-05 06:06:00* Test Item Value Reference Range Interpretation Comments Total Protein (test code = 2885-2) 6.8 6.5-8.1 [facility] HospitalAlbumin2018-06-12 06:06:00* Test Item Value Reference Range Interpretation Comments Albumin (test code = 1751-7) 3.4 3.5-5.0 L [facility] HospitalGlobulin2018-06-12 06:06:00* Test Item Value Reference Range Interpretation Comments Globulin (test code = 07633-9) 3.4 2.3-3.5 [facility] HospitalAlbumin/Globulin Govqy4120-92-81 06:06:00 * Test Item Value Reference Range Interpretation Comments Albumin/Globulin Ratio (test code = 1759-0) 1.0 0.8-2.0 [facility] HospitalAlkaline Guordypgxyj3769-10-03 06:06:00* Test Item Value Reference Range Interpretation Comments Alkaline Phosphatase (test code = 6768-6) 176 40-150 H [facility] HospitalTriglycerides Bfggj8663-95-88 06:06:00* Test Item Value Reference Range Interpretation Comments Triglycerides Level (test code = 2571-8) 47 0-149 [facility] HospitalCholesterol Aawjj9065-08-94 06:06:00* Test Item Value Reference Range Interpretation Comments Cholesterol Level (test code = 2093-3) 139 0-199 Less than 200 mg/dL Low Upgc815 - 239 mg/dL Borderline Ykpc687 m g/dl and greater High Risk [facility] HospitalLDL Acyeofhbjrk4151-96-30 06:06:00* Test Item Value Reference Range Interpretation Comments LDL Cholesterol (test code = 2089-1) 84 60-130 [facility] Byqqjxhvxsi9922-54-73 06:06:00* Test Item Value Reference Range Interpretation Comments HDL Cholesterol (test code = 2085-9) 46 40-60 [facility] HospitalCholesterol/HDL Rayhh4634-75-69 06:06:00 * Test Item Value Reference Range Interpretation Comments Cholesterol/HDL Ratio (test code = 9830-1) 3.0 3.0-3.6 [facility] HospitalTriglycerides Eilil1130-45-03 06:06:00* Test Item Value Reference Range Interpretation Comments Triglycerides Level (test code = 2571-8) 47 0-149 [facility] HospitalCholesterol Ydquj0130-13-96 06:06:00* Test Item Value Reference Range Interpretation Comments Cholesterol Level (test code = 2093-3) 139 0-199 Less than 200 mg/dL Low Fsmp810 - 239 mg/dL Borderline Zfzd966 m g/dl and greater High Risk [facility] HospitalLDL Mvgfjmxzeze2321-36-32 06:06:00* Test Item Value Reference Range Interpretation Comments LDL Cholesterol (test code = 2089-1) 84 60-130 [facility] Elfgqslylzy2393-20-11 06:06:00* Test Item Value Reference Range Interpretation Comments HDL Cholesterol (test code = 2085-9) 46 40-60 [facility] HospitalCholesterol/HDL Cslih5599-38-52 06:06:00 * Test Item Value Reference Range Interpretation Comments Cholesterol/HDL Ratio (test code = 9830-1) 3.0 3.0-3.6 [facility] HospitalCreatine Uemzvg0958-63-96 04:15:00* Test Item Value Reference Range Interpretation Comments Creatine Kinase (test code = 2157-6) 40 29-168 [facility] HospitalCreatine Kinase DG5478-21-51 04:15:00* Test Item Value Reference Range Interpretation Comments Creatine Kinase MB (test code = 25875-3) 1.90 0-5.0 [facility] HospitalTroponin K3252-97-47 04:15:00* Test Item Value Reference Range Interpretation Comments Troponin I (test code = KIO1154) 0.005 0-0.300 [facility] HospitalMagnesium Iollc6579-64-20 19:28:00* Test Item Value Reference Range Interpretation Comments Magnesium Level (test code = 26436-2) 1.5 1.3-2.1 [facility] HospitalB-Type Natriuretic Jorypnt0478-65-70 19:28:00* Test Item Value Reference Range Interpretation Comments B-Type Natriuretic Peptide (test code = 02918-6) 74.8 0-100 [facility] Ogkuo6433-97-33 19:28:00* Test Item Value Reference Range Interpretation Comments Magnesium Level (test code = 34042-0) 1.5 1.3-2.1 [facility] HospitalProthrombin Rxla9779-76-51 19:19:00* Test Item Value Reference Range Interpretation Comments Prothrombin Time (test code = 5902-2) 13.3 11.9-14.5 [facility] HospitalProthromb Time International Ratio 2018-02-23 19:19:00* Test Item Value Reference Range Interpretation Comments Prothromb Time International Ratio (test code = 6301-6) 1.09 Oral Anticoagulant Therapy INR Values:1. Low Intensity Therapy 1.5 - 2.02 . Moderate Intensity Therapy 2.0 - 3.03. High Intensity Therapy(1) 2.5 - 3. 54. High Intensity Therapy(2) 3.0 - 4.05. Panic Value INR > 5.0 [facility] HospitalActivated Partial Thromboplast Time 2018-02-23 19:19:00* Test Item Value Reference Range Interpretation Comments Activated Partial Thromboplast Time (test code = 50263-8) 29.7 23.8-35.5 [facility] HospitalProthrombin Qbps2402-16-71 19:19:00* Test Item Value Reference Range Interpretation Comments Prothrombin Time (test code = 5902-2) 13.3 11.9-14.5 [facility] HospitalProthromb Time International Ratio 2018-02-23 19:19:00* Test Item Value Reference Range Interpretation Comments Prothromb Time International Ratio (test code = 6301-6) 1.09 Oral Anticoagulant Therapy INR Values:1. Low Intensity Therapy 1.5 - 2.02 . Moderate Intensity Therapy 2.0 - 3.03. High Intensity Therapy(1) 2.5 - 3. 54. High Intensity Therapy(2) 3.0 - 4.05. Panic Value INR > 5.0 [facility] HospitalActivated Partial Thromboplast Time 2018-02-23 19:19:00* Test Item Value Reference Range Interpretation Comments Activated Partial Thromboplast Time (test code = 18548-8) 29.7 23.8-35.5 [facility] HospitalCT BRAIN IF3535-07-21 18:24:00 [facility] [address] [place] [address] Patient Name: NILSON FORTE MR #: [id number] : 1950 Age/Sex: 67/F Req #: [id number] Adm Physician: Ordered by: TANIKA KEANE MD Report #: [id number] Location: Room /Bed: Procedure: [id number] CT/CT BRAIN WO Exam Date: 02/23/18 Exam Time: 1750 REPORT STATUS: Signed History:Syncope Comparison studies:None Technique: Axial images wer e obtained from the skull base to the [...] TO: TANIKA KEANE MD CT CERVICAL SPINE CQ2092-76-19 18:24:00 [place] [address] Patient Name: NILSON FORTE MR #: [id number] : 1950 Age/Sex: 67/F Req #: [id number] Adm Physician: Ordered by: TANIKA KEANE MD Report #: [id number] Location: Room /Bed: Procedure: [id number] CT/CT CERVICAL SPINE WENDY Wheeler xam Date: [...] 1. No acute abnormalities. 2. Cannot adequately evaluat e for ligament, spinal cord and or vascular abnormalities. 3. Degenerati ve changes as described. Signed by: Dr. Jai Donohue M.D. on 02/24/20 7:34 PM Dictated By: JAI DONOHUE MD, MD 33 Transcribed By: ROSA MARIA on 08/02 COPY TO: TANIKA KEANE MD CHEST SINGLE (PORTABLE) 2018-02-23 18:22:00 [place] [address] Patient Name: NILSON FORTE MR #: [id number] : 1950 Age/Sex: 67/F Req #: [id number] Adm Physician: Ordered by: TANIKA KEANE MD Report #: [id number] Location: ER Room/Bed: Procedure: [id number] DX/CHEST SINGLE (PORTABLE) Exam Date: 02/23/18 Exam Time: [address] ATUS: Signed PROCEDURE: A single AP view of the chest. COMPARISON: [facility] x-ray 11/17/2017. INDICATIONS: chest pains, copd, coughing [...] by: Deonte Constantino M.D. on 02/23/2018 at 18:2 2 Dictated By: DEONTE CONSTANTINO MD 21 COPY TO: TANIKA KEANE MD Blood Txpnthe3624-67-46 17:00:00* Test Item Value Reference Range Interpretation Comments Blood Culture (test code = 08831159) NO GROWTH AFTER 5 DAYS, FINAL REPORT [facility] HospitalBlood Lafxhio0270-74-11 17:00:00* Test Item Value Reference Range Interpretation Comments Blood Culture (test code = 19316180) NO GROWTH AFTER 5 DAYS, FINAL REPORT [facility] HospitalInfluenza Virus Types A,B Antigen 2017-11-17 18:53:00* Test Item Value Reference Range Interpretation Comments Influenza Virus Types A,B Antigen (test code = 46994-9) NEGATIVE NEGATIVE [facility] HospitalInfluenza Virus Types A,B Antigen 2017-11-17 18:53:00* Test Item Value Reference Range Interpretation Comments Influenza Virus Types A,B Antigen (test code = 75028-3) NEGATIVE NEGATIVE [facility] HospitalInfluenza Virus Types A,B Antigen 2017-11-17 18:53:00* Test Item Value Reference Range Interpretation Comments Influenza Virus Types A,B Antigen (test code = 05764-7) NEGATIVE NEGATIVE [facility] HospitalUrine LHZ6728-86-22 18:28:00* Test Item Value Reference Range Interpretation Comments Urine WBC (test code = 5821-4) NONE 0-5 [facility] HospitalUrine TQI1428-75-31 18:28:00* Test Item Value Reference Range Interpretation Comments Urine RBC (test code = 88532-3) NONE 0-5 [facility] HospitalUrine Tzaowsug2035-70-44 18:28:00* Test Item Value Reference Range Interpretation Comments Urine Bacteria (test code = 71576-9) FEW NONE [facility] HospitalUrine Epithelial Oqowx8192-75-00 18:28:00 * Test Item Value Reference Range Interpretation Comments Urine Epithelial Cells (test code = 11240-7) MODERATE NONE [facility] HospitalUrine LCS7307-41-27 18:28:00* Test Item Value Reference Range Interpretation Comments Urine WBC (test code = 5821-4) NONE 0-5 [facility] HospitalUrine NOJ5779-73-68 18:28:00* Test Item Value Reference Range Interpretation Comments Urine RBC (test code = 62379-6) NONE 0-5 [facility] HospitalUrine Ssjfkhxt6931-20-63 18:28:00* Test Item Value Reference Range Interpretation Comments Urine Bacteria (test code = 18324-9) FEW NONE [facility] HospitalUrine Epithelial Aiaim7951-98-68 18:28:00 * Test Item Value Reference Range Interpretation Comments Urine Epithelial Cells (test code = 36331-9) MODERATE NONE [facility] HospitalUrine IFX7812-52-33 18:28:00* Test Item Value Reference Range Interpretation Comments Urine WBC (test code = 5821-4) NONE 0-5 [facility] HospitalUrine VPE7881-34-54 18:28:00* Test Item Value Reference Range Interpretation Comments Urine RBC (test code = 64813-6) NONE 0-5 [facility] HospitalUrine Vzcjqefv0116-08-62 18:28:00* Test Item Value Reference Range Interpretation Comments Urine Bacteria (test code = 49568-4) FEW NONE [facility] HospitalUrine Epithelial Ayjgi5324-96-33 18:28:00 * Test Item Value Reference Range Interpretation Comments Urine Epithelial Cells (test code = 79600-5) MODERATE NONE [facility] HospitalUrine Rnaku6153-28-70 18:15:00* Test Item Value Reference Range Interpretation Comments Urine Color (test code = 5778-6) YELLOW YELLOW [facility] HospitalUrine Moapjfh7873-94-51 18:15:00* Test Item Value Reference Range Interpretation Comments Urine Clarity (test code = 44904-6) CLEAR CLEAR [facility] HospitalUrine Specific Jrwkvcd3649-64-02 18:15:00 * Test Item Value Reference Range Interpretation Comments Urine Specific [place] (test code = 5811-5) 1.015 1.010-1.02 5 [facility] HospitalUrine pL7630-47-87 18:15:00* Test Item Value Reference Range Interpretation Comments Urine pH (test code = 90785-1) 8 5-7 H [facility] HospitalUrine Leukocyte Wcxeifbp1706-60-74 18:15:00* Test Item Value Reference Range Interpretation Comments Urine Leukocyte Esterase (test code = 5799-2) NEGATIVE NEGATIVE [facility] HospitalUrine Ozdgpbk7781-04-31 18:15:00* Test Item Value Reference Range Interpretation Comments Urine Nitrite (test code = 01760-4) NEGATIVE NEGATIVE [facility] HospitalUrine Cqwykoj3786-41-54 18:15:00* Test Item Value Reference Range Interpretation Comments Urine Protein (test code = 5804-0) NEGATIVE NEGATIVE [facility] HospitalUrine Glucose (UA)2017-11-17 18:15:00* Test Item Value Reference Range Interpretation Comments Urine Glucose (UA) (test code = 2349-9) NEGATIVE NEGATIVE [facility] HospitalUrine Tejgwmo0759-31-56 18:15:00* Test Item Value Reference Range Interpretation Comments Urine Ketones (test code = 57040-0) NEGATIVE NEGATIVE [facility] HospitalUrine Mqqgxtxdjnzr6444-35-15 18:15:00* Test Item Value Reference Range Interpretation Comments Urine Urobilinogen (test code = 59519-5) 0.2 0.2-1 [facility] HospitalUrine Bjnunvkfw6876-07-61 18:15:00* Test Item Value Reference Range Interpretation Comments Urine Bilirubin (test code = 1978-6) NEGATIVE NEGATIVE [facility] HospitalUrine Mzxnt3199-39-57 18:15:00* Test Item Value Reference Range Interpretation Comments Urine Blood (test code = 51528-4) NEGATIVE NEGATIVE [facility] HospitalUrine Awtrr2069-29-49 18:15:00* Test Item Value Reference Range Interpretation Comments Urine Color (test code = 5778-6) YELLOW YELLOW [facility] HospitalUrine Nmyicnv6780-59-01 18:15:00* Test Item Value Reference Range Interpretation Comments Urine Clarity (test code = 00814-9) CLEAR CLEAR [facility] HospitalUrine Specific Tczlgme8888-61-73 18:15:00 * Test Item Value Reference Range Interpretation Comments Urine Specific [place] (test code = 5811-5) 1.015 1.010-1.02 5 [facility] HospitalUrine pY9187-90-79 18:15:00* Test Item Value Reference Range Interpretation Comments Urine pH (test code = 51494-2) 8 5-7 H [facility] HospitalUrine Leukocyte Ccfctyai9923-05-94 18:15:00* Test Item Value Reference Range Interpretation Comments Urine Leukocyte Esterase (test code = 5799-2) NEGATIVE NEGATIVE [facility] HospitalUrine Lcsqoeb4387-00-62 18:15:00* Test Item Value Reference Range Interpretation Comments Urine Nitrite (test code = 74105-3) NEGATIVE NEGATIVE [facility] HospitalUrine Ziaeltv0996-70-90 18:15:00* Test Item Value Reference Range Interpretation Comments Urine Protein (test code = 5804-0) NEGATIVE NEGATIVE [facility] HospitalUrine Glucose (UA)2017-11-17 18:15:00* Test Item Value Reference Range Interpretation Comments Urine Glucose (UA) (test code = 2349-9) NEGATIVE NEGATIVE [facility] Srxthzw3185-43-14 18:15:00* Test Item Value Reference Range Interpretation Comments Urine Ketones (test code = 29337-4) NEGATIVE NEGATIVE [facility] HospitalUrine Thhefrwniutb7103-10-66 18:15:00* Test Item Value Reference Range Interpretation Comments Urine Urobilinogen (test code = 19813-4) 0.2 0.2-1 [facility] HospitalUrine Sssutvpbd7487-87-07 18:15:00* Test Item Value Reference Range Interpretation Comments Urine Bilirubin (test code = 1978-6) NEGATIVE NEGATIVE [facility] Qdkxg4720-22-20 18:15:00* Test Item Value Reference Range Interpretation Comments Urine Blood (test code = 85295-3) NEGATIVE NEGATIVE [facility] Mzkvl6441-78-39 18:15:00* Test Item Value Reference Range Interpretation Comments Urine Color (test code = 5778-6) YELLOW YELLOW [facility] HospitalUrine Zmbnyoe4769-32-27 18:15:00* Test Item Value Reference Range Interpretation Comments Urine Clarity (test code = 39722-5) CLEAR CLEAR [facility] HospitalUrine Specific Lhlybeq4736-26-48 18:15:00 * Test Item Value Reference Range Interpretation Comments Urine Specific [place] (test code = 5811-5) 1.015 1.010-1.02 5 [facility] HospitalUrine pK1518-77-47 18:15:00* Test Item Value Reference Range Interpretation Comments Urine pH (test code = 44765-8) 8 5-7 H [facility] HospitalUrine Leukocyte Irrapzhm5183-50-75 18:15:00* Test Item Value Reference Range Interpretation Comments Urine Leukocyte Esterase (test code = 5799-2) NEGATIVE NEGATIVE [facility] HospitalUrine Hwwkvso4152-79-24 18:15:00* Test Item Value Reference Range Interpretation Comments Urine Nitrite (test code = 15736-7) NEGATIVE NEGATIVE [facility] HospitalUrine Smwscio4743-35-77 18:15:00* Test Item Value Reference Range Interpretation Comments Urine Protein (test code = 5804-0) NEGATIVE NEGATIVE [facility] HospitalUrine Glucose (UA)2017-11-17 18:15:00* Test Item Value Reference Range Interpretation Comments Urine Glucose (UA) (test code = 2349-9) NEGATIVE NEGATIVE [facility] HospitalUrine Rlfjzix7290-75-58 18:15:00* Test Item Value Reference Range Interpretation Comments Urine Ketones (test code = 89137-6) NEGATIVE NEGATIVE [facility] HospitalUrine Obggyhyxhujf3252-73-58 18:15:00* Test Item Value Reference Range Interpretation Comments Urine Urobilinogen (test code = 01085-0) 0.2 0.2-1 [facility] HospitalUrine Akfqgdmrz7872-34-84 18:15:00* Test Item Value Reference Range Interpretation Comments Urine Bilirubin (test code = 1978-6) NEGATIVE NEGATIVE [facility] HospitalUrine Pdviw0644-50-90 18:15:00* Test Item Value Reference Range Interpretation Comments Urine Blood (test code = 30143-2) NEGATIVE NEGATIVE [facility] HospitalCreatine Kinase PN0150-88-78 17:40:00* Test Item Value Reference Range Interpretation Comments Creatine Kinase MB (test code = 99538-9) 1.80 0-5.0 [facility] HospitalTroponin C7403-52-50 17:40:00* Test Item Value Reference Range Interpretation Comments Troponin I (test code = ADC3115) 0.005 0-0.300 [facility] HospitalThyroid Stimulating Hormone (TSH) 2017-11-17 17:40:00* Test Item Value Reference Range Interpretation Comments Thyroid Stimulating Hormone (TSH) (test code = 96065-2) 0.737 0.350-4.940 [facility] HospitalB-Type Natriuretic Czzptgy1460-52-14 17:21:00* Test Item Value Reference Range Interpretation Comments B-Type Natriuretic Peptide (test code = 12382-2) 153.0 0-100 [facility] Districtodium Ttzrs4567-16-63 17:17:00* Test Item Value Reference Range Interpretation Comments Sodium Level (test code = 2951-2) 140 136-145 [facility] HospitalPotassium Klrpr9785-17-24 17:17:00* Test Item Value Reference Range Interpretation Comments Potassium Level (test code = 2823-3) 4.0 3.5-5.1 [facility] HospitalChloride Jdjhl3439-50-69 17:17:00* Test Item Value Reference Range Interpretation Comments Chloride Level (test code = 2075-0) 105 98-107 [facility] HospitalCarbon Dioxide Bdmok1199-96-91 17:17:00* Test Item Value Reference Range Interpretation Comments Carbon Dioxide Level (test code = 2028-9) 25 22-29 [facility] HospitalAnion Wbn5471-44-15 17:17:00* Test Item Value Reference Range Interpretation Comments Anion Gap (test code = 48323-8) 14.0 8-16 [facility] HospitalBlood Urea Eystuvuq8261-83-75 17:17:00* Test Item Value Reference Range Interpretation Comments Blood Urea Nitrogen (test code = 3094-0) 10 7-26 [facility] HospitalCreatinine2018-03-05 17:17:00* Test Item Value Reference Range Interpretation Comments Creatinine (test code = 2160-0) 0.67 0.57-1.11 [facility] HospitalBUN/Creatinine Gveqo8797-56-54 17:17:00* Test Item Value Reference Range Interpretation Comments BUN/Creatinine Ratio (test code = 3097-3) 15 6-25 [facility] HospitalEstimat Glomerular Filtration Rate 2017-11-17 17:17:00* Test Item Value Reference Range Interpretation Comments Estimat Glomerular Filtration Rate (test code = 24688-5) 60- >60 Ranges were taken from the National Kidney Disease Education Program and the [facility] literature.Reference ranges:60 or greater: Ujglqc00-30 ( for 3 consecutive months): Chronic kidney disease 15 or less: Kidney failureHouston [facility] The Woodlands HospitalGlucose Unmiq4371-98-30 17:17:00* Test Item Value Reference Range Interpretation Comments Glucose Level (test code = GBI4065) 136 74-118 H [facility] HospitalCalcium Wnnlf1674-13-41 17:17:00* Test Item Value Reference Range Interpretation Comments Calcium Level (test code = 22849-9) 9.2 8.4-10.2 [facility] HospitalMagnesium Towan8818-43-73 17:17:00* Test Item Value Reference Range Interpretation Comments Magnesium Level (test code = 05270-5) 1.4 1.3-2.1 [facility] HospitalTotal Seuikersx3945-88-61 17:17:00* Test Item Value Reference Range Interpretation Comments Total Bilirubin (test code = 1975-2) 0.7 0.2-1.2 [facility] HospitalAspartate Amino Transf (AST/SGOT) 2017-11-17 17:17:00* Test Item Value Reference Range Interpretation Comments Aspartate Amino Transf (AST/SGOT) (test code = Aspartate Amino Transf (AST/SGOT)) 25 5-34 [facility] HospitalAlanine Aminotransferase (ALT/SGPT) 2017-11-17 17:17:00* Test Item Value Reference Range Interpretation Comments Alanine Aminotransferase (ALT/SGPT) (test code = 1742-6) 32 0-55 [facility] Kjizxcc6707-81-63 17:17:00* Test Item Value Reference Range Interpretation Comments Total Protein (test code = 2885-2) 7.3 6.5-8.1 [facility] HospitalAlbumin2018-03-05 17:17:00* Test Item Value Reference Range Interpretation Comments Albumin (test code = 1751-7) 4.0 3.5-5.0 [facility] HospitalGlobulin2018-03-05 17:17:00* Test Item Value Reference Range Interpretation Comments Globulin (test code = 97315-9) 3.3 2.3-3.5 [facility] HospitalAlbumin/Globulin Malps9097-05-79 17:17:00 * Test Item Value Reference Range Interpretation Comments Albumin/Globulin Ratio (test code = 1759-0) 1.2 0.8-2.0 [facility]Alkaline Hvwuaxhdcoi5148-59-10 17:17:00* Test Item Value Reference Range Interpretation Comments Alkaline Phosphatase (test code = 6768-6) 118 40-150 [facility] HospitalCreatine Knuhun7428-97-08 17:17:00* Test Item Value Reference Range Interpretation Comments Creatine Kinase (test code = 2157-6) 75 29-168 [facility] HospitalLipase2018-03-05 17:17:00* Test Item Value Reference Range Interpretation Comments Lipase (test code = 3040-3) 31 8-78 [facility]Lipase2018-03-05 17:17:00* Test Item Value Reference Range Interpretation Comments Lipase (test code = 3040-3) 31 878 [facility]Lipase2018-03-05 17:17:00* Test Item Value Reference Range Interpretation Comments Lipase (test code = 3040-3) 31 878 [facility] HospitalLactic Acid Ktlvj5755-10-89 17:09:00* Test Item Value Reference Range Interpretation Comments Lactic Acid Level (test code = Lactic Acid Level) 17.4 4.5- 19.8 [facility] HospitalLactic Acid Ubbse8481-41-86 17:09:00* Test Item Value Reference Range Interpretation Comments Lactic Acid Level (test code = Lactic Acid Level) 17.4 4.5- 19.8 [facility] HospitalLactic Acid Tmjwp8550-98-39 17:09:00* Test Item Value Reference Range Interpretation Comments Lactic Acid Level (test code = Lactic Acid Level) 17.4 4.5- 19.8 [facility] HospitalWhite Blood Nutwq1320-03-99 16:59:00* Test Item Value Reference Range Interpretation Comments White Blood Count (test code = 6690-2) 7.16 4.8-10.8 [facility] HospitalRed Blood Dgchi9298-82-01 16:59:00* Test Item Value Reference Range Interpretation Comments Red Blood Count (test code = 789-8) 4.92 3.6-5.1 [facility] HospitalHemoglobin2018-03-05 16:59:00* Test Item Value Reference Range Interpretation Comments Hemoglobin (test code = 39218-6) 14.6 12.0-16.0 [facility] HospitalHematocrit2018-03-05 16:59:00* Test Item Value Reference Range Interpretation Comments Hematocrit (test code = 4544-3) 40.9 34.2-44.1 [facility] HospitalMean Corpuscular Zgwqkx3400-86-78 16:59:00* Test Item Value Reference Range Interpretation Comments Mean Corpuscular Volume (test code = 787-2) 83.1 81-99 [facility] HospitalMean Corpuscular Fbfbzqlqot3515-84-14 16:59:00* Test Item Value Reference Range Interpretation Comments Mean Corpuscular Hemoglobin (test code = 785-6) 29.7 28-32 [facility] HospitalMean Corpuscular Hemoglobin Concent 2017-11-17 16:59:00* Test Item Value Reference Range Interpretation Comments Mean Corpuscular Hemoglobin Concent (test code = 786-4) 35.7 31-35 H [facility] HospitalRed Cell Distribution Djddf1814-63-19 16:59:00* Test Item Value Reference Range Interpretation Comments Red Cell Distribution Width (test code = 35429-5) 14.6 11.7 -14.4 H [facility] HospitalPlatelet Vvrfx7049-47-59 16:59:00* Test Item Value Reference Range Interpretation Comments Platelet Count (test code = 777-3) 113 140-360 L [facility] HospitalNeutrophils (%) (Auto)2017-11-17 16:59:00 * Test Item Value Reference Range Interpretation Comments Neutrophils (%) (Auto) (test code = 96846-6) 68.6 38.7-80.0 [facility] HospitalLymphocytes (%) (Auto)2017-11-17 16:59:00 * Test Item Value Reference Range Interpretation Comments Lymphocytes (%) (Auto) (test code = 736-9) 18.9 18.0-39.1 [facility] HospitalMonocytes (%) (Auto)2017-11-17 16:59:00* Test Item Value Reference Range Interpretation Comments Monocytes (%) (Auto) (test code = 5905-5) 5.3 4.4-11.3 [facility] HospitalEosinophils (%) (Auto)2017-11-17 16:59:00 * Test Item Value Reference Range Interpretation Comments Eosinophils (%) (Auto) (test code = 713-8) 5.9 0.0-6.0 [facility] HospitalBasophils (%) (Auto)2017-11-17 16:59:00* Test Item Value Reference Range Interpretation Comments Basophils (%) (Auto) (test code = 706-2) 0.7 0.0-1.0 [facility] HospitalIM GRANULOCYTES %2017-11-17 16:59:00* Test Item Value Reference Range Interpretation Comments IM GRANULOCYTES % (test code = IM GRANULOCYTES %) 0.6 0.0- 1.0 [facility] HospitalNeutrophils # (Auto)2017-11-17 16:59:00* Test Item Value Reference Range Interpretation Comments Neutrophils # (Auto) (test code = 751-8) 4.9 2.1-6.9 [facility] HospitalLymphocytes # (Auto)2017-11-17 16:59:00* Test Item Value Reference Range Interpretation Comments Lymphocytes # (Auto) (test code = 05721-0) 1.4 1.0-3.2 [facility] HospitalMonocytes # (Auto)2017-11-17 16:59:00* Test Item Value Reference Range Interpretation Comments Monocytes # (Auto) (test code = 742-7) 0.4 0.2-0.8 [facility] HospitalEosinophils # (Auto)2017-11-17 16:59:00* Test Item Value Reference Range Interpretation Comments Eosinophils # (Auto) (test code = 711-2) 0.4 0.0-0.4 [facility] HospitalBasophils # (Auto)2017-11-17 16:59:00* Test Item Value Reference Range Interpretation Comments Basophils # (Auto) (test code = 704-7) 0.1 0.0-0.1 [facility] HospitalAbsolute Immature Granulocyte (auto 2017-11-17 16:59:00* Test Item Value Reference Range Interpretation Comments Absolute Immature Granulocyte (auto (briseyda t code = Absolute Immature Granulocyte (auto) 0.04 0-0.1 [facility] HospitalCHEST SINGLE (PORTABLE) [facility] [address] [place] [address] Patient Name: NILSON FORTE MR #: [id number] : 1950 Age/Sex: 67/F Req #: [id number] Adm Physician: Ordered by: [employer] S[employer]IOR [employer]LECTRONICS TECHNICIAN Report #: [id number] Location: ER Room/Bed: Procedure: [id number] DX/CHEST SINGLE (PORTABLE) Exam Date: Exam Time: REPORT STATUS: Signed PROCEDURE: A single AP view of the chest. COMPARISON: None. MAGALYS CATIONS: SHORTNESS OF BREATH FINDINGS: Lines/tubes: None. L ungs: The lungs are well inflated. There is mildly increased interstitial carolyn ng markings. Pleura: There is no significant [...] on 11/17/17 1640 COPY TO: [employer] SENIOR ELECTRONICS TECHNICIAN
--- OUTSIDE RECORDS SUMMARY | 2020-08-03 17:17 | XMS REPORT | Clinical Summary ---
Author Author NERY GopeersSaint Alphons[facility]SAICC[facility] Address Unknown Phone Unavailable Care Team Providers Care Clay Molder Name Role Phone PCP Unavailable Allergies Comments [...] Effective Phone Address Plan / Dates Group [facility] [id number] 2016-P MEDICARE resent ADV [id number] Advance Directives For more information, please contact: [phone] Date Inactivated Comments Code Status Date Activated 04/27/2018 3:40 PM Full Code 04/27/2018 7:57 AM This code status was determined by: Patient
[2020-08-03 17:31] VITALS: BP 129/61
[2020-08-03 17:37] VITALS: BP 129/61
[2020-08-03 17:46] VITALS: BP 129/61
[2020-08-03] MEDS ORDERED: SODIUM CHLORIDE 0.9% 250ML 250 ML ONE (18:06)
[2020-08-03] MEDS ORDERED: ALBUTEROL/IPRATROPIUM 3 ML NEB NEB SCH (19:00)
--- NOTE | 2020-08-03 19:06 | NUR ---
PT RESTING ON BED BED SIDE REPORT GIVEN TO ONCOMING NURSE
[2020-08-03] MEDS ORDERED: TEMAZEPAM 15 MG CAP PO SCH (19:30)
[2020-08-03] MEDS ORDERED: LORAZEPAM 0.5 MG TAB PO PRN (19:30)
[2020-08-03] MEDS ORDERED: ALBUTEROL SULFATE HFA 8GM INHALATION AEROSOL INH SCH (19:30)
[2020-08-03] MEDS: ALBUTEROL/IPRATROPIUM 3 ML NEB NEB SCH (19:35)
[2020-08-03 20:00] VITALS: BP 112/66
[2020-08-03] MEDS: DOXYCYCLINE 100MG/NS 100ML 100 ML IV SCH (20:00)
[2020-08-03] MEDS ORDERED: METHYLPREDNISOLONE SOD SUCC 125 MG/2ML VIAL IV SCH (21:00)
[2020-08-03] MEDS ORDERED: TEMAZEPAM 15 MG CAP PO PRN (21:00)
[2020-08-03] MEDS: METHYLPREDNISOLONE SOD SUCC 125 MG/2ML VIAL IV SCH (21:00)
--- NOTE | 2020-08-03 22:12 | NUR ---
PT RESTING COMFORTABLY IN BED NO SIGNS OF DISTRESS NO COMPLAINTS AT THIS TIME
[2020-08-03 22:13] VITALS: BP 112/66
[2020-08-04] VITALS (7 sets, daily range): BP systolic 105–130; BP diastolic 70–90
[2020-08-04] MEDS: ALBUTEROL/IPRATROPIUM 3 ML NEB NEB SCH ×3 (01:10→20:30)
--- NOTE | 2020-08-04 01:31 | NUR ---
PT RESTING COMFORTABLY IN BED NO SIGNS OF DISTRESS NO COMPLAINTS AT THIS TIME
[2020-08-04] MEDS: METHYLPREDNISOLONE SOD SUCC 125 MG/2ML VIAL IV SCH ×2 (08:46→20:34)
[2020-08-04] MEDS: DOXYCYCLINE 100MG/NS 100ML 100 ML IV SCH ×2 (08:46→20:34)
--- NOTE | 2020-08-04 09:52 | Consultation ---
DATE OF CONSULTATION: Pulmonary Critical Care Consultation CHIEF COMPLAINT: Wheezing, cough and dyspnea. HISTORY OF PRESENT ILLNESS: The patient is a 69-year-old woman. She has a history of severe COPD. She uses nebulizers at home. She has required steroids over the past week as an outpatient. She came to the office yesterday with worsening dyspnea and wheezing for several days. She noted a cough. She was tachypneic with a saturation of 79%. She required transfer to the ER. She had received some Solu-Medrol and additional antibiotics. She also received bronchodilators. PAST SURGICAL HISTORY: 1. Status post hysterectomy. 2. Status post total right knee arthroplasty. 3. History of back surgery. 4. Status post partial colectomy. 5. Status post cholecystectomy. 6. Status post tonsillectomy. PAST MEDICAL HISTORY: 1. COPD and emphysema. 2. Degenerative disease of the lumbosacral spine. 3. 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 4. Gastroesophageal reflux. SOCIAL HISTORY: The patient is a smoker. She is not a drinker. FAMILY HISTORY: Significant for cerebrovascular disease. ALLERGIES: . REVIEW OF SYSTEMS: The patient is afebrile. The patient has not complain of headache. There is wheezing and cough. She has no chest pain. She is not having any fevers. She has no abdominal pain. She has no nausea or vomiting. She has no leg edema. PHYSICAL EXAMINATION: VITAL SIGNS: The blood pressure is 120/70 and the pulse is 89, saturation is 95% on 4 L. HEENT: Shows no facial swelling or erythema. LYMPHATIC: Shows no submandibular, cervical, or supraclavicular adenopathy. CARDIAC: Reveals regular rate and rhythm with normal S1, S2. LUNGS: Auscultation of lungs reveals rhonchi and wheezing bilaterally. There is a prolonged expiratory phase. ABDOMEN: Soft, nontender. There is no rebound or guarding. EXTREMITIES: Shows no leg edema or calf tenderness. There is no cyanosis, clubbing. SKIN: Shows no rashes. NEUROLOGICAL: Shows no focal abnormalities. LABORATORY DATA: White blood cell count is 5.93, hemoglobin is 14.5, and platelet count is 171. The BUN to creatinine ratio is 12 to 0.75. The other electrolytes are within normal limits. White blood cell count is 5.9, hemoglobin is 14.5, and the platelet count is 171. RADIOGRAPHIC DATA: Chest x-ray shows no active disease. IMPRESSION: 1. Acute on chronic respiratory failure. 2. Chronic obstructive pulmonary disease with acute exacerbation. 3. Gastroesophageal reflux. 4. Insomnia. PLAN: 1. Continue Solu-Medrol. 2. Continue bronchodilators. 3. Continue antibiotics. 4. Continue oxygen. 5. Await echocardiogram. Mario Negron MD [facility]/MODL /[id number]
[2020-08-04] MEDS ORDERED: HYDRALAZINE HCL 20 MG/ML VIAL IV PRN (10:15)
[2020-08-04] MEDS ORDERED: ACETAMINOPHEN 325 MG TAB PO PRN (10:15)
--- NOTE | 2020-08-04 12:49 | NUR ---
Spoke to pt regarding home oxygen. Pt states that she has a concentrator at home that she bought from her aunt. Pt is requesting a portable concentrator. States her insurance had already approved it about 2 weeks ago. RIGO called [facility] and spoke to Chloe Glez. She states that she does see that an oxygen concentrator and a portable oxygen concentrator has been approved and that they have plenty of documentation. Start date was 07/19/2020. [employer] auth # [id number]. They sent order/auth to [facility] [phone] CM called and spoke to Rolando with [employer]. States they tried to deliver to pt but she refused the concentrator and only wanted the portable concentrator. [facility] cannot fill order for portable without the other concentrator. State they still have order and pt can call Amanda at [phone] and put credit card on file and they can deliver portable today/tomorrow. RIGO returned to pt's bedside and informed her that [facility] cannot provide a portable without the concentrator. Pt now agreeable to use [facility]. RIGO gave her Amanda's number. Pt said she will call her today. RIGO will follow up later today.
[2020-08-04] MEDS ORDERED: AMLODIPINE BESYL5 MG PO (13:01)
[2020-08-04] MEDS ORDERED: ALBUTEROL1.25 MG/3 INH (13:01)
[2020-08-04] MEDS ORDERED: IPRATROPIU0.2 MG/1 M NEB (13:01)
[2020-08-04] MEDS ORDERED: LOSARTAN POTAS100 MG PO (13:01)
--- NOTE | 2020-08-04 15:11 | NUR ---
Per [facility] pharmacy patient has two rx which she refills and consists of albuterol and advair. Patient states "I have not covered advair because it is not covered by my insurance. I am supposed to use Brio inhaler, but I have not started using it." Medications have been reviewed with patient
--- NOTE | 2020-08-04 15:28 | NUR ---
RIGO called Amanda [phone] with Chrissie to follow up. She states she has not received a call from the pt. CM back to pt's bedside. Pt states she called twice but it went to voicemail. Pt states she's currently on hold with her insurance now. CM encouraged pt to call Chrissie back and leave a VM and Amanda will call her back.
--- NOTE | 2020-08-04 15:54 | NUR ---
patient refused to put on telemetry. Educated on importance of having it on. Patient refused to have telemetry
[2020-08-05] VITALS: BP 130/82
[2020-08-05] MEDS: ALBUTEROL/IPRATROPIUM 3 ML NEB NEB SCH ×2 (02:20→08:20)
[2020-08-05 04:00] VITALS: BP 94/49
[2020-08-05 06:38] LABS: BASOPHILS % 0.2 % (0.0-1.0); HEMATOCRIT 37.3 % (34.2-44.1); LYMPHOCYTES # (AUTO) 0.3 (1.0-3.2); LYMPHOCYTES % 4.1 % (18.0-39.1); MEAN CORPUSCULAR HEMOGLOBIN 34.7 pg (28-32); MEAN CORPUSCULAR HGB CONC 34.9 g/dL (31-35); MEAN CORPUSCULAR VOLUME 99.5 fL (81-99); MONOCYTES # (AUTO) 0.2 (0.2-0.8); MONOCYTES % 3.5 % (4.4-11.3); NEUTROPHILS # (AUTO) 5.8 (2.1-6.9); NEUTROPHILS % 91.6 % (38.7-80.0); PLATELET COUNT 134 x10e3/uL (140-360); RED BLOOD COUNT 3.75 x10e6/uL (3.6-5.1); RED CELL DISTRIBUTION WIDTH 16.3 % (11.7-14.4)
[2020-08-05 07:07] LABS: ANION GAP 20.4 mmol/L (8-16); BLOOD UREA NITROGEN 21 mg/dL (7-26); BUN/CREATININE RATIO 28 (6-25); CALCIUM 9.1 mg/dL (8.4-10.2); CARBON DIOXIDE 21 mmol/L (22-29); CHLORIDE 101 mmol/L (98-107); CREATININE, SERUM 0.74 mg/dL (0.57-1.11); EST GLOMERULAR FILTRATION RATE > 60 ML/MIN (60-); GLUCOSE 183 mg/dL (74-118); POTASSIUM 4.4 mmol/L (3.5-5.1); SODIUM 138 mmol/L (136-145)
[2020-08-05 07:52] VITALS: BP 130/67
[2020-08-05 08:15] LABS: HYPERSEGMENTED NEUTROPHILS FEW; LYMPHOCYTES % (MANUAL) 3 % (19-48); MONOCYTES % (MANUAL) 4 % (3.4-9.0); NEUTROPHILS % (MANUAL) 93 % (40-74); RBC MORPHOLOGY COMMENT NORMAL; TOXIC GRANULATION SLIGHT
[2020-08-05 08:17] LABS: PLATELET ESTIMATE ADEQUATE; PLATELET MORPHOLOGY COMMENT NORMAL
[2020-08-05 08:18] LABS: ANISOCYTOSIS SLIGHT
[2020-08-05] MEDS ORDERED: DOXYCYCLINE HY100 MG PO (08:32)
[2020-08-05] MEDS ORDERED: PROAIR HFA INH8.5 GM INH (08:32)
[2020-08-05] MEDS ORDERED: PREDNISONE20 MG PO (08:34)
[2020-08-05 08:41] VITALS: BP 130/67
[2020-08-05] MEDS ORDERED: METHYLPREDNISOLONE SOD SUCC 40 MG/ML VIAL 1ML IV SCH (09:00)
[2020-08-05] MEDS ORDERED: AMLODIPINE BESYLATE 5 MG TAB PO SCH (09:00)
[2020-08-05] MEDS: DOXYCYCLINE 100MG/NS 100ML 100 ML IV SCH (09:30)
--- NOTE | 2020-08-05 10:00 | NUR ---
Dr. Corona made rounds, he said it is OK from his standpoint for pt to dc home
--- NOTE | 2020-08-05 10:12 | NUR ---
Patient ambulated in the hallway on RA, 90-91%. MICHELL Caraballo notified. Waiting to see if patient can dc home
--- NOTE | 2020-08-05 10:19 | NUR ---
Per Rashmi Blake NP patient can dc home.
--- NOTE | 2020-08-05 10:46 | NUR ---
Discharge instructions and prescriptions given to the patient , she verbalized understanding. IV to the left ac was removed with tip intact.
--- NOTE | 2020-08-05 11:21 | Progress Note ---
DATE: 08/05/2020 Pulmonary Medicine Progress Note SUBJECTIVE: Mrs. Mack was seen and examined at bedside. She continues to have oxygen, which she is using for majority of time. However, I have took her off the oxygen and on room air at rest her oxygen saturation stayed at 93% to 95%. Nursing informed me she qualify for ambulatory oxygen based on her exertional desaturations. This has been ordered and is being acquired. Her breathing is getting close to baseline she says and she is mobilizing just as she normally does. She is even wheezing and she says that this is her baseline wheezing. REVIEW OF SYSTEMS: No headaches, no diarrhea. OBJECTIVE: VITAL SIGNS: Afebrile, vital signs noted, reviewed per the chart record. LUNGS: There is moderate air entry, sisrc-ez-ketfacrj wheezes, rare rhonchi. EXTREMITIES: No clubbing. No edema. LABORATORY DATA: With 21 bicarbonate, 0.7 creatinine. 6.3 white count, 37 hematocrit. IMPRESSION: 1. Chronic obstructive pulmonary disease with exacerbation. 2. Asthma history. 3. Chronic allergies. 4. Hypoxemia. PLAN: At this time, should continue steroids and the patient will have steroid wean. Continue antibiotics. Bronchodilators. Mobilization. Home oxygen has been ordered. The patient likely for outpatient followup if she continues to improve today. We want the nursing to walk around, ensure she is stable endurance rodrigez. MD HERMELINDA Shannon/BRITTNEY /[id number]
--- NOTE | 2020-08-08 03:13 | Discharge Summary ---
ADMISSION DIAGNOSES: Acute exacerbation of chronic obstructive pulmonary disease, insomnia, chronic pain. DISCHARGE DIAGNOSES: Acute exacerbation of chronic obstructive pulmonary disease, insomnia, chronic pain, acute on chronic respiratory failure due to chronic obstructive pulmonary disease with hypoxia. HISTORY: COPD, insomnia, herniated disk in back x6 and hypertension. SURGICAL HISTORY: Right total knee replacement, back surgery x3, cholecystectomy, left trigger finger surgery, right arm surgery, tubal ligation followed by hysterectomy. FAMILY HISTORY: One of the patient's aunt had diabetes and another one had a stroke. SOCIAL HISTORY: The patient admits to smoking for about 50 years and says she quit about six months ago. HOSPITAL COURSE: A 69-year-old female admits with complaints of four days of worsening shortness of breath and productive cough. She has white thick phlegm. She denies fever. She uses two albuterol inhalers per month. She has home O2 at home, but does not have a portable oxygen, so when she went to her health care administrator, he advised her she come to the hospital. On admission, the patient was started on IV doxycycline, IV steroids, nebulizers and home O2 eval was done. Upon evaluation, the patient does qualify for home oxygen, so a portable canister was delivered to her room. The patient's echo showed an EF of 50%. After two days of steroids and antibiotics the patient is feeling much better and is very adamant about discharge today. She was given prescription for doxycycline and prednisone p.o. and was cleared by pulmonology. She was advised to follow up with primary care and Pulmonology in 1 to 2 weeks. The patient understands instructions and agrees to plan. Dictated by Rashmi Blake NP MD ELMO Mas/MODL /[id number]
== END 2020-08-05 11:41 | disposition home or self-care (01) | DRG 190 ==
LOC: ER 13:59 → ERHOLD 14:00 → ER 16:52 → MED/SURG2 17:16
PROVIDERS: ADMIT Internal Medicine; ATTEND Internal Medicine
DX: J44.1 Chronic obstructive pulmonary disease with (acute) exacerbation (principal); J96.21 Acute and chronic respiratory failure with hypoxia; I10 Essential (primary) hypertension; F17.210 Nicotine dependence, cigarettes, uncomplicated; Z96.651 Presence of right artificial knee joint; Z83.3 Family history of diabetes mellitus; Z82.3 Family history of stroke; G47.00 Insomnia, unspecified; G89.29 Other chronic pain; Z90.49 Acquired absence of other specified parts of digestive tract; K21.9 Gastro-esophageal reflux disease without esophagitis; Z20.828 Contact with and (suspected) exposure to other viral communicable diseases
CPT/HCPCS: 36415; 71046; 80048; 80053; 85025; 85610; 85730; 93306; 99284; J2920; J2930; J7050; U0002